=== PATIENT | female | born 1955 | race Caucasian/White ===

== ENCOUNTER 2018-03-11 20:41 | Inpatient (IN) | payer MEDICARE ==
[2018-03-11] MEDS ORDERED: NORMAL SALINE 1000 ML 1,000 ML IV ONE (21:26)
[2018-03-11] MEDS ORDERED: PIPERACILLIN/TAZOBACTAM 4.5 GM VIAL IV ONE (21:26)
[2018-03-11 21:37] LABS: VENOUS BLOOD BASE EXCESS 5.9 mmol/L; VENOUS BLOOD HCO3 34.3 mmol/L (20-32); VENOUS BLOOD PH 7.34 (7.30-7.42)
[2018-03-11 21:43] LABS: ABSOLUTE BASOPHILS # (AUTO) 0.1 10^3/uL (0.0-0.2); ABSOLUTE EOSINOPHILS # (AUTO) 0.1 10^3/uL (0.0-0.6); ABSOLUTE LYMPHOCYTES (AUTO) 0.6 10^3/uL (0.5-4.7); ABSOLUTE MONOCYTES (AUTO) 0.9 10^3/uL (0.1-1.4); ABSOLUTE NEUT (AUTO) 9.2 10^3/uL (1.7-8.2); BASOPHILS % (AUTO) 0.5 % (0-2); HEMATOCRIT 39.7 % (36.0-47.0); HEMOGLOBIN 13.6 g/dL (12.0-15.5); LYMPHOCYTES % (AUTO) 5.5 % (13-45); MEAN CORPUSCULAR HEMOGLOBIN 32.4 pg (27.0-33.4); MEAN CORPUSCULAR HGB CONC 34.1 g/dL (32.0-36.0); MEAN CORPUSCULAR VOLUME 95 fl (80-97); MONOCYTES % (AUTO) 8.5 % (3-13); PLATELET COUNT 517 10^3/uL (150-450); RED BLOOD COUNT 4.18 10^6/uL (3.72-5.28); RED CELL DISTRIBUTION WIDTH 18.6 % (11.5-14.0); SEGMENTED NEUTROPHILS % (AUTO) 84.5 % (42-78); TOTAL CELLS COUNTED % (AUTO) 100 %; WHITE BLOOD COUNT 10.9 10^3/uL (4.0-10.5)
[2018-03-11 21:44] LABS: VENOUS BLOOD PCO2 65.7 mmHg (35-63)
[2018-03-11 21:50] LABS: INTERNATIONAL RATION (INR) 0.94
[2018-03-11 21:54] LABS: ALANINE AMINOTRANSFERASE 29 U/L (9-52); ALKALINE PHOSPHATASE 164 U/L (38-126); ANION GAP 7 (5-19); ASPARTATE AMINO TRANSFERASE 30 U/L (14-36); BILIRUBIN,DIRECT 0.5 mg/dL (0.0-0.4); BILIRUBIN,TOTAL 0.9 mg/dL (0.2-1.3); BLOOD UREA NITROGEN 50 mg/dL (7-20); CALCIUM 7.8 mg/dL (8.4-10.2); CARBON DIOXIDE 31 mmol/L (22-30); CHLORIDE 97 mmol/L (98-107); GLUCOSE 66 mg/dL (75-110); POTASSIUM 4.9 mmol/L (3.6-5.0); SODIUM 134.6 mmol/L (137-145); TOTAL PROTEIN 5.9 g/dL (6.3-8.2)
--- NOTE | 2018-03-11 21:59 | RADIOLOGY REPORT (SQ) ---
EXAM DESCRIPTION: XR CHEST 1 VIEW COMPLETED DATE/TME: 03/11/2018 21:26 CLINICAL HISTORY: 62 years, Female, aspiration COMPARISON: None. NUMBER OF VIEWS: 1 TECHNIQUE: Portable chest LIMITATIONS: None. FINDINGS: Heart size at upper limits of normal. Osteopenia. Subsegmental atelectasis left lung base. Minor pleural thickening in the right upper lobe/apex. Lungs are otherwise clear. No pneumothorax IMPRESSION: Right apical pleural thickening. Subsegmental atelectasis left lung base. Osteopenia copyright 2010 [employer]- All Rights Reserved
--- NOTE | 2018-03-11 22:55 | EKG REPORT ---
SEVERITY:- ABNORMAL ECG - SINUS RHYTHM LOW VOLTAGE THROUGHOUT NONSPECIFIC T ABNORMALITIES, ANT-LAT LEADS BORDERLINE PROLONGED QT INTERVAL : Confirmed by: Munira Holder MD 11-Mar-2018 22:55:14
[2018-03-11] MEDS ORDERED: IPRATROPIUM/ALBUTEROL 0.5-2.5 MG/3 ML AMPUL NEB ONE (23:15)
[2018-03-11] MEDS ORDERED: DEXAMETHASONE SOD PHOSPHATE INJ 4 MG/1 ML VIAL IV ONE (23:41)
[2018-03-11] MEDS ORDERED: LEVETIRACETAM 1000 MG/NACL-ISO 1,000 MG/100 ML RTUPB IV ONE (23:41)
--- NOTE | 2018-03-11 23:53 | ER Document Report ---
ED Respiratory Problem - General Chief Complaint: Respiratory Distress Stated Complaint: RESPIRATORY DISTRESS Time Seen by Provider: 03/11/18 21:02 Mode of Arrival: Medic Information source: Patient, Relative TRAVEL OUTSIDE OF THE [place] IN LAST 30 DAYS: No - HPI Patient complains to provider of: Short of breath, Other - This 62-year-old female with a history of metastatic melanoma to the brain which is received radiation and now chemotherapy who was started on a new therapy yesterday by an oncologist Dr. Leonardo who became increasingly short of breath and more confused today at home according to her sister prompting him to call EMS. She notes that she is also been somewhat more sleepy. She had had an episode similar to this at the end of December requiring hospitalization at [facility] with adjustment of cardiac medicines thereafter to help. They have not tried anything at home to try and help with this nothing makes it better or worse. - Related Data Allergies/Adverse Reactions: No Known Allergies Allergy (Unverified 03/11/18 23:33) Past Medical History - General Information source: Patient, Relative Cannot obtain history due to: Mentally challenged, Unstable vital signs, Altered mental status - Social History Smoking Status: Unknown if Ever Smoked Family History: None Review of Systems - Review of Systems -: Yes All other systems reviewed and negative Physical Exam - Vital signs Vitals: Temp Pulse Resp BP Pulse Ox 100.4 F 93 26 H 81/48 L 82 L 03/11/18 20:43 03/11/18 20:43 03/11/18 20:43 03/11/18 20:43 03/11/18 20:43 - General General appearance: Lethargic In distress: Mild - HEENT Head: Normocephalic Eyes: Normal Conjunctiva: Normal Cornea: Normal Extraocular movements intact: Yes Eyelashes: Normal Pupils: PERRL - Respiratory Respiratory status: Tachypnea Chest status: Nontender Breath sounds: Rhonchi, Wheezing - Cardiovascular Rhythm: Regular Heart sounds: Normal auscultation Murmur: No - Abdominal Inspection: Normal Distension: No distension Bowel sounds: Normal Tenderness: Nontender Organomegaly: No organomegaly - Back Back: Normal, Nontender - Extremities General upper extremity: Normal inspection, Nontender, Normal color, Normal ROM, Normal temperature General lower extremity: Normal inspection, Nontender, Normal color, Normal ROM, Normal temperature, Normal weight bearing. No: Melissa's sign - Neurological Neuro grossly intact: No Cognition: Confused, Inattentive, Short term memory loss Orientation: Disoriented to person, Disoriented to place, Disoriented to events Rommel Coma Scale Eye Opening: Spontaneous Rommel Coma Scale Verbal: Confused [place] Coma Scale Motor: Obeys Commands Rommel Coma Scale Total: 14 Speech: Normal Cranial nerves: Normal Cerebellar coordination: Normal Motor strength normal: LUE, RUE, LLE, RLE - Psychological Associated symptoms: Uncooperative Course - Re-evaluation Re-evalutation: 62-year-old female presents for evaluation of shortness of breath. Patient is hypoxic, lightly febrile with low blood pressure. We will plan for presumptive workup for sepsis. Given that she is hypoxic with shortness of breath we will presumptively treat for pneumonia with Zosyn. Patient with unremarkable lactate does have an elevated white blood cell count potentially as a result of her chronic steroid use over the last month. She is demonstrating persistent hypotension despite administration of fluids, will finish second liter if she fails to respond appropriately to 2 L of fluid will consider initiation of vasoactive substance, likely levo fed. Performed a bedside ultrasound to assess patient's gross cardiac function, her estimated ejection fraction is approximately 40-45%, do not believe that this is decompensated heart failure accounting for her persistent hypotension at this time. I discussed with the sister the potential of worsening respiratory status and cardiac status she notes at this time that she would like to pursue full [employer] for her sister as she would "like to be resuscitated". Given my concern for this patient I will contact the on-call hospitalist, she also demonstrates endorgan damage with a markedly elevated BUN and creatinine. I am concerned that this patient is profoundly ill. Have administered Decadron at this patient as she could potentially be adrenally insufficient, she is received antibiotics, she is received Keppra as well as she does have potential disease. She will likely require intensive care level care. She has been reassessed multiple times and continues to demonstrate an oxygen requirement with intermittent jerks. This potentially represent focal seizures. We will plan for reassessment continue monitoring in emergency department until she is appropriately middle of the hospitalist service by Dr. Kings Francois. - Vital Signs Vital signs: Temp Pulse Resp BP Pulse Ox 100.4 F 93 21 H 79/56 L 92 03/11/18 20:43 03/11/18 20:43 03/11/18 22:01 03/11/18 22:00 03/11/18 22:01 - Laboratory Result Diagrams: 03/11/18 21:05 03/11/18 21:05 Laboratory results interpreted by me: 03/11/18 03/11/18 03/11/18 21:05 21:05 21:05 WBC 10.9 H RDW 18.6 H Plt Count 517 H Seg Neutrophils % 84.5 H Lymphocytes % 5.5 L Absolute Neutrophils 9.2 H VBG pCO2 65.7 H* VBG HCO3 34.3 H Sodium 134.6 L Chloride 97 L Carbon Dioxide 31 H BUN 50 H Creatinine 2.78 H Est GFR ( Amer) 21 L Est GFR (Non-Af Amer) 17 L Glucose 66 L Calcium 7.8 L Direct Bilirubin 0.5 H Alkaline Phosphatase 164 H Total Protein 5.9 L Albumin 3.0 L Critical Care Note - Critical Care Note Total time excluding time spent on procedures (mins): 55 Discharge - Discharge Clinical Impression: Shortness of breath, Confusion Pneumonia Qualifiers: Pneumonia type: due to unspecified organism Laterality: unspecified laterality Lung location: unspecified part of lung Qualified Code(s): J18.9 - Pneumonia, unspecified organism Hypotension Qualifiers: Hypotension type: unspecified hypotension type Qualified Code(s): I95.9 - Hypotension, unspecified Condition: Serious Disposition: ADMITTED INPATIENT Admitting Provider: Hospitalist Unit Admitted: ICU
[2018-03-12] MEDS: NORMAL SALINE 1000 ML 1,000 ML IV PRN ×2 (00:07→01:03)
[2018-03-12] MEDS ORDERED: NORMAL SALINE 1000 ML 1,000 ML IV PRN (00:52)
[2018-03-12] MEDS ORDERED: ACETAMINOPHEN 650 MG SUPP.RECT PR PRN (01:04)
[2018-03-12] MEDS ORDERED: MEROPENEM 500 MG VIAL IV SCH (01:15)
[2018-03-12] MEDS ORDERED: ALBUTEROL SULFATE 0.083% NEB 2.5 MG/3 ML AMPUL NEB PRN (01:18)
[2018-03-12] MEDS ORDERED: DEXTROSE 5%-WATER 250 ML with NOREPINEPHRINE BITARTRATE 4 MG IV PRN ×2 (01:20)
[2018-03-12] MEDS ORDERED: MEROPENEM 500 MG VIAL IV PRN (01:24)
[2018-03-12] MEDS ORDERED: NOREPINEPHRINE BITARTRATE INJ/PF 4 MG/4 ML SDV IV ONE (01:26)
--- NOTE | 2018-03-12 03:50 | PDOC H&P ---
History of Present Illness Admission Date/PCP: 03/12/18 00:26 MEREDITH GONSALEZ MD Patient complains of: Dyspnea History of Present Illness: EZ OZUNA is a 62 year old female who presented to the emergency room with a 1 day history of increasing dyspnea. Her family members provided the history that she became increasingly short of breath and increasingly confused at home today following a new first time dose chemotherapeutic agent administered by Dr. Gonsalez yesterday. The family noted additional signs of lethargy and somnolence accompanying her dyspnea and confusion. They indicate that she had a similar episode once in the recent past due to her congestive heart failure. They have not identified any aggravating or ameliorating factors for her dyspnea and have not tried any remedies or treatments at home. Because of the patient's general confusion and lethargy she is unable to provide meaningful input into her medical care at this time. In the emergency room patient was found to be hypotensive and mildly febrile as well as hypoxic. She was noted to have a normal lactic acid and a chest x-ray that was unremarkable. This suggested that the patient may have sepsis is most likely errant as she is most likely hypovolemic and therefore hypotensive with a resultant dyspnea and I further suspect that the fever may well be due to the recent chemotherapy agent. The patient is immunosuppressed with a long course of oral and parenteral ster oids having been administered over the last month or so. She will be admitted for further evaluation and treatment with the primary goal to improve her regulatory status and hopefully thereby improve her oxygenation which should help to resolve her mental confusion. Her fever will also be treated symptomatically with acetaminophen and/or ibuprofen. She will receive supplemental oxygen as required to maintain oxygenation in the 93% or greater range. Past Medical History Past Medical History: Due to the patient's mental status she is unable to contribute substantially to her medical care and thus it is nearly impossible to obtain a reasonable past me dical, past surgical, social or family history as there is little available in the way of records and no family members are present to provide further information at the time of my evaluation. All information provided below is obtained from other records. Cardiac Medical History: Reports: Congestive Heart Failure Neurological Medical History: Reports: Other - Metastatic melanoma (brain) Endocrine Medical History: Denies: Diabetes Mellitus Type 1 Renal/ Medical History: Reports: End Stage Renal Disease Malignancy Medical History: Reports: Brain Cancer - Metastatic melanoma Past Surgical History Past Surgical History: Due to the patient's mental status she is unable to contribute substantially to her medical care and thus it is nearly impossible to obtain a reasonable past medical, past surgical, social or family history as there is little available in the way of records and no family members are present to provide further information at the time of my evaluation. All information provided below is obtained from other records. Social History Information Source: [facility] Records Lives with: Family Smoking Status: Never Smoker Frequency of Alcohol Use: None Hx Recreational Drug Use: No Drugs: None Hx Prescription Drug Abuse: No - Advance Directive Resuscitation Status: Full Code Surrogate healthcare decision maker:: Sister Family History Family History: Due to the patient's mental status she is unable to contribute substantially to her medical care and thus it is nearly impossible to obtain a reasonable past medical, past surgical, social or family history as there is little available in the way of records and no family members are present to provide further information at the time of my evaluation. All information provided below is obtained from other records. Parental Family History Reviewed: No Children Family History Reviewed: No Sibling(s) Family History Reviewed.: No Medication/Allergy Allergies/Adverse Reactions: No Known Allergies Allergy (Unverified 03/11/18 23:33) Review of Systems ROS unobtainable: Due to mental status - Confusion and lethargy secondary to hypovolemia and/or post chemotherapy changes Physical Exam Vital Signs: Temp Pulse Resp BP Pulse Ox 100.4 F 93 21 H 79/56 L 92 03/11/18 20:43 03/11/18 20:43 03/11/18 22:01 03/11/18 22:00 03/11/18 22:01 Intake & Output 03/10/18 03/11/18 03/12/18 23:59 23:59 23:59 Intake Total 1000 Balance 1000 Weight 97.069 kg General appearance: PRESENT: no acute distress, obese, other - Minimal responsive to verbal and mild tactile stimuli. Head exam: PRESENT: atraumatic, normocephalic Eye exam: PRESENT: conjunctiva pink. ABSENT: scleral icterus Ear exam: PRESENT: normal external ear exam. ABSENT: bleeding, drainage Mouth exam: PRESENT: dry mucosa, neck supple Neck exam: ABSENT: thyromegaly, tracheal deviation Respiratory exam: PRESENT: clear to auscultation nancy, symmetrical, unlabored Cardiovascular exam: PRESENT: RRR. ABSENT: clicks, gallop, rubs Pulses: PRESENT: normal radial pulses, normal dorsalis pedis pul Vascular exam: PRESENT: normal capillary refill. ABSENT: pallor GI/Abdominal exam: PRESENT: normal bowel sounds, soft Rectal exam: PRESENT: deferred Extremities exam: ABSENT: joint swelling, pedal edema Musculoskeletal exam: ABSENT: deformity, dislocation Neurological exam: PRESENT: altered - Minimally responsive as noted above Psychiatric exam: PRESENT: other - Minimally responsive as noted above Skin exam: PRESENT: dry, intact, warm. ABSENT: jaundice, rash, urticaria Results Laboratory Results: 03/11/18 21:05 03/11/18 21:05 03/11/18 03/11/18 03/11/18 21:05 21:05 21:05 WBC 10.9 H RBC 4.18 Hgb 13.6 Hct 39.7 MCV 95 MCH 32.4 MCHC 34.1 RDW 18.6 H Plt Count 517 H Seg Neutrophils % 84.5 H Lymphocytes % 5.5 L Monocytes % 8.5 Eosinophils % 1.0 Basophils % 0.5 Absolute Neutrophils 9.2 H Absolute Lymphocytes 0.6 Absolute Monocytes 0.9 Absolute Eosinophils 0.1 Absolute Basophils 0.1 VBG pH VBG pCO2 VBG HCO3 VBG Base Excess Sodium 134.6 L Potassium 4.9 Chloride 97 L Carbon Dioxide 31 H Anion Gap 7 BUN 50 H Creatinine 2.78 H Est GFR ( Amer) 21 L Est GFR (Non-Af Amer) 17 L Glucose 66 L Lactic Acid 1.2 Calcium 7.8 L Total Bilirubin 0.9 AST 30 ALT 29 Alkaline Phosphatase 164 H Total Protein 5.9 L Albumin 3.0 L 03/11/18 21:05 WBC RBC Hgb Hct MCV MCH MCHC RDW Plt Count Seg Neutrophils % Lymphocytes % Monocytes % Eosinophils % Basophils % Absolute Neutrophils Absolute Lymphocytes Absolute Monocytes Absolute Eosinophils Absolute Basophils VBG pH 7.34 VBG pCO2 65.7 H* VBG HCO3 34.3 H VBG Base Excess 5.9 Sodium Potassium Chloride Carbon Dioxide Anion Gap BUN Creatinine Est GFR ( Amer) Est GFR (Non-Af Amer) Glucose Lactic Acid Calcium Total Bilirubin AST ALT Alkaline Phosphatase Total Protein Albumin Impressions: Chest X-Ray 03/11/18 21:26 IMPRESSION: Right apical pleural thickening. Subsegmental atelectasis left lung base. Osteopenia copyright 2010 [employer]- All Rights Reserved Assessment & Plan - Diagnosis (1) Hypotension Qualifiers: Hypotension type: unspecified hypotension type Qualified Code(s): I95.9 - Hypotension, unspecified Is this a current diagnosis for this admission?: Yes Plan: Patient's hypertension will be treated as hypovolemia initially with fluid resuscitation attempted with IV crystalloids. Consideration for use of a pressor agent will be made if patient does not respond well to fluid resuscitation. (2) Acute respiratory failure with hypoxia Is this a current diagnosis for this admission?: Yes Plan: Patient's respiratory failure be addressed with supplemental oxygen required to maintain her O2 sat greater than 93%. Patient shows no respiratory distress at this time and I do not think that it is appropriate to intubate this patient unless absolutely required. (3) Acute encephalopathy Is this a current diagnosis for this admission?: Yes Plan: After addressing the patient's hypoxia and hypovolemia if her encephalopathy has not improved further evaluation will be undertaken. Patient may need to have a CT scan or an MRI performed to evaluate her intracranial status. (4) Malignant melanoma metastatic to brain Is this a current diagnosis for this admission?: Yes Plan: With a known brain tumor and a recent new chemotherapeutic agent as part of this history many possibilities as to etiology of her several problems listed above need to be considered. - Time Time Spent: 30 to 50 Minutes Critical Time spent with patient: Less than 15 minutes - Inpatient Certification Based on my medical assessment, after consideration of the patient's comorbidities, presenting symptoms, or acuity I expect that the services needed warrant INPATIENT care.: Yes I certify that my determination is in accordance with my understanding of Medicare's requirements for reasonable and necessary INPATIENT services [42 CFR 412.3e].: Yes Medical Necessity: Significant Comorbidiites Make Outpatient Treatment Too Risky, Need Close Monitoring Due to Risk of Patient Decompensation, Need For IV Fluids, Need For Continuous Telemetry Monitoring, Risk of Complication if Not Cared For in Hospital
[2018-03-12] MEDS ORDERED: MEROPENEM 500 MG in NORMAL SALINE 50 ML IV SCH (06:00)
[2018-03-12] MEDS: FONDAPARINUX SODIUM INJ 2.5 MG/0.5 ML DISP.SYRIN SUBCUT SCH (08:01)
[2018-03-12] MEDS: LEVALBUTEROL HCL NEB 1.25 MG/3 ML AMPUL NEB SCH ×2 (08:24→15:15)
[2018-03-12] MEDS: IPRATROPIUM BROMIDE 0.02% NEB 0.5 MG/2.5 ML AMPUL NEB SCH ×2 (08:24→15:15)
[2018-03-12] MEDS ORDERED: LIDOCAINE 1% INJ-PF (10 MG/ML) 30 ML SDV ONE (09:35)
[2018-03-12 10:28] LABS: HEMATOCRIT 37.4 % (36.0-47.0); HEMOGLOBIN 12.6 g/dL (12.0-15.5); MEAN CORPUSCULAR HEMOGLOBIN 31.9 pg (27.0-33.4); MEAN CORPUSCULAR HGB CONC 33.7 g/dL (32.0-36.0); MEAN CORPUSCULAR VOLUME 94 fl (80-97); PLATELET COUNT 466 10^3/uL (150-450); RED BLOOD COUNT 3.96 10^6/uL (3.72-5.28); RED CELL DISTRIBUTION WIDTH 18.2 % (11.5-14.0); WHITE BLOOD COUNT 8.1 10^3/uL (4.0-10.5)
--- NOTE | 2018-03-12 10:40 | PDOC CONSULTATION ---
Consultation Consult Date: 03/12/18 Consult reason:: Hematology/Oncology consultation was requested for patient with known metastatic melanoma with brain mets. History of Present Illness Admission Date/PCP: 03/12/18 00:26 MEREDITH BOTELLO MD History of Present Illness: EZ OZUNA is a 62 year old female who was diagnosed with metastatic melanoma last year. She was found to have new brain mets about 1-2 months ago a nd received brain radiation for this. Her steroids had been weaned and she was started on new immunotherapy with her first dose last week. Her sister states that yesterday, she had increased dyspnea and was not responding as well as she had been previously. Her eyes were glassy. In the ED, she has been started on antibiotics for pneumonia. Currently, she is able to answer in 1 word sentences. She tracks with her eyes, but not consistently. She does not recognize me, but knows her sister. Past Medical History Cardiac Medical History: Reports: Congestive Heart Failure Neurological Medical History: Reports: Other - Metastatic melanoma (brain) Endocrine Medical History: Denies: Diabetes Mellitus Type 1 Renal/ Medical History: Reports: End Stage Renal Disease Malignancy Medical History: Reports: Brain Cancer - Metastatic melanoma Social History Lives with: Family Smoking Status: Never Smoker Frequency of Alcohol Use: None Hx Recreational Drug Use: No Drugs: None Hx Prescription Drug Abuse: No - Advance Directive Resuscitation Status: Full Code Family History Family History: Reviewed & Not Pertinent Parental Family History Reviewed: Yes Children Family History Reviewed: No Sibling(s) Family History Reviewed.: Yes Medication/Allergy Allergies/Adverse Reactions: No Known Allergies Allergy (Unverified 03/11/18 23:33) Review of Systems ROS unobtainable: Due to mental status Physical Exam Vital Signs: Temp Pulse Resp BP Pulse Ox 100.4 F 71 14 120/72 91 L 03/11/18 20:43 03/12/18 08:24 03/12/18 09:50 03/12/18 10:11 03/12/18 10:11 Intake & Output 03/11/18 03/12/18 03/13/18 06:59 06:59 06:59 Intake Total 3032 156 Balance 3032 156 Weight 97.069 kg General appearance: PRESENT: obese Exam: 62 year old female. Head exam: PRESENT: normocephalic, other - Pastor facies from steroids. Eye exam: PRESENT: EOMI Mouth exam: PRESENT: moist Neck exam: ABSENT: lymphadenopathy, tenderness Respiratory exam: PRESENT: clear to auscultation nancy Cardiovascular exam: PRESENT: RRR GI/Abdominal exam: PRESENT: soft. ABSENT: tenderness Extremities exam: PRESENT: other - Left ankle in walking cast (this has been present as long as I have known her). ABSENT: pedal edema Neurological exam: PRESENT: awake. ABSENT: oriented to place, oriented to time, oriented to situation Psychiatric exam: PRESENT: depressed Focused psych exam: ABSENT: restlessness Skin exam: PRESENT: normal color Results Laboratory Results: 03/11/18 03/11/18 03/11/18 21:05 21:05 21:05 WBC 10.9 H RBC 4.18 Hgb 13.6 Hct 39.7 MCV 95 MCH 32.4 MCHC 34.1 RDW 18.6 H Plt Count 517 H Seg Neutrophils % 84.5 H Lymphocytes % 5.5 L Monocytes % 8.5 Eosinophils % 1.0 Basophils % 0.5 Absolute Neutrophils 9.2 H Absolute Lymphocytes 0.6 Absolute Monocytes 0.9 Absolute Eosinophils 0.1 Absolute Basophils 0.1 VBG pH VBG pCO2 VBG HCO3 VBG Base Excess Sodium 134.6 L Potassium 4.9 Chloride 97 L Carbon Dioxide 31 H Anion Gap 7 BUN 50 H Creatinine 2.78 H Est GFR ( Amer) 21 L Est GFR (Non-Af Amer) 17 L Glucose 66 L Lactic Acid 1.2 Calcium 7.8 L Total Bilirubin 0.9 AST 30 ALT 29 Alkaline Phosphatase 164 H Total Protein 5.9 L Albumin 3.0 L 03/11/18 21:05 WBC RBC Hgb Hct MCV MCH MCHC RDW Plt Count Seg Neutrophils % Lymphocytes % Monocytes % Eosinophils % Basophils % Absolute Neutrophils Absolute Lymphocytes Absolute Monocytes Absolute Eosinophils Absolute Basophils VBG pH 7.34 VBG pCO2 65.7 H* VBG HCO3 34.3 H VBG Base Excess 5.9 Sodium Potassium Chloride Carbon Dioxide Anion Gap BUN Creatinine Est GFR ( Amer) Est GFR (Non-Af Amer) Glucose Lactic Acid Calcium Total Bilirubin AST ALT Alkaline Phosphatase Total Protein Albumin Status: Image reviewed by me Assessment & Plan - Diagnosis (1) Malignant melanoma metastatic to brain Is this a current diagnosis for this admission?: Yes Plan: She was just started on new immunotherapy which should have some penetration to the brain. It is too early to determine if this is working yet, but possible side effects include increased immune reaction, edema and pneumonitis/gastritis with fevers. I will restart Dexamethasone. (2) Acute encephalopathy Is this a current diagnosis for this admission?: Yes Plan: May be due to increased brain edema. Again, will restart steroids. She had been able to swallow pills without difficulty. I would make sure swallowing eval has been performed and IF OK, would change all meds back to PO if possible. (3) Hypotension Qualifiers: Hypotension type: unspecified hypotension type Qualified Code(s): I95.9 - Hypotension, unspecified Is this a current diagnosis for this admission?: Yes Plan: resolved with fluids. She is on antibiotics as well. - Plan Summary Plan Summary: I will continue to follow her with you. Please call me with any questions or concerns. I agree with electrolyte replacement and other supportive measures. Patient was discussed with Dr. Kimball in the ED.
[2018-03-12 10:41] LABS: ALANINE AMINOTRANSFERASE 36 U/L (9-52); ALBUMIN 2.7 g/dL (3.5-5.0); ALKALINE PHOSPHATASE 151 U/L (38-126); ANION GAP 7 (5-19); ASPARTATE AMINO TRANSFERASE 33 U/L (14-36); BILIRUBIN,DIRECT 0.5 mg/dL (0.0-0.4); BILIRUBIN,TOTAL 0.6 mg/dL (0.2-1.3); BLOOD UREA NITROGEN 39 mg/dL (7-20); CALCIUM 7.1 mg/dL (8.4-10.2); CARBON DIOXIDE 28 mmol/L (22-30); CHLORIDE 104 mmol/L (98-107); GLUCOSE 120 mg/dL (75-110); POTASSIUM 4.7 mmol/L (3.6-5.0); SODIUM 138.9 mmol/L (137-145); TOTAL PROTEIN 5.4 g/dL (6.3-8.2)
[2018-03-12] MEDS: PANTOPRAZOLE SODIUM 40 MG VIAL IV SCH ×2 (10:47→21:37)
[2018-03-12] MEDS: MEROPENEM 500 MG in NORMAL SALINE 50 ML IV SCH ×2 (10:47→21:37)
[2018-03-12 10:48] LABS: ABSOLUTE LYMPHOCYTES# (MANUAL) 0.3 10^3/uL (0.5-4.7); ABSOLUTE MONOCYTES # (MANUAL) 0.4 10^3/uL (0.1-1.4); ABSOLUTE NEUTROPHILS# (MANUAL) 7.4 10^3/uL (1.7-8.2); BASOPHILS % (MANUAL) 0 % (0-2); EOSINOPHILS % (MANUAL) 0 % (0-6); LYMPHOCYTES % (MANUAL) 4 % (13-45); MONOCYTES % (MANUAL) 5 % (3-13); SEGMENTED NEUTROPHILS % (MAN) 91 % (42-78); TOTAL CELLS COUNTED 100
[2018-03-12] MEDS: LEVETIRACETAM 500 MG/NACL-ISO 500 MG/100 ML RTUPB IV SCH ×2 (10:48→22:50)
[2018-03-12 10:49] LABS: POIKILOCYTOSIS SLIGHT; TOXIC VACUOLATION PRESENT
[2018-03-12 10:50] LABS: ANISOCYTOSIS 2+; PLATELET CLUMPS PRESENT; PLATELET COMMENT ADEQUATE; TEAR DROP CELLS SLIGHT
--- NOTE | 2018-03-12 10:55 | RADIOLOGY REPORT (SQ) ---
EXAM DESCRIPTION: CHEST SINGLE VIEW COMPLETED DATE/TIME: 03/12/2018 10:24 am REASON FOR STUDY: central line placement COMPARISON: AP chest 03/11/2018 EXAM PARAMETERS: NUMBER OF VIEWS: One view. TECHNIQUE: Single frontal radiographic view of the chest acquired. RADIATION DOSE: NA LIMITATIONS: None. FINDINGS: LUNGS AND PLEURA: Minimal right apical pleural thickening/ parenchymal scarring is unchang ed from 03/11/2018. Minimal lingular scarring or atelectasis is also unchanged from 03/15/2018. No acute infiltrates. No pleural effusion or pneumothorax. MEDIASTINUM AND HILAR STRUCTURES: No masses. Contour normal. HEART AND VASCULAR STRUCTURES: Stable mild cardiomegaly BONES: No acute findings. HARDWARE: Left jugular central line tip superior vena cava. OTHER: No other significant finding. IMPRESSION: Left jugular central line tip superior vena cava. No pneumothorax. TECHNICAL DOCUMENTATION: JOB ID: [id number] [employer] All Rights Reserved Reading location - IP/workstation name: [email or web address]
--- NOTE | 2018-03-12 11:18 | RADIOLOGY REPORT (SQ) ---
EXAM DESCRIPTION: CT HEAD WITHOUT COMPLETED DATE/TIME: 03/12/2018 10:46 am REASON FOR STUDY: AMS; Brain Mets COMPARISON: AP chest 03/12/2018 MRI brain 02/14/2018, 12/18/2016 TECHNIQUE: Axial images acquired through the brain without intravenous contrast. Images reviewed wi th bone, brain and subdural windows. Additional sagittal and coronal reconstructions were generated. Images stored on PACS. All CT scanners at this facility use dose modulation, iterative reconstruction, and/or weight based d osing when appropriate to reduce radiation dose to as low as reasonably achievable (ALARA). [facility]: Dose Right [facility]: CareDose [facility]: Dose Right [facility]: Teradose 4D [facility]: [employer] RADIATION DOSE: CT Rad equipment meets quality standard of care and radiation dose reduction techniq ues were employed. CTDIvol: 53.2 mGy. DLP: 1044 mGy-cm. mGy. LIMITATIONS: None. FINDINGS: VENTRICLES: Normal size and contour. CEREBRUM and CEREBELLUM: Multiple subcentimeter hyperdense nodules are scattered throughout the cereb ral hemispheres bilaterally. A 1 cm nodule is present in the right lateral basal ganglia, unchanged from MRI brain 02/14/2018. No acute superimposed hemorrhage. No mass effect or midline shift. No CT evidence of large territor y acute ischemic change. These findings were called to Ramila Hester STAYING MACHINE OPERATOR. EXTRAAXIAL SPACES: No fluid collections. No masses. ORBITS AND GLOBE: No intra- or extraconal masses. Normal contour of globe without masses. CALVARIUM: No fracture. PARANASAL SINUSES: No fluid or mucosal thickening. SOFT TISSUES: No mass or hematoma. OTHER: No other significant finding. 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 COMMENT: Quality ID # [id number]: Final reports with documentation of one or more dose reduction techniques (e.g., Automated exposure control, adjustment of the mA and/or kV according to patient size, use of iterative reconstruction technique) TECHNICAL DOCUMENTATION: JOB ID: [id number] [employer]- All Rights Reserved Reading location - IP[facility]workstation [facility]: [facility] [place]
[2018-03-12] MEDS: DEXAMETHASONE SOD PHOSPHATE INJ 4 MG/1 ML VIAL IV SCH ×2 (12:33→18:03)
--- NOTE | 2018-03-12 15:37 | OPERATIVE REPORT E ---
Operative Report NAME: EZ OZUNA : 1955 AGE: 62Y DATE OF SURGERY: 03/12/2018 ROOM: 602 PREOPERATIVE DIAGNOSIS: POOR VEINS FOR INTRAVENOUS ACCESS; NEEDED CENTRAL LINE FOR CT SCAN OF THE BRAIN. POSTOPERATIVE DIAGNOSIS: POOR VEINS FOR INTRAVENOUS ACCESS; NEEDED CENTRAL LINE FOR CT SCAN OF THE BRAIN. OPERATION: INSERTION OF LEFT INTERNAL JUGULAR VEIN TRIPLE LUMEN CATHETER UNDER ULTRASOUND GUIDANCE. SURGEON: FISH VALENZUELA M.D. ANESTHESIA: Local. PROCEDURE: The patient was placed in slight Trendelenburg position, and the left neck prepped and draped in the usual sterile fashion. We used an ultrasound and the left internal jugular vein was identified. Local anesthesia infiltrated. Needle was inserted several times, but unable to obtain; eventually, the left internal jugular vein was then punctured with non pulsatile backflow and guidewire passed through the needle directed to the superior vena cava. Puncture site enlarged and dilated. A triple lumen catheter was inserted through the guidewire to a distance of about 18 cm. All the three ports aspirated blood easily and instilled saline easily. Catheter was anchored to the skin with 3-0 silk. Biopatch was placed at the insertion site, and triple lumen catheter inserted. Chest x-ray will be obtained for placement and to rule out any pneumothorax. Chest x ray was done which showed catheter in good position with the tip at the superior vena cava with no pneumothorax. DICTATING PHYSICIAN: FISH VALENZUELA M.D. [id number] PHY#: [id number] ID: [id number] JOB#: [id number] ACCT: [id number] cc:FISH VALENZUELA M.D. > [facility]
--- NOTE | 2018-03-12 17:28 | Progress Note ---
Provider Note Provider Note: 62 y.o. F with metastatic melanoma and newly diagnosed brain mets. The patient received radiation therapy for her brain mets. Steroids were recently weaned and the patient was started on a new immunotherapy approx. 1 week ago. She was brought to [facility] last night by her sister for AMS and dyspnea. According the the sister, the patient has been acting more and more confused since her new treatment started. Upon assessment, the patient is resting in bed on supplemental oxygen via nasal cannula. She is tachypneic, receiving a nebulizer treatment. The patient is awake, able to answer most questions appropriately using 2-3 word phrases. The patient knows her name, her location, and the name of her sister (at bedside), but is unsure why she is in the hospital. The patient makes good eye contact. PERRLA. Able to follow basic commands. 5/5 strength in all extremities. She is noted to have spams to her RUE and RLE, which the sister states is new since the first immunotherapy infusion. METASTATIC MELANOMA w/BRAIN METS: patient of Dr. Gonsalez. Resume dexamethasone. Keppra IV for seizure prophylaxis. HYPOTENSION: SEPSIS secondary to PNA vs. SIRS response to new immunotherapy. Now requiring levophed gtt to maintain MAP>65. Bedside US in ED estimates the LVEF 40% but this is somewhat unreliable. Patient has no history of heart disease. No ECHOcardiogram on record. BNP elevated >2000. Plan to check ECHOcardiogram tomorrow. HYPOXIA: PNA vs. SIRS response to new immunotherapy. Empiric antibiotic coverage for PNA. Patient may require CT chest if she continues to experience respiratory distress. ARF: secondary to hypotension. Creatinine improving following IVF and improved blood pressure. Cr 2.58-->1.3 ENCEPHALOPATHY: multifactoral - hypotension, hypoxia, acute renal failure, brain lesions. Seems to be improving with IVF, vasopressors and supplemental O2 CODE STATUS: sister is POA. States she wants 'everything done. Full resuscitation.'
[2018-03-12] MEDS ORDERED: LEVETIRACETAM 500 MG/NACL-ISO 500 MG/100 ML RTUPB IV ONE (22:11)
[2018-03-13] MEDS: LEVALBUTEROL HCL NEB 1.25 MG/3 ML AMPUL NEB SCH ×4 (00:25→23:36)
[2018-03-13] MEDS: IPRATROPIUM BROMIDE 0.02% NEB 0.5 MG/2.5 ML AMPUL NEB SCH ×4 (00:25→23:36)
[2018-03-13 04:29] LABS: HEMATOCRIT 34.2 % (36.0-47.0); HEMOGLOBIN 11.7 g/dL (12.0-15.5); MEAN CORPUSCULAR HEMOGLOBIN 32.1 pg (27.0-33.4); MEAN CORPUSCULAR HGB CONC 34.1 g/dL (32.0-36.0); MEAN CORPUSCULAR VOLUME 94 fl (80-97); PLATELET COUNT 467 10^3/uL (150-450); RED BLOOD COUNT 3.64 10^6/uL (3.72-5.28); RED CELL DISTRIBUTION WIDTH 17.8 % (11.5-14.0); WHITE BLOOD COUNT 6.9 10^3/uL (4.0-10.5)
[2018-03-13 04:55] LABS: ALANINE AMINOTRANSFERASE 29 U/L (9-52); ALBUMIN 2.6 g/dL (3.5-5.0); ALKALINE PHOSPHATASE 128 U/L (38-126); ASPARTATE AMINO TRANSFERASE 26 U/L (14-36); BILIRUBIN,DIRECT 0.5 mg/dL (0.0-0.4); BILIRUBIN,TOTAL 0.6 mg/dL (0.2-1.3); BLOOD UREA NITROGEN 26 mg/dL (7-20); CALCIUM 7.7 mg/dL (8.4-10.2); GLUCOSE 159 mg/dL (75-110); POTASSIUM 4.7 mmol/L (3.6-5.0); TOTAL PROTEIN 5.2 g/dL (6.3-8.2)
[2018-03-13 05:00] LABS: CARBON DIOXIDE 31 mmol/L (22-30); CHLORIDE 105 mmol/L (98-107); SODIUM 138.6 mmol/L (137-145)
[2018-03-13 05:03] LABS: ANION GAP 3 (5-19)
[2018-03-13 05:05] LABS: BASOPHILS % (MANUAL) 0 % (0-2); EOSINOPHILS % (MANUAL) 0 % (0-6)
[2018-03-13 05:06] LABS: ABSOLUTE LYMPHOCYTES# (MANUAL) 0.4 10^3/uL (0.5-4.7); ABSOLUTE MONOCYTES # (MANUAL) 0.1 10^3/uL (0.1-1.4); ABSOLUTE NEUTROPHILS# (MANUAL) 6.3 10^3/uL (1.7-8.2); ANISOCYTOSIS 1+; BAND NEUTROPHILS % (MANUAL) 1 % (3-5); LYMPHOCYTES % (MANUAL) 6 % (13-45); MONOCYTES % (MANUAL) 2 % (3-13); PLATELET COMMENT ADEQUATE; PLATELET GIANT PRESENT; PLATELET LARGE PRESENT; SCHISTOCYTES SLIGHT; SEGMENTED NEUTROPHILS % (MAN) 91 % (42-78); TOTAL CELLS COUNTED 100
[2018-03-13] MEDS: PANTOPRAZOLE SODIUM 40 MG VIAL IV SCH ×2 (11:32→21:27)
[2018-03-13] MEDS: LEVETIRACETAM 500 MG/NACL-ISO 500 MG/100 ML RTUPB IV SCH ×2 (11:32→21:26)
[2018-03-13] MEDS: DEXAMETHASONE SOD PHOSPHATE INJ 4 MG/1 ML VIAL IV SCH ×2 (11:32→17:13)
[2018-03-13] MEDS: MEROPENEM 500 MG in NORMAL SALINE 50 ML IV SCH ×2 (11:32→21:26)
[2018-03-13] MEDS: FONDAPARINUX SODIUM INJ 2.5 MG/0.5 ML DISP.SYRIN SUBCUT SCH (11:33)
--- NOTE | 2018-03-13 13:56 | PDOC PROGRESS REPORT ---
Subjective Progress Note for:: 03/13/18 Subjective:: 62 y.o. F with metastatic melanoma and newly diagnosed brain mets. The patient received radiation therapy for her brain mets. Steroids were recently weaned and the patient was started on a new immunotherapy approx. 1 week ago. Admitted to [facility] for SEPSIS - suspected infection source being PNA. The patient was seen this morning on rounds, she is resting comfortably in bed on nasal cannula. She looks markedly better when compared to yesterday. The patient is awake and oriented to time, place, person and situation. She is able to answer questions appropriately, although, she struggles with more complex questions (who is the president? why are you taking medication x?). She follows command appropriately. 5/5 strength in all extremities. Her lungs are clear to auscultation, but she requires supplemental O2 to maintain SPO2>90% (she does not wear O2 at home). Levophed gtt has been off since yesterday at 1200. Blood pressure has remained stable. The patient no longer requires ICU care, plan to downgrade to IMCU. Reason For Visit: ACUTE HYPOXIC RESPIRATORY FAILURE Physical Exam Vital Signs: Temp Pulse Resp BP Pulse Ox 97.5 F 73 15 108/61 98 03/13/18 05:26 03/13/18 00:27 03/13/18 06:00 03/13/18 05:48 03/13/18 06:00 Intake & Output 03/12/18 03/13/18 03/14/18 06:59 06:59 06:59 Intake Total 3032 732 Output Total 200 Balance 3032 532 Weight 97.069 kg 95.7 kg General appearance: PRESENT: no acute distress, morbidly obese Head exam: PRESENT: atraumatic Eye exam: PRESENT: conjunctiva pink, PERRLA Mouth exam: PRESENT: dry mucosa, tongue midline, other - cracked/dry lips Teeth exam: PRESENT: poor dentation Neck exam: PRESENT: full ROM Respiratory exam: PRESENT: clear to auscultation nancy, symmetrical, unlabored. ABSENT: rhonchi, wheezes Cardiovascular exam: PRESENT: +S1, +S2 Pulses: PRESENT: normal radial pulses, normal dorsalis pedis pul Vascular exam: PRESENT: normal capillary refill GI/Abdominal exam: PRESENT: normal bowel sounds, soft. ABSENT: tenderness Rectal exam: PRESENT: deferred Extremities exam: PRESENT: full ROM, +1 edema - BILATERAL LOWER EXTREMITIES Musculoskeletal exam: PRESENT: full ROM, normal inspection Neurological exam: PRESENT: alert, awake, oriented to person, oriented to place, oriented to time. ABSENT: oriented to situation Skin exam: PRESENT: dry, intact, warm. ABSENT: normal color - SCATTERED PATCHES OF ERYTHEMA TO FACE, SCALP, ANTERIOR CHEST WALL. LIKELY SECONDARY TO CHEMO. THE PATIENT DOES NOT COMPLAIN OF PRURITIS. Results Laboratory Results: 03/13/18 04:20 03/13/18 04:20 03/12/18 03/12/18 03/12/18 10:13 10:13 10:13 WBC 8.1 RBC 3.96 Hgb 12.6 Hct 37.4 MCV 94 MCH 31.9 MCHC 33.7 RDW 18.2 H Plt Count 466 H Seg Neutrophils % Not Reportable Lymphocytes % Not Reportable Monocytes % Not Reportable Eosinophils % Not Reportable Basophils % Not Reportable Absolute Neutrophils Not Reportable Absolute Lymphocytes Not Reportable Absolute Monocytes Not Reportable Absolute Eosinophils Not Reportable Absolute Basophils Not Reportable Sodium 138.9 Potassium 4.7 Chloride 104 Carbon Dioxide 28 Anion Gap 7 BUN 39 H Creatinine 1.83 H Est GFR ( Amer) 34 L Est GFR (Non-Af Amer) 28 L Glucose 120 H Lactic Acid 0.6 L Calcium 7.1 L Magnesium Total Bilirubin 0.6 AST 33 ALT 36 Alkaline Phosphatase 151 H Ammonia Total Protein 5.4 L Albumin 2.7 L 03/13/18 03/13/18 03/13/18 04:20 04:20 04:20 WBC 6.9 RBC 3.64 L Hgb 11.7 L Hct 34.2 L MCV 94 MCH 32.1 MCHC 34.1 RDW 17.8 H Plt Count 467 H Seg Neutrophils % Not Reportable Lymphocytes % Not Reportable Monocytes % Not Reportable Eosinophils % Not Reportable Basophils % Not Reportable Absolute Neutrophils Not Reportable Absolute Lymphocytes Not Reportable Absolute Monocytes Not Reportable Absolute Eosinophils Not Reportable Absolute Basophils Not Reportable Sodium 138.6 Potassium 4.7 Chloride 105 Carbon Dioxide 31 H Anion Gap 3 L BUN 26 H Creatinine 0.88 Est GFR ( Amer) > 60 Est GFR (Non-Af Amer) > 60 Glucose 159 H Lactic Acid Calcium 7.7 L Magnesium 2.2 Total Bilirubin 0.6 AST 26 ALT 29 Alkaline Phosphatase 128 H Ammonia < 8.7 L Total Protein 5.2 L Albumin 2.6 L 03/12/18 10:13 NT-Pro-B Natriuret Pep 2840 H Impressions: Chest X-Ray 03/12/18 00:00 IMPRESSION: Left jugular central line tip superior vena cava. No pneumothorax. 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 Status: Imported from PACS Assessment & Plan - Diagnosis (1) Sepsis Qualifiers: Sepsis type: sepsis due to unspecified organism Qualified Code(s): A41.9 - Sepsis, unspecified organism Is this a current diagnosis for this admission?: Yes (2) Acute respiratory failure with hypoxia Is this a current diagnosis for this admission?: Yes Plan: Improving Requiring supplemental O2 via nasal cannula for SPO2>90% PNA vs. SIRS response to new immunotherapy vs. new CHF. CXR shows pleural thickening in RUL and LLL atelectasis Empiric antibiotic coverage for PNA. 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 Keppra IV for seizure prophylaxis. Head CT shows multiple subcentimeter nodules scattered throughout bilateral cerebral hemispheres. 1cm nodule in R basal ganglia. Unchanged from 01/2018 Seizure precautions (4) Acute renal failure Qualifiers: Acute renal failure type: unspecified Qualified Code(s): N17.9 - Acute kidney failure, unspecified Is this a current diagnosis for this admission?: Yes Plan: Resolved No history of renal disease Likely secondary to hypotension secondary to sepsis/sirs BP now improved Initial Creatinine 2.58, now improved to 0.88 (5) Acute encephalopathy Is this a current diagnosis for this admission?: Yes Plan: Multifactoral - hypotension, hypoxia, acute renal failure, brain lesions. Greatly improved with IVF, supplemental O2, and normalization of BP A&O x 4 but difficulty with complex questioning CT Head results listed above, no need for further imaging (6) Hypotension Qualifiers: Hypotension type: unspecified hypotension type Qualified Code(s): I95.9 - Hypotension, unspecified Is this a current diagnosis for this admission?: Yes Plan: Resolved. Secondary to SEPSIS secondary to PNA vs. SIRS response to new immunotherapy. Received IVF in ED and briefly on levophed gtt BP now within normal range without need for vasoactives/aggressive IVF resuscitation - Time Time Spent with patient: 15-24 minutes Medications reviewed and adjusted accordingly: Yes Anticipated discharge: Home - Inpatient Certification Based on my medical assessment, after consideration of the patient's co morbidities, presenting symptoms, or acuity I expect that the services needed warrant INPATIENT care.: Yes I certify that my determination is in accordance with my understanding of Medicare's requirements for reasonable and necessary INPATIENT services [42 CFR 412.3e].: Yes Medical Necessity: Need For Continuous Telemetry Monitoring, Need for IV Antibiotics - Plan Summary Plan Summary: IV ANTIBIOTICS. CLOSELY MONITOR MENTAL STATUS. SEIZURE PRECAUTIONS.
[2018-03-13] MEDS: ACETAMINOPHEN 325 MG TABLET PO PRN (18:34)
[2018-03-14 06:03] LABS: HEMOGLOBIN 12.1 g/dL (12.0-15.5); MEAN CORPUSCULAR HEMOGLOBIN 32.4 pg (27.0-33.4); MEAN CORPUSCULAR HGB CONC 34.7 g/dL (32.0-36.0); MEAN CORPUSCULAR VOLUME 93 fl (80-97); PLATELET COUNT 500 10^3/uL (150-450); RED BLOOD COUNT 3.75 10^6/uL (3.72-5.28); RED CELL DISTRIBUTION WIDTH 17.9 % (11.5-14.0); WHITE BLOOD COUNT 8.2 10^3/uL (4.0-10.5)
[2018-03-14 06:08] LABS: ALANINE AMINOTRANSFERASE 24 U/L (9-52); ALBUMIN 2.6 g/dL (3.5-5.0); ALKALINE PHOSPHATASE 126 U/L (38-126); ASPARTATE AMINO TRANSFERASE 19 U/L (14-36); BILIRUBIN,DIRECT 0.3 mg/dL (0.0-0.4); BILIRUBIN,TOTAL 0.5 mg/dL (0.2-1.3); BLOOD UREA NITROGEN 14 mg/dL (7-20); CALCIUM 8.4 mg/dL (8.4-10.2); GLUCOSE 151 mg/dL (75-110); TOTAL PROTEIN 5.2 g/dL (6.3-8.2)
[2018-03-14 06:13] LABS: CARBON DIOXIDE 32 mmol/L (22-30); CHLORIDE 108 mmol/L (98-107); SODIUM 141.8 mmol/L (137-145)
[2018-03-14 06:16] LABS: ANION GAP 2 (5-19)
[2018-03-14 06:54] LABS: ABSOLUTE LYMPHOCYTES# (MANUAL) 0.1 10^3/uL (0.5-4.7); ABSOLUTE MONOCYTES # (MANUAL) 0.7 10^3/uL (0.1-1.4); ABSOLUTE NEUTROPHILS# (MANUAL) 7.5 10^3/uL (1.7-8.2); BASOPHILS % (MANUAL) 0 % (0-2); EOSINOPHILS % (MANUAL) 0 % (0-6); LYMPHOCYTES % (MANUAL) 1 % (13-45); MONOCYTES % (MANUAL) 8 % (3-13); SEGMENTED NEUTROPHILS % (MAN) 91 % (42-78); TOTAL CELLS COUNTED 100
[2018-03-14 06:55] LABS: ANISOCYTOSIS 2+; PLATELET COMMENT ADEQUATE; POLYCHROMASIA 1+
[2018-03-14] MEDS: IPRATROPIUM BROMIDE 0.02% NEB 0.5 MG/2.5 ML AMPUL NEB SCH ×2 (07:39→15:56)
[2018-03-14] MEDS: LEVALBUTEROL HCL NEB 1.25 MG/3 ML AMPUL NEB SCH ×2 (07:39→15:56)
--- NOTE | 2018-03-14 08:04 | PDOC PROGRESS REPORT ---
Subjective Progress Note for:: 03/14/18 Subjective:: Patient still only able to speak a few words, but family states that her confusion has improved. Her headaches worsened again last night and she is requesting something stronger for pain. Nurses report that she is now on IMCU status, but there are no beds available upstairs to move her out of ICU. Reason For Visit: ACUTE HYPOXIC RESPIRATORY FAILURE Physical Exam Vital Signs: Temp Pulse Resp BP Pulse Ox 97.7 F 75 19 131/89 H 88 L 03/14/18 04:00 03/14/18 07:00 03/14/18 04:00 03/14/18 03:49 03/14/18 04:00 Intake & Output 03/13/18 03/14/18 03/15/18 06:59 06:59 06:59 Intake Total 732 150 Output Total 200 750 Balance 532 -600 Weight 95.7 kg 95.9 kg General appearance: PRESENT: obese Head exam: PRESENT: normocephalic Respiratory exam: PRESENT: prolonged expiratory phas Cardiovascular exam: PRESENT: RRR GI/Abdominal exam: PRESENT: soft. ABSENT: tenderness Neurological exam: PRESENT: alert, altered, awake, oriented to person. ABSENT: oriented to place, oriented to time, oriented to situation Psychiatric exam: PRESENT: depressed Skin exam: PRESENT: normal color Results Laboratory Results: 03/14/18 05:40 03/14/18 05:40 03/14/18 03/14/18 05:40 05:40 WBC 8.2 RBC 3.75 Hgb 12.1 Hct 35.0 L MCV 93 MCH 32.4 MCHC 34.7 RDW 17.9 H Plt Count 500 H Seg Neutrophils % Not Reportable Lymphocytes % Not Reportable Monocytes % Not Reportable Eosinophils % Not Reportable Basophils % Not Reportable Absolute Neutrophils Not Reportable Absolute Lymphocytes Not Reportable Absolute Monocytes Not Reportable Absolute Eosinophils Not Reportable Absolute Basophils Not Reportable Sodium 141.8 Potassium 4.0 Chloride 108 H Carbon Dioxide 32 H Anion Gap 2 L BUN 14 Creatinine 0.72 Est GFR ( Amer) > 60 Est GFR (Non-Af Amer) > 60 Glucose 151 H Calcium 8.4 Magnesium 1.9 Total Bilirubin 0.5 AST 19 ALT 24 Alkaline Phosphatase 126 Total Protein 5.2 L Albumin 2.6 L 03/12/18 10:13 NT-Pro-B Natriuret Pep 2840 H Impressions: Chest X-Ray 03/12/18 00:00 IMPRESSION: Left jugular central line tip superior vena cava. No pneumothorax. 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 Overall, prognosis is poor, but still hoping for some response, so that her quality of life may improve over the next few months. (2) Acute encephalopathy Is this a current diagnosis for this admission?: Yes Plan: Improved with steroids. Continue oxygen for hypoxia. (3) Hypotension Qualifiers: Hypotension type: unspecified hypotension type Qualified Code(s): I95.9 - Hypotension, unspecified Is this a current diagnosis for this admission?: Yes Plan: resolved.
[2018-03-14] MEDS: DEXAMETHASONE SOD PHOSPHATE INJ 4 MG/1 ML VIAL IV SCH ×2 (10:09→17:25)
[2018-03-14] MEDS: LEVETIRACETAM 500 MG/NACL-ISO 500 MG/100 ML RTUPB IV SCH ×2 (10:09→21:53)
[2018-03-14] MEDS: FONDAPARINUX SODIUM INJ 2.5 MG/0.5 ML DISP.SYRIN SUBCUT SCH (10:09)
[2018-03-14] MEDS: MEROPENEM 500 MG in NORMAL SALINE 50 ML IV SCH ×2 (10:09→21:53)
[2018-03-14] MEDS: PANTOPRAZOLE SODIUM 40 MG VIAL IV SCH ×2 (10:09→21:53)
[2018-03-14] MEDS: ACETAMINOPHEN 325 MG TABLET PO PRN ×2 (12:39→19:44)
--- NOTE | 2018-03-14 16:05 | PDOC PROGRESS REPORT ---
Subjective Progress Note for:: 03/14/18 Subjective:: 62 y.o. F with metastatic melanoma and newly diagnosed brain mets. The patient received radiation therapy for her brain mets. Steroids were recently weaned and the patient was started on a new immunotherapy approx. 1 week ago. Admitted to [facility] for SEPSIS - suspected infection source being PNA. The patient was seen this morning on rounds, she is resting comfortably in bed on nasal cannula. Family is at the bedside. The patient is awake and oriented to time, place, person and situation. She is able to answer questions appropriately, although, she struggles with more complex questions (who is the president? why are you taking medication x?). She follows command appropriately. 5/5 strength in all extremities. Her lungs are clear to auscultation, but she requires 5L supplemental O2 to maintain SPO2>90% (she does not wear O2 at home). The patient was downgraded to IMCU yesterday. Plan to continue IV antibiotics for suspected pneumonia and wean supplemental oxygen as tolerated. Reason For Visit: ACUTE HYPOXIC RESPIRATORY FAILURE Physical Exam Vital Signs: Temp Pulse Resp BP Pulse Ox 97.3 F 69 20 124/70 100 03/14/18 08:00 03/14/18 08:00 03/14/18 08:19 03/14/18 08:19 03/14/18 08:19 Intake & Output 03/13/18 03/14/18 03/15/18 06:59 06:59 06:59 Intake Total 732 300 Output Total 200 750 Balance 532 -450 Weight 95.7 kg 95.9 kg General appearance: PRESENT: no acute distress, morbidly obese Head exam: PRESENT: atraumatic Eye exam: PRESENT: conjunctiva pink, PERRLA Mouth exam: PRESENT: moist, tongue midline Neck exam: PRESENT: full ROM Respiratory exam: PRESENT: clear to auscultation nancy, symmetrical, unlabored, other - REQUIRING SUPPLEMENTAL O2 VIA NASAL CANNULA. Cardiovascular exam: PRESENT: +S1, +S2 Pulses: PRESENT: normal radial pulses, normal dorsalis pedis pul Vascular exam: PRESENT: normal capillary refill GI/Abdominal exam: PRESENT: soft. ABSENT: distended, tenderness Rectal exam: PRESENT: deferred Extremities exam: PRESENT: full ROM. ABSENT: pedal edema Musculoskeletal exam: PRESENT: ambulatory - WITH ASSISTANCE, full ROM, normal inspection Neurological exam: PRESENT: alert, awake, oriented to person, oriented to place, oriented to time, oriented to situation Psychiatric exam: PRESENT: appropriate affect Skin exam: PRESENT: dry, intact, normal color Results Laboratory Results: 03/14/18 05:40 03/14/18 05:40 03/14/18 03/14/18 05:40 05:40 WBC 8.2 RBC 3.75 Hgb 12.1 Hct 35.0 L MCV 93 MCH 32.4 MCHC 34.7 RDW 17.9 H Plt Count 500 H Seg Neutrophils % Not Reportable Lymphocytes % Not Reportable Monocytes % Not Reportable Eosinophils % Not Reportable Basophils % Not Reportable Absolute Neutrophils Not Reportable Absolute Lymphocytes Not Reportable Absolute Monocytes Not Reportable Absolute Eosinophils Not Reportable Absolute Basophils Not Reportable Sodium 141.8 Potassium 4.0 Chloride 108 H Carbon Dioxide 32 H Anion Gap 2 L BUN 14 Creatinine 0.72 Est GFR ( Amer) > 60 Est GFR (Non-Af Amer) > 60 Glucose 151 H Calcium 8.4 Magnesium 1.9 Total Bilirubin 0.5 AST 19 ALT 24 Alkaline Phosphatase 126 Total Protein 5.2 L Albumin 2.6 L 03/12/18 10:13 NT-Pro-B Natriuret Pep 2840 H Impressions: Chest X-Ray 03/12/18 00:00 IMPRESSION: Left jugular central line tip superior vena cava. No pneumothorax. 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 Status: Imported from PACS Assessment & Plan - Diagnosis (1) Sepsis Qualifiers: Sepsis type: sepsis due to unspecified organism Qualified Code(s): A41.9 - Sepsis, unspecified organism Is this a current diagnosis for this admission?: Yes Plan: Improving As evidence by hypotension, hypoxia, tachypnea, leukocytosis and slightly elevat ed lactate (1.2) Infectious source is likely PNA - patient endorses productive cough with yellow sputum. CXR rather unimpressive, only shows LLL atelectasis and RUL thickening Resuscitated with 3L IVF followed by maintenance IVF Supplemental O2 via nasal cannula Empiric antibiotics Blood cultures no growth x 48hrs Sputum cultures pending Lactate now < 1.0, BP, SPO2 and RR have all returned to normal. Leukocytosis has resolved 10.9-->8.2 (2) Acute respiratory failure with hypoxia Is this a current diagnosis for this admission?: Yes Plan: Improving Requiring 5L supplemental O2 via nasal cannula for SPO2>90% PNA vs. SIRS response to new immunotherapy vs. new CHF. CXR shows pleural thickening in RUL and LLL atelectasis Empiric antibiotic coverage for PNA. 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 1cm nodule in R basal ganglia. No cerebral edema, mass effect, midline shift or herniation. Unchanged from 01/2018 Resume dexamethasone. Keppra IV for seizure prophylaxis. Seizure precautions (4) Acute renal failure Qualifiers: Acute renal failure type: unspecified Qualified Code(s): N17.9 - Acute kidney failure, unspecified Is this a current diagnosis for this admission?: Yes Plan: Resolved No history of renal disease Likely secondary to hypotension secondary to sepsis/sirs BP now improved Initial Creatinine 2.58, now improved to <1.0 Continue daily chemistries (5) Acute encephalopathy Is this a current diagnosis for this admission?: Yes Plan: Multifactoral - hypotension, hypoxia, acute renal failure, brain lesions. Greatly improved with IVF, supplemental O2, and normalization of BP A&O x 4 but difficulty with complex questioning CT Head results listed above, no need for further imaging (6) Hypotension Qualifiers: Hypotension type: unspecified hypotension type Qualified Code(s): I95.9 - Hypotension, unspecified Is this a current diagnosis for this admission?: Yes Plan: Resolved. Secondary to SEPSIS stemming from PNA vs. SIRS response to new immunotherapy. Received IVF in ED and briefly on levophed gtt BP now within normal range without need for vasoactives/aggressive IVF resuscitation (7) Full code status Is this a current diagnosis for this admission?: Yes Plan: Sister is POA. States she wants 'everything done. Full resuscitation.' - Time Time Spent with patient: 15-24 minutes Medications reviewed and adjusted accordingly: Yes Anticipated discharge: Home - Inpatient Certification Based on my medical assessment, after consideration of the patient's comorbidities, presenting symptoms, or acuity I expect that the services needed warrant INPATIENT care.: Yes I certify that my determination is in accordance with my understanding of Medicare's requirements for reasonable and necessary INPATIENT services [42 CFR 412.3e].: Yes Medical Necessity: Need for IV Antibiotics, Risk of Complication if Not Cared For in Hospital - Plan Summary Plan Summary: CONTINUE ANTIBIOTICS. WEAN O2 TOLERATED. GET OOB TO BEDSIDE CHAIR. ECHOC[facility] RDIOGRAM TODAY.
[2018-03-14] MEDS: MORPHINE SULFATE 10 MG/ML INJ IV PRN ×2 (18:03→21:54)
--- NOTE | 2018-03-14 21:36 | XCELERA REPORT ---
[address] [address] Transthoracic Echocardiogram Report Name: EZ OZUNA Age: 62 yrs Gender: Female : 1955 Patient Status: [facility] Study Date: 03/14/2018 10:46 AM Procedure: A two-dimensional transthoracic echocardiogram with color flow and Doppler was performed. The study was technically difficult with many images being suboptimal in quality. Reason For Study: SIGNIFICANT HYPOTENSION History: SIGNIFICANT HYPOTENSION. Ordering Physician: REJI GONZALEZ Performed By: Kalpana Ramos Interpretation Summary The left ventricle is normal in size. There is normal left ventricular wall thickness. LV EF is 55% to 60% The left ventricular ejection fraction is normal. Doppler measurements suggest normal left ventricular diastolic function The left ventricular wall motion is normal. There is no thrombus. The right ventricle is not well visualized secondary to technical limitations Suspect RV enlargement The left atrial size is normal. There is no evidence of mitral valve prolapse. There is no vegetation seen on the mitral valve. There is no mitral valve stenosis. There is a trace to mild amount of mitral regurgitation There is no aortic valve stenosis There is no LVOT obstruction. There is a trace amount of aortic regurgitation There is no tricuspid stenosis. There is a mild amount of tricuspid regurgitation There is mild to moderate pulmonary hypertension by echo RVSP is 47 to 52 mm of Hg , with RA mean of 15 to 20. There is no pulmonic valvular regurgitation. There is no pulmonic valvular stenosis. The aortic root is not well visualized but is probably normal size. There is no pericardial effusion. MMode/2D Measurements & Calculations RVDd: 4.3 cm LVIDd: 5.5 cm FS: 25.9 % Ao root diam: 3.7 cm IVSd: 0.74 cm LVIDs: 4.1 cm EDV(Teich): 146.9 ml Ao root area: 10.6 cm2 LVPWd: 0.81 cm ESV(Teich): 72.8 ml EF(Teich): 50.4 % Doppler Measurements & Calculations MV E max jade: MV dec slope: Ao V2 max: AI max jade: 98.5 cm/sec 128.2 cm/sec 274.4 cm/sec MV A max jade: 732.8 cm/sec2 Ao max PG: AI max P.1 mmHg 87.1 cm/sec MV dec time: 6.6 mmHg AI dec slope: MV E/A: 1.1 0.13 sec 136.3 cm/sec2 AI P1/2t: 589.8 msec LV V1 max PG: PA V2 max: TR max jade: 4.1 mmHg 92.8 cm/sec 279.3 cm/sec LV V1 max: PA max P.4 mmHg TR max P.4 cm/sec 31.2 mmHg LV dP/dt: 1702 mmHg/s Left Ventricle The left ventricle is normal in size. There is normal left ventricular wall thickness. LV EF is 55% to 60%. The left ventricular ejection fraction is normal. Doppler measurements suggest normal left ventricular diastolic function. The left ventricular wall motion is normal. There is no thrombus. There is no ventricular septal defect visualized. Right Ventricle The right ventricle is not well visualized secondary to technical limitations. Suspect RV enlargement. Atria Right atrium not well visualized secondary to technical limitations. The left atrial size is normal. The interatrial septum is intact with no evidence for an atrial septal defect. Mitral Valve There is no evidence of mitral valve prolapse. There is no vegetation seen on the mitral valve. There is no mitral valve stenosis. There is a trace to mild amount of mitral regurgitation. Aortic Valve There is no aortic valve stenosis. There is no LVOT obstruction. There is a trace amount of aortic regurgitation. Tricuspid Valve There is no tricuspid stenosis. There is a mild amount of tricuspid regurgitation. There is mild to moderate pulmonary hypertension by echo. RVSP is 47 to 52 mm of Hg , with RA mean of 15 to 20. Pulmonic Valve There is no pulmonic valvular stenosis. There is no pulmonic valvular regurgitation. Great Vessels The aortic root is not well visualized but is probably normal size. The inferior vena cava appeared dilated and decreased < 50% with respiration (RAP 15-20 mmHg). Effusions There is no pericardial effusion. : REJI GONZALEZ > Munira Holder
[2018-03-15] MEDS: LEVALBUTEROL HCL NEB 1.25 MG/3 ML AMPUL NEB SCH ×3 (00:13→16:14)
[2018-03-15] MEDS: IPRATROPIUM BROMIDE 0.02% NEB 0.5 MG/2.5 ML AMPUL NEB SCH ×3 (00:13→16:14)
[2018-03-15] MEDS: MORPHINE SULFATE 10 MG/ML INJ IV PRN ×5 (01:45→22:37)
[2018-03-15 04:08] LABS: HEMATOCRIT 35.3 % (36.0-47.0); MEAN CORPUSCULAR HEMOGLOBIN 31.6 pg (27.0-33.4); MEAN CORPUSCULAR VOLUME 93 fl (80-97); PLATELET COUNT 483 10^3/uL (150-450); RED BLOOD COUNT 3.78 10^6/uL (3.72-5.28); RED CELL DISTRIBUTION WIDTH 17.8 % (11.5-14.0); WHITE BLOOD COUNT 6.9 10^3/uL (4.0-10.5)
[2018-03-15 04:22] LABS: ALANINE AMINOTRANSFERASE 24 U/L (9-52); ALBUMIN 2.6 g/dL (3.5-5.0); ALKALINE PHOSPHATASE 112 U/L (38-126); ASPARTATE AMINO TRANSFERASE 20 U/L (14-36); BILIRUBIN,DIRECT 0.3 mg/dL (0.0-0.4); BILIRUBIN,TOTAL 0.5 mg/dL (0.2-1.3); BLOOD UREA NITROGEN 11 mg/dL (7-20); CALCIUM 8.5 mg/dL (8.4-10.2); CARBON DIOXIDE 29 mmol/L (22-30); CHLORIDE 110 mmol/L (98-107); GLUCOSE 148 mg/dL (75-110); SODIUM 142.5 mmol/L (137-145); TOTAL PROTEIN 5.3 g/dL (6.3-8.2)
[2018-03-15 04:31] LABS: ABSOLUTE LYMPHOCYTES# (MANUAL) 0.5 10^3/uL (0.5-4.7); ABSOLUTE MONOCYTES # (MANUAL) 0.4 10^3/uL (0.1-1.4); BAND NEUTROPHILS % (MANUAL) 4 % (3-5); BASOPHILS % (MANUAL) 0 % (0-2); EOSINOPHILS % (MANUAL) 0 % (0-6); LYMPHOCYTES % (MANUAL) 4 % (13-45); METAMYELOCYTES % (MANUAL) 1 % (0); MONOCYTES % (MANUAL) 6 % (3-13); SEGMENTED NEUTROPHILS % (MAN) 82 % (42-78); TOTAL CELLS COUNTED 100
[2018-03-15 04:32] LABS: ANISOCYTOSIS 1+
[2018-03-15 04:33] LABS: PLATELET COMMENT INCREASED
[2018-03-15 04:34] LABS: ANION GAP 4 (5-19)
[2018-03-15] MEDS: FONDAPARINUX SODIUM INJ 2.5 MG/0.5 ML DISP.SYRIN SUBCUT SCH (08:09)
[2018-03-15] MEDS: MEROPENEM 500 MG in NORMAL SALINE 50 ML IV SCH (09:37)
[2018-03-15] MEDS: DEXAMETHASONE SOD PHOSPHATE INJ 4 MG/1 ML VIAL IV SCH ×2 (09:37→17:11)
[2018-03-15] MEDS: LEVETIRACETAM 500 MG/NACL-ISO 500 MG/100 ML RTUPB IV SCH (09:37)
[2018-03-15] MEDS ORDERED: GLUCAGON,HUMAN RECOMB 1 MG INJ IM PRN (14:28)
[2018-03-15] MEDS ORDERED: DEXTROSE 50%-WATER 25 GM/50 ML DISP.SYRIN IV PRN ×2 (14:28)
[2018-03-15] MEDS ORDERED: DEXTROSE 40% GEL 15 GM TUBE PO PRN ×2 (14:28)
--- NOTE | 2018-03-15 14:34 | PDOC PROGRESS REPORT ---
Subjective Progress Note for:: 03/15/18 Subjective:: The patient is a 62 y.o. F with metastatic melanoma and newly diagnosed brain mets. Who was admitted 03/12/18 approximately 1 week after receiving a new immunotherapy treatment. The patient was admitted for sepsis likely secondary to pneumonia. The patient was seen on morning rounds. She was found resting in bed comfortably on supplemental oxygen at 4 L/min. She tells me that she does wear oxygen, but is not able to specify the liters per minute (previous provider noted she is not home O2 dependent; will need to confirm with family members). She is alert and oriented to her name, place, year but not month. She continues to have difficulty with more complex questions; unclear baseline. She does follow directions with 5/5 strength to all extremities. She denies fever, chills, headache, dizziness, chest pain, palpitations, dyspnea, abdominal pain, nausea, vomiting, diarrhea. Her only complaints today is her diet (continues on a clear liquid diet) and a slight, occasional, nonproductive cough. She has no other questions or concerns; no family present at this time. No concerns per nursing. Reason For Visit: ACUTE HYPOXIC RESPIRATORY FAILURE Physical Exam Vital Signs: Temp Pulse Resp BP Pulse Ox 97.8 F 73 20 140/76 H 100 03/15/18 12:00 03/15/18 13:53 03/15/18 12:20 03/15/18 12:20 03/15/18 12:20 Intake & Output 03/14/18 03/15/18 03/16/18 06:59 06:59 06:59 Intake Total 300 300 800 Output Total 750 300 Balance -450 0 800 Weight 95.9 kg 96 kg General appearance: PRESENT: no acute distress, morbidly obese, well-developed, well-nourished Head exam: PRESENT: atraumatic, normocephalic Eye exam: PRESENT: conjunctiva pink, EOMI, PERRLA. ABSENT: scleral icterus Mouth exam: PRESENT: moist, tongue midline Neck exam: ABSENT: carotid bruit, JVD, lymphadenopathy, thyromegaly Respiratory exam: PRESENT: clear to auscultation nancy, symmetrical, unlabored, other - supplemental oxygen via NC. ABSENT: rales, rhonchi, wheezes Cardiovascular exam: PRESENT: RRR, +S1, +S2. ABSENT: diastolic murmur, rubs, systolic murmur Pulses: PRESENT: normal dorsalis pedis pul Vascular exam: PRESENT: normal capillary refill GI/Abdominal exam: PRESENT: normal bowel sounds, soft. ABSENT: distended, guarding, mass, organolmegaly, rebound, tenderness Rectal exam: PRESENT: deferred Extremities exam: PRESENT: full ROM. ABSENT: calf tenderness, clubbing, pedal edema Neurological exam: PRESENT: alert, awake, oriented to person, oriented to place, oriented to time, oriented to situation, CN II-XII grossly intact, other - forgetful, easily confused. ABSENT: motor sensory deficit Psychiatric exam: PRESENT: appropriate affect, normal mood. ABSENT: homicidal ideation, suicidal ideation Skin exam: PRESENT: dry, intact, warm. ABSENT: cyanosis, rash Results Laboratory Results: 03/15/18 03:45 03/15/18 03:45 03/15/18 03/15/18 03:45 03:45 WBC 6.9 RBC 3.78 Hgb 12.0 Hct 35.3 L MCV 93 MCH 31.6 MCHC 34.0 RDW 17.8 H Plt Count 483 H Seg Neutrophils % Not Reportable Lymphocytes % Not Reportable Monocytes % Not Reportable Eosinophils % Not Reportable Basophils % Not Reportable Absolute Neutrophils Not Reportable Absolute Lymphocytes Not Reportable Absolute Monocytes Not Reportable Absolute Eosinophils Not Reportable Absolute Basophils Not Reportable Sodium 142.5 Potassium 4.0 Chloride 110 H Carbon Dioxide 29 Anion Gap 4 L BUN 11 Creatinine 0.72 Est GFR ( Amer) > 60 Est GFR (Non-Af Amer) > 60 Glucose 148 H Calcium 8.5 Magnesium 1.7 Total Bilirubin 0.5 AST 20 ALT 24 Alkaline Phosphatase 112 Total Protein 5.3 L Albumin 2.6 L 03/12/18 03/14/18 10:13 05:40 NT-Pro-B Natriuret Pep 2840 H 4080 H Impressions: Chest X-Ray 03/12/18 00:00 IMPRESSION: Left jugular central line tip superior vena cava. No pneumothorax. 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 Assessment & Plan - Diagnosis (1) Sepsis Qualifiers: Sepsis type: sepsis due to unspecified organism Qualified Code(s): A41.9 - Sepsis, unspecified organism Is this a current diagnosis for this admission?: Yes Plan: Continues to improve; leukocytosis has resolved, patient has been afebrile greater than 48 hours, now normotensive, AK I has resolved. Patient presented with sepsis, presumed to be due to pneumonia, present on ar rival and evidenced by hypotension, hypoxia, tachypnea, leukocytosis, slightly elevated lactate, and acute kidney injury. Chest x-ray unimpressive; does demonstrate left lower lobe atelectasis and right upper lobe thickening. Blood cultures have no growth at 72 hours. The patient was admitted to the ICU and received appropriate IV fluid resuscitation. She was placed on empiric antibiotics; as the patient's blood cultures are now negative at 72 hours and she has been afebrile greater than 48, will transition to p.o. Augmentin and Cipro. Continue supplemental oxygen as needed to maintain oxygen saturations. Continue scheduled and as needed nebulizer treatments. Incentive spirometer and flutter valve to bedside. (2) Acute respiratory failure with hypoxia Is this a current diagnosis for this admission?: Yes Plan: Improved; continues to require supplemental oxygen via NC. PNA vs. SIRS response to new immunotherapy vs. new CHF. Should also consider polypharmacy. Patient's home medication list includes: Flexeril, Lyrica, Vicodin, Cymbalta, gabapentin, methadone, morphine ER and trazodone. CXR shows pleural thickening in RUL and LLL atelectasis BNP elevated to 4k; although does not appear fluid overloaded on exam Echocardiogram revealed LVEF 55-60% Cultures and antibiotics as above. Continue IV dexamethasone Holding the above mentioned medications. Morphine 2 mg IV is available every 4 hours as needed for pain. Remaining plan as above. 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 1cm nodule in R basal ganglia. No cerebral edema, mass effect, midline shift or herniation. Unchanged from 01/2018 Continue dexamethasone. Transition to p.o. Keppra for seizure prophylaxis. Seizure precautions Sister is poa and per previous provider, "everything done. Full resuscitation." Would recommend meeting with Palliative Care team for goals of care/information purposes. (4) Acute encephalopathy Is this a current diagnosis for this admission?: Yes Plan: Multifactoral - hypotension, hypoxia, acute renal failure, brain lesions, polypharmacy. Greatly improved with IVF, supplemental O2, and normalization of BP A&O x 4 but difficulty with complex questioning CT Head results listed above, no need for further imaging Management as elsewhere. Supportive care. (5) Hypertension Is this a current diagnosis for this admission?: Yes Plan: Blood pressure slightly elevated today; 140/76. We will resume her home dose carvedilol 3.125 mg twice daily. Continue holding lisinopril and amiodarone. ProBNP trending up; weight stable, no evidence of fluid overload. We will resume low-dose furosemide. (6) Hypotension Qualifiers: Hypotension type: unspecified hypotension type Qualified Code(s): I95.9 - Hypotension, unspecified Is this a current diagnosis for this admission?: Yes Plan: Resolved. Now normotensive; in fact, slightly elevated today. Secondary to SEPSIS stemming from PNA vs. SIRS response to new immunotherapy vs polypharmacy Received IVF in ED and briefly on levophed gtt (7) Acute renal failure Qualifiers: Acute renal failure type: unspecified Qualified Code(s): N17.9 - Acute kidney failure, unspecified Is this a current diagnosis for this admission?: Yes Plan: Resolved. Related to hypotension secondary to sepsis/SIRS. Creatinine 2.58--> 0.72 Avoid nephrotoxic medications as able. Monitor I&O's. Daily chemistries. (8) Hypothyroidism Is this a current diagnosis for this admission?: Yes Plan: Will check TSH with a.m. labs. Continue home dose levothyroxine 50 mcg daily. (9) Diabetes Qualifiers: Diabetes mellitus type: type 2 Diabetes mellitus terminologist insulin use: without terminologist use Is this a current diagnosis for this admission?: Yes Plan: Hold metformin while inpatient. Accu-Cheks before meals and at bedtime with Humalog for sliding scale coverage. Hypoglycemia protocol in place. (10) Full code status Is this a current diagnosis for this admission?: Yes Plan: Sister is p.o.a and per previous provider, "everything done. Full resuscitation." Would recommend meeting with Palliative Care team for goals of care/information purposes. - Time Time Spent with patient: 25-34 minutes Medications reviewed and adjusted accordingly: Yes Anticipated discharge: SNF Within: within 72 hours - Plan Summary Plan Summary: Downgraded to telemetry floor. Obtain ST/PT/OT consultations. Discharge planning is consulted; patient reportedly lives independently which I do not feel would be a safe discharge arrangement for this patient. Should consider [facility]/SNF.
[2018-03-15] MEDS: AMOXICILLIN TR/POT CLAVULANATE 500-125 MG TAB PO SCH ×2 (17:08→23:54)
[2018-03-15] MEDS: INSULIN LISPRO 100 UNIT/ML 3 ML VIAL SUBCUT SCH ×2 (17:08→21:01)
[2018-03-15] MEDS: FUROSEMIDE 20 MG TABLET PO SCH (17:10)
[2018-03-15] MEDS: LEVETIRACETAM 500 MG TABLET PO SCH (22:33)
[2018-03-15] MEDS: CARVEDILOL 3.125 MG TABLET PO SCH (22:33)
[2018-03-15] MEDS ORDERED: AMOXICILLIN TR/POT CLAVULANATE 500-125 MG TAB ONE (23:01)
[2018-03-15] MEDS ORDERED: CIPROFLOXACIN HCL 500 MG TABLET ONE (23:02)
[2018-03-15] MEDS: CIPROFLOXACIN HCL 500 MG TABLET PO SCH (23:54)
[2018-03-16] MEDS: IPRATROPIUM BROMIDE 0.02% NEB 0.5 MG/2.5 ML AMPUL NEB SCH ×3 (01:32→16:23)
[2018-03-16] MEDS: LEVALBUTEROL HCL NEB 1.25 MG/3 ML AMPUL NEB SCH ×3 (01:32→16:23)
[2018-03-16] MEDS ORDERED: AMOXICILLIN TR/POT CLAVULANATE 500-125 MG TAB ONE (03:59)
[2018-03-16] MEDS: AMOXICILLIN TR/POT CLAVULANATE 500-125 MG TAB PO SCH ×3 (05:49→21:47)
[2018-03-16] MEDS: MORPHINE SULFATE 10 MG/ML INJ IV PRN ×2 (05:54→10:32)
[2018-03-16 07:19] LABS: HEMATOCRIT 37.4 % (36.0-47.0); HEMOGLOBIN 12.7 g/dL (12.0-15.5); MEAN CORPUSCULAR HEMOGLOBIN 32.1 pg (27.0-33.4); MEAN CORPUSCULAR HGB CONC 34.1 g/dL (32.0-36.0); MEAN CORPUSCULAR VOLUME 94 fl (80-97); PLATELET COUNT 532 10^3/uL (150-450); RED BLOOD COUNT 3.97 10^6/uL (3.72-5.28); RED CELL DISTRIBUTION WIDTH 17.9 % (11.5-14.0); WHITE BLOOD COUNT 9.6 10^3/uL (4.0-10.5)
[2018-03-16 07:38] LABS: ANION GAP 5 (5-19); BLOOD UREA NITROGEN 14 mg/dL (7-20); CARBON DIOXIDE 28 mmol/L (22-30); CHLORIDE 109 mmol/L (98-107); GLUCOSE 95 mg/dL (75-110); POTASSIUM 4.9 mmol/L (3.6-5.0); SODIUM 141.8 mmol/L (137-145)
--- NOTE | 2018-03-16 08:09 | PDOC PROGRESS REPORT ---
Subjective Progress Note for:: 03/16/18 Subjective:: Patient states that she is feeling better. She is up walking to the bathroom on her own. She is asking for a pair of pants. She still has headaches, but no other complaints this morning. Reason For Visit: ACUTE HYPOXIC RESPIRATORY FAILURE Physical Exam Vital Signs: Temp Pulse Resp BP Pulse Ox 97.6 F 63 15 149/77 H 100 03/16/18 07:37 03/16/18 07:37 03/16/18 07:37 03/16/18 07:37 03/16/18 07:37 Intake & Output 03/15/18 03/16/18 03/17/18 06:59 06:59 06:59 Intake Total 300 1498 Output Total 300 Balance 0 1498 Weight 96 kg 96 kg General appearance: PRESENT: obese Head exam: PRESENT: normocephalic Respiratory exam: PRESENT: clear to auscultation nancy, unlabored Cardiovascular exam: PRESENT: RRR GI/Abdominal exam: PRESENT: soft. ABSENT: tenderness Extremities exam: ABSENT: pedal edema Neurological exam: PRESENT: alert, awake, oriented to person, oriented to place Psychiatric exam: PRESENT: appropriate affect Skin exam: PRESENT: normal color Results Laboratory Results: 03/16/18 06:25 03/16/18 06:25 03/16/18 03/16/18 06:25 06:25 WBC 9.6 RBC 3.97 Hgb 12.7 Hct 37.4 MCV 94 MCH 32.1 MCHC 34.1 RDW 17.9 H Plt Count 532 H Sodium 141.8 Potassium 4.9 Chloride 109 H Carbon Dioxide 28 Anion Gap 5 BUN 14 Creatinine 0.72 Est GFR ( Amer) > 60 Est GFR (Non-Af Amer) > 60 Glucose 95 Calcium 9.0 03/12/18 03/14/18 10:13 05:40 NT-Pro-B Natriuret Pep 2840 H 4080 H Impressions: Chest X-Ray 03/12/18 00:00 IMPRESSION: Left jugular central line tip superior vena cava. No pneumothorax. 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 Treatment is currently on hold. She has been receiving Opdivo/Yervoy immunotherapy. (2) Acute encephalopathy Is this a current diagnosis for this admission?: Yes Plan: Now resolved. Her mental status is now back to her baseline. (3) Hypotension Qualifiers: Hypotension type: unspecified hypotension type Qualified Code(s): I95.9 - Hypotension, unspecified Is this a current diagnosis for this admission?: Yes Plan: Resolved. - Plan Summary Plan Summary: I have switched her Dexamethasone to PO. She should be on 4 mg BID for 3 days, then 2 mg po BID until she returns to see me for next cycle of chemo.
[2018-03-16] MEDS: INSULIN LISPRO 100 UNIT/ML 3 ML VIAL SUBCUT SCH ×4 (08:24→22:21)
[2018-03-16] MEDS: CARVEDILOL 3.125 MG TABLET PO SCH ×2 (10:19→21:47)
[2018-03-16] MEDS: FONDAPARINUX SODIUM INJ 2.5 MG/0.5 ML DISP.SYRIN SUBCUT SCH ×2 (10:19→10:22)
[2018-03-16] MEDS: LEVOTHYROXINE SODIUM 0.05 MG TABLET PO SCH (10:19)
[2018-03-16] MEDS: LEVETIRACETAM 500 MG TABLET PO SCH ×2 (10:20→21:48)
[2018-03-16] MEDS: FUROSEMIDE 20 MG TABLET PO SCH (10:20)
[2018-03-16] MEDS: DEXAMETHASONE 4 MG TABLET PO SCH ×2 (10:20→17:41)
[2018-03-16] MEDS: CIPROFLOXACIN HCL 500 MG TABLET PO SCH ×2 (10:55→21:48)
--- NOTE | 2018-03-16 16:32 | PDOC PROGRESS REPORT ---
Subjective Progress Note for:: 03/16/18 Subjective:: The patient is a 62 y.o. F with metastatic melanoma and newly diagnosed brain mets. Who was admitted 03/12/18 approximately 1 week after receiving a new immunotherapy treatment. The patient was admitted for sepsis likely secondary to pneumonia. The patient was seen on afternoon rounds. She was found resting in bed comfortably on supplemental oxygen at 2 L/min. She is alert and oriented to her name, place, year but not month. She continues to have difficulty with more complex questions; answers "yes" to most things. Per oncology's progress note, patient has returned to baseline (well-known to Dr. Gonsalez). She does follow directions with 5/5 strength to all extremities. She denies fever, chills, headache, dizziness, chest pain, palpitations, dyspnea, abdominal pain, nausea, vomiting, diarrhea. She has no questions or concerns; no family present at this time. Nursing reports that the patient fell today, landing on her knees. No reported injury. Patient has been impulsive and has been observed to turn her own bed alarm off. Requesting sitter. Reason For Visit: ACUTE HYPOXIC RESPIRATORY FAILURE Physical Exam Vital Signs: Temp Pulse Resp BP Pulse Ox 97.5 F 101 H 16 132/74 H 97 03/16/18 09:03 03/16/18 09:57 03/16/18 09:21 03/16/18 09:03 03/16/18 09:21 Intake & Output 03/15/18 03/16/18 03/17/18 06:59 06:59 06:59 Intake Total 300 1498 Output Total 300 Balance 0 1498 Weight 96 kg 96 kg General appearance: PRESENT: no acute distress, obese, well-developed, well- nourished Head exam: PRESENT: atraumatic, normocephalic Eye exam: PRESENT: conjunctiva pink, EOMI, PERRLA. ABSENT: scleral icterus Ear exam: PRESENT: normal external ear exam Mouth exam: PRESENT: moist, tongue midline Neck exam: ABSENT: carotid bruit, JVD, lymphadenopathy, thyromegaly Respiratory exam: PRESENT: clear to auscultation nancy, symmetrical, unlabored, ot her - Supplemental oxygen via nasal cannula. ABSENT: rales, rhonchi, wheezes Cardiovascular exam: PRESENT: RRR, +S1, +S2. ABSENT: diastolic murmur, rubs, systolic murmur Pulses: PRESENT: normal dorsalis pedis pul Vascular exam: PRESENT: normal capillary refill GI/Abdominal exam: PRESENT: normal bowel sounds, soft. ABSENT: distended, guarding, mass, organolmegaly, rebound, tenderness Rectal exam: PRESENT: deferred Extremities exam: PRESENT: full ROM. ABSENT: calf tenderness, clubbing, pedal edema Neurological exam: PRESENT: alert, awake, oriented to person, oriented to place, oriented to time, oriented to situation, CN II-XII grossly intact, other - Forgetful, easily confused. Answers simple questions appropriately. Impulsive; poor safety awareness.. ABSENT: motor sensory deficit Psychiatric exam: PRESENT: appropriate affect, normal mood. ABSENT: homicidal ideation, suicidal ideation Skin exam: PRESENT: dry, intact, warm. ABSENT: cyanosis, rash Results Laboratory Results: 03/16/18 06:25 03/16/18 06:25 03/16/18 03/16/18 03/16/18 06:25 06:25 06:25 WBC 9.6 RBC 3.97 Hgb 12.7 Hct 37.4 MCV 94 MCH 32.1 MCHC 34.1 RDW 17.9 H Plt Count 532 H Sodium 141.8 Potassium 4.9 Chloride 109 H Carbon Dioxide 28 Anion Gap 5 BUN 14 Creatinine 0.72 Est GFR ( Amer) > 60 Est GFR (Non-Af Amer) > 60 Glucose 95 Calcium 9.0 TSH 4.15 03/12/18 03/14/18 10:13 05:40 NT-Pro-B Natriuret Pep 2840 H 4080 H Impressions: Chest X-Ray 03/12/18 00:00 IMPRESSION: Left jugular central line tip superior vena cava. No pneumothorax. 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 Assessment & Plan - Diagnosis (1) Sepsis Qualifiers: Sepsis type: sepsis due to unspecified organism Qualified Code(s): A41.9 - Sepsis, unspecified organism Is this a current diagnosis for this admission?: Yes Plan: Resolved; leukocytosis has resolved, patient has been afebrile greater than 48 hours, now normotensive, AK I has resolved. Patient presented with sepsis, presumed to be due to pneumonia, present on arrival and evidenced by hypotension, hypoxia, tachypnea, leukocytosis, slightly elevated lactate, and acute kidney injury. Chest x-ray unimpressive; does demonstrate left lower lobe atelectasis and right upper lobe thickening. Blood cultures have no growth at 4 days. The patient was admitted to the ICU and received appropriate IV fluid resuscitation; downgraded to telemetry bed yesterday. Continue p.o. Augmentin and Cipro. Continue supplemental oxygen as needed to maintain oxygen saturations. Continue scheduled and as needed nebulizer treatments. Incentive spirometer and flutter valve to bedside. (2) Acute respiratory failure with hypoxia Is this a current diagnosis for this admission?: Yes Plan: Improved; continues to require supplemental oxygen via NC. PNA vs. SIRS response to new immunotherapy vs. new CHF. Should also consider polypharmacy. Patient's home medication list includes: Flexeril, Lyrica, Vicodin, Cymbalta, gabapentin, methadone, morphine ER and trazodone. CXR shows pleural thickening in RUL and LLL atelectasis BNP elevated to 4k; although does not appear fluid overloaded on exam Echocardiogram revealed LVEF 55-60% Cultures and antibiotics as above. Transition to p.o. dexamethasone per oncology. Holding the above mentioned medications. D/c IV morphine; prn oxycodone is available. Remaining plan as above. 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 1cm nodule in R basal ganglia. No cerebral edema, mass effect, midline shift or herniation. Unchanged from 01/2018 Continue dexamethasone. Continue p.o. Keppra for seizure prophylaxis. Seizure precautions Sister is poa and per previous provider, "everything done. Full resuscitation." Would recommend meeting with Palliative Care team for goals of care/information purposes. (4) Acute encephalopathy Is this a current diagnosis for this admission?: Yes Plan: Multifactoral - hypotension, hypoxia, acute renal failure, brain lesions, polypharmacy. Greatly improved with IVF, supplemental O2, and normalization of BP A&O x 4 but difficulty with complex questioning CT Head results listed above, no need for further imaging Management as elsewhere. Supportive care. (5) Hypertension Is this a current diagnosis for this admission?: Yes Plan: Blood pressure slightly elevated today; 130/70. Continue home dose carvedilol 3.125 mg twice daily. Continue holding lisinopril and amiodarone. ProBNP trending up; weight stable, no evidence of fluid overload. Continue low- dose furosemide. (6) Hypotension Qualifiers: Hypotension type: unspecified hypotension type Qualified Code(s): I95.9 - Hypotension, unspecified Is this a current diagnosis for this admission?: Yes Plan: Resolved. Now normotensive. Secondary to SEPSIS stemming from PNA vs. SIRS response to new immunotherapy vs polypharmacy Received IVF in ED and briefly on levophed gtt (7) Acute renal failure Qualifiers: Acute renal failure type: unspecified Qualified Code(s): N17.9 - Acute kidney failure, unspecified Is this a current diagnosis for this admission?: Yes Plan: Resolved. Related to hypotension secondary to sepsis/SIRS. Creatinine 2.58--> 0.72 Avoid nephrotoxic medications as able. Monitor I&O's. Daily chemistries. (8) Hypothyroidism Is this a current diagnosis for this admission?: Yes Plan: TSH 4.15 Continue home dose levothyroxine 50 mcg daily. (9) Diabetes Qualifiers: Diabetes mellitus type: type 2 Diabetes mellitus manager long term care insulin use: without manager long term care use Is this a current diagnosis for this admission?: Yes Plan: Hold metformin while inpatient. Accu-Cheks before meals and at bedtime with Humalog for sliding scale coverage. Hypoglycemia protocol in place. (10) Full code status Is this a current diagnosis for this admission?: Yes Plan: Sister is p.o.a and per previous provider, "everything done. Full resuscitation." Would recommend meeting with Palliative Care team for goals of care/information purposes. - Time Time Spent with patient: 15-24 minutes Medications reviewed and adjusted accordingly: Yes Anticipated discharge: SNF Within: when bed available
[2018-03-16] MEDS: OXYCODONE-ACETAMINOPHEN 5-325 MG TABLET PO PRN (17:41)
[2018-03-16] MEDS ORDERED: TRAZODONE HCL 50 MG TABLET PO SCH (23:00)
[2018-03-16] MEDS ORDERED: TRAZODONE HCL 50 MG TABLET PO ONE (23:20)
[2018-03-17] MEDS: LEVALBUTEROL HCL NEB 1.25 MG/3 ML AMPUL NEB SCH ×3 (00:36→16:48)
[2018-03-17] MEDS: IPRATROPIUM BROMIDE 0.02% NEB 0.5 MG/2.5 ML AMPUL NEB SCH ×3 (00:36→16:48)
[2018-03-17] MEDS: AMOXICILLIN TR/POT CLAVULANATE 500-125 MG TAB PO SCH ×3 (05:31→22:20)
--- NOTE | 2018-03-17 08:18 | PDOC PROGRESS REPORT ---
Subjective Progress Note for:: 03/17/18 Subjective:: Patient is much more alert today. Recognizes me right away. States she is ready to go home. Sister states that she has not been sleeping well. Nurses are worried that she is still a fall risk but she is trying to get up on her own all the time. Reason For Visit: ACUTE HYPOXIC RESPIRATORY FAILURE Physical Exam Vital Signs: Temp Pulse Resp BP Pulse Ox 97.7 F 91 15 126/69 H 96 03/17/18 00:00 03/17/18 07:00 03/17/18 00:36 03/17/18 00:00 03/17/18 00:36 Intake & Output 03/16/18 03/17/18 03/18/18 06:59 06:59 06:59 Intake Total 1498 600 Balance 1498 600 Weight 96 kg 94.2 kg General appearance: PRESENT: obese Head exam: PRESENT: normocephalic Respiratory exam: PRESENT: unlabored, wheezes GI/Abdominal exam: PRESENT: soft. ABSENT: tenderness Neurological exam: PRESENT: alert, awake, oriented to person, oriented to place, oriented to situation, other - Neurologic status and mentation are now back to baseline. Psychiatric exam: PRESENT: appropriate affect Skin exam: PRESENT: normal color Results Laboratory Results: 03/16/18 06:25 03/16/18 06:25 03/11/18 23:00 Blood Blood Culture - Final NO GROWTH IN 5 DAYS 03/11/18 21:05 Blood Blood Culture - Final NO GROWTH IN 5 DAYS 03/12/18 03/14/18 10:13 05:40 NT-Pro-B Natriuret Pep 2840 H 4080 H Impressions: Chest X-Ray 03/12/18 00:00 IMPRESSION: Left jugular central line tip superior vena cava. No pneumothorax. 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 She understands that she must be strong enough to consider this. We will wait until next week and see her in the office to determine if further treatment will be reasonable. I have explained to the sisters that without any treatment, or if the cancer does not respond, then she has an estimated 3-6 months life expectancy. I discussed code status again with the patient. Although she would like to continue to be aggressive to treat the cancer, she does not wish to be on life support. She requests DNR status. Her sister was present during this conversation and agrees with this decision. (2) Acute encephalopathy Is this a current diagnosis for this admission?: Yes Plan: Much improved. Will decrease the Dexamethasone tomorrow to 4 mg po Daily and continue to wean if possible. (3) Hypotension Qualifiers: Hypotension type: unspecified hypotension type Qualified Code(s): I95.9 - Hypotension, unspecified Is this a current diagnosis for this admission?: Yes (4) Insomnia Is this a current diagnosis for this admission?: Yes Plan: I will add vandana LOUISN for sleep, as she has done well with this in the past. - Plan Summary Plan Summary: OK to transfer to SNF for strength and ambulation until she is safe to go home on her own.
[2018-03-17] MEDS: INSULIN LISPRO 100 UNIT/ML 3 ML VIAL SUBCUT SCH ×4 (10:41→22:21)
[2018-03-17] MEDS: FONDAPARINUX SODIUM INJ 2.5 MG/0.5 ML DISP.SYRIN SUBCUT SCH (10:42)
[2018-03-17] MEDS: LEVOTHYROXINE SODIUM 0.05 MG TABLET PO SCH (10:43)
[2018-03-17] MEDS: DEXAMETHASONE 4 MG TABLET PO SCH ×2 (10:44→18:29)
[2018-03-17] MEDS: CARVEDILOL 3.125 MG TABLET PO SCH ×2 (10:44→22:20)
[2018-03-17] MEDS: LEVETIRACETAM 500 MG TABLET PO SCH ×2 (10:44→22:20)
[2018-03-17] MEDS: FUROSEMIDE 20 MG TABLET PO SCH (10:44)
[2018-03-17] MEDS: CIPROFLOXACIN HCL 500 MG TABLET PO SCH (10:45)
--- NOTE | 2018-03-17 17:34 | PDOC PROGRESS REPORT ---
Subjective Progress Note for:: 03/17/18 Subjective:: The patient is a 62 y.o. F with metastatic melanoma and newly diagnosed brain mets. Who was admitted 03/12/18 approximately 1 week after receiving a new immunotherapy treatment. The patient was seen on morning rounds. She was found sitting up to the edge of the bed eating her breakfast; comfortable on supplemental oxygen at 2 L/min. She is alert and oriented to her name, place, year but not month. She continues to have difficulty with more complex questions; and continues to be impulsive with poor safety awareness. Per oncology's progress note, patient has returned to baseline (well-known to Dr. Gonsalez) has now, been made a DNR, and will follow up in 1 week to determine any further treatment. She denies fever, chills, headache, dizziness, chest pain, palpitations, dyspnea, abdominal pain, nausea, vomiting, diarrhea. She has no questions or concerns; no family present at this time. No concerns per nursing. Reason For Visit: ACUTE HYPOXIC RESPIRATORY FAILURE Physical Exam Vital Signs: Temp Pulse Resp BP Pulse Ox 98.2 F 77 16 140/82 H 98 03/17/18 15:56 03/17/18 15:56 03/17/18 15:56 03/17/18 15:56 03/17/18 15:56 Intake & Output 03/16/18 03/17/18 03/18/18 06:59 06:59 06:59 Intake Total 1498 600 Balance 1498 600 Weight 96 kg 94.2 kg General appearance: PRESENT: no acute distress, obese, well-developed, well- nourished Head exam: PRESENT: atraumatic, normocephalic Eye exam: PRESENT: conjunctiva pink, EOMI, PERRLA. ABSENT: scleral icterus Ear exam: PRESENT: normal external ear exam Mouth exam: PRESENT: moist, tongue midline, other - chapped/peeling lips Teeth exam: PRESENT: poor dentation Neck exam: ABSENT: carotid bruit, JVD, lymphadenopathy, thyromegaly Respiratory exam: PRESENT: clear to auscultation nancy, symmetrical, unlabored. ABSENT: rales, rhonchi, wheezes Cardiovascular exam: PRESENT: RRR, +S1, +S2. ABSENT: diastolic murmur, rubs, systolic murmur Pulses: PRESENT: normal dorsalis pedis pul Vascular exam: PRESENT: normal capillary refill GI/Abdominal exam: PRESENT: normal bowel sounds, soft. ABSENT: distended, guarding, mass, organolmegaly, rebound, tenderness Rectal exam: PRESENT: deferred Extremities exam: PRESENT: full ROM. ABSENT: calf tenderness, clubbing, pedal edema Neurological exam: PRESENT: alert, awake, oriented to person, oriented to place, oriented to time, oriented to situation, CN II-XII grossly intact, other - Forgetful, easily confused. Answers simple questions appropriately. Impulsive; poor safety awareness. ABSENT: motor sensory deficit Psychiatric exam: PRESENT: appropriate affect, normal mood. ABSENT: homicidal ideation, suicidal ideation Skin exam: PRESENT: dry, intact, warm. ABSENT: cyanosis, rash Results Laboratory Results: 03/16/18 06:25 03/16/18 06:25 03/11/18 23:00 Blood Blood Culture - Final NO GROWTH IN 5 DAYS 03/11/18 21:05 Blood Blood Culture - Final NO GROWTH IN 5 DAYS 03/12/18 03/14/18 10:13 05:40 NT-Pro-B Natriuret Pep 2840 H 4080 H Impressions: Chest X-Ray 03/12/18 00:00 IMPRESSION: Left jugular central line tip superior vena cava. No pneumothorax. 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 Assessment & Plan - Diagnosis (1) Sepsis Qualifiers: Sepsis type: sepsis due to unspecified organism Qualified Code(s): A41.9 - Sepsis, unspecified organism Is this a current diagnosis for this admission?: Yes Plan: Resolved; leukocytosis has resolved, patient has been afebrile greater than 48 hours, now normotensive, LEO has resolved. Patient presented with sepsis, presumed to be due to pneumonia, present on arrival and evidenced by hypotension, hypoxia, tachypnea, leukocytosis, slightly elevated lactate, and acute kidney injury. Chest x-ray unimpressive; does demonstrate left lower lobe atelectasis and right upper lobe thickening. Blood cultures have no growth at 5 days. The patient was admitted to the ICU and received appropriate IV fluid resuscitat ion; downgraded to telemetry bed. Patient was transitioned from IV meropenem to p.o. Augmentin and Cipro. Remains afebrile, asymptomatic, with normal WBC. Will discontinue Cipro. Continue Augmentin Day#5/10. Continue supplemental oxygen as needed to maintain oxygen saturations; now weaned to room air. Continue scheduled and as needed nebulizer treatments. Incentive spirometer and flutter valve to bedside. (2) Acute respiratory failure with hypoxia Is this a current diagnosis for this admission?: Yes Plan: Resolved, now maintaining oxygen saturations on room air. PNA vs. SIRS response to new immunotherapy vs. new CHF. Should also consider polypharmacy. Patient's home medication list includes: Flexeril, Lyrica, Vicodin, Cymbalta, gabapentin, methadone, morphine ER and trazodone. CXR shows pleural thickening in RUL and LLL atelectasis BNP elevated to 4k; although does not appear fluid overloaded on exam Echocardiogram revealed LVEF 55-60% Cultures and antibiotics as above. Transition to p.o. dexamethasone per oncology. Holding the above mentioned medications with the exception of trazodone and Ambien. D/c IV morphine; prn oxycodone is available. Remaining plan as above. 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 1cm nodule in R basal ganglia. No cerebral edema, mass effect, midline shift or herniation. Unchanged from 01/2018 Continue dexamethasone. Continue p.o. Keppra for seizure prophylaxis. Seizure precautions Now DNR. (4) Acute encephalopathy Is this a current diagnosis for this admission?: Yes Plan: Resolved; now at baseline. Multifactoral - hypotension, hypoxia, acute renal failure, brain lesions, polypharmacy. CT Head results listed above, no need for further imaging Management as elsewhere. Supportive care. (5) Hypertension Is this a current diagnosis for this admission?: Yes Plan: Acceptable BP today. Continue home dose carvedilol 3.125 mg twice daily. Continue holding lisinopril and amiodarone. ProBNP trending up; weight stable, no evidence of fluid overload. Continue low- dose furosemide. (6) Hypotension Qualifiers: Hypotension type: unspecified hypotension type Qualified Code(s): I95.9 - Hypotension, unspecified Is this a current diagnosis for this admission?: Yes Plan: Resolved. Now normotensive. Secondary to SEPSIS stemming from PNA vs. SIRS response to new immunotherapy vs polypharmacy Received IVF in ED and briefly on levophed gtt (7) Acute renal failure Qualifiers: Acute renal failure type: unspecified Qualified Code(s): N17.9 - Acute kidney failure, unspecified Is this a current diagnosis for this admission?: Yes Plan: Resolved. Related to hypotension secondary to sepsis/SIRS. Creatinine 2.58--> 0.72 Avoid nephrotoxic medications as able. Monitor I&O's. (8) Hypothyroidism Is this a current diagnosis for this admission?: Yes Plan: TSH 4.15 Continue home dose levothyroxine 50 mcg daily. (9) Diabetes Qualifiers: Diabetes mellitus type: type 2 Diabetes mellitus correction insulin use: without correction use Is this a current diagnosis for this admission?: Yes Plan: Hold metformin while inpatient. Accu-Cheks before meals and at bedtime with Humalog for sliding scale coverage. Hypoglycemia protocol in place. - Time Time Spent with patient: Less than 15 minutes Medications reviewed and adjusted accordingly: Yes Anticipated discharge: SNF Within: when bed available
[2018-03-17] MEDS: NYSTATIN/DEXAMETH/DIPHEN SUSP 120 ML PO SCH (18:28)
[2018-03-17] MEDS: OXYCODONE-ACETAMINOPHEN 5-325 MG TABLET PO PRN (18:38)
[2018-03-17] MEDS: TRAZODONE HCL 50 MG TABLET PO SCH (22:20)
[2018-03-18] MEDS: IPRATROPIUM BROMIDE 0.02% NEB 0.5 MG/2.5 ML AMPUL NEB SCH ×3 (00:16→21:01)
[2018-03-18] MEDS: LEVALBUTEROL HCL NEB 1.25 MG/3 ML AMPUL NEB SCH ×3 (00:16→21:01)
[2018-03-18] MEDS: NYSTATIN/DEXAMETH/DIPHEN SUSP 120 ML PO SCH ×4 (00:33→17:40)
[2018-03-18] MEDS: ZOLPIDEM TARTRATE 5 MG TABLET PO PRN ×2 (01:28→21:50)
[2018-03-18] MEDS: AMOXICILLIN TR/POT CLAVULANATE 500-125 MG TAB PO SCH ×3 (05:48→21:49)
[2018-03-18] MEDS: OXYCODONE-ACETAMINOPHEN 5-325 MG TABLET PO PRN ×2 (08:34→19:34)
[2018-03-18] MEDS: FONDAPARINUX SODIUM INJ 2.5 MG/0.5 ML DISP.SYRIN SUBCUT SCH (08:34)
[2018-03-18] MEDS: INSULIN LISPRO 100 UNIT/ML 3 ML VIAL SUBCUT SCH ×4 (08:34→21:48)
[2018-03-18] MEDS: LEVOTHYROXINE SODIUM 0.05 MG TABLET PO SCH (08:34)
[2018-03-18] MEDS: FUROSEMIDE 20 MG TABLET PO SCH (10:40)
[2018-03-18] MEDS: CARVEDILOL 3.125 MG TABLET PO SCH ×2 (10:40→21:49)
[2018-03-18] MEDS: DEXAMETHASONE 4 MG TABLET PO SCH ×2 (10:40→17:40)
[2018-03-18] MEDS: LEVETIRACETAM 500 MG TABLET PO SCH ×2 (10:40→21:49)
--- NOTE | 2018-03-18 15:50 | PDOC PROGRESS REPORT ---
Subjective Progress Note for:: 03/18/18 Subjective:: The patient is a 62 y.o. F with metastatic melanoma and newly diagnosed brain mets. Who was admitted 03/12/18 approximately 1 week after receiving a new immunotherapy treatment. The patient was seen on morning rounds. She was found resting in bed comfortably on room air. She is a and O x4, though continues to be impulsive with poor safety awareness and difficulty with maintaining complex thoughts/conversations. Per oncology's progress note, patient has returned to baseline (well-known to Dr. Gonsalez) has now, been made a DNR, and will follow up in 1 week to determine any further treatment. The patient reports mild nausea today, denies abdominal pain, vomiting, diarrhea, and constipation. Otherwise she states that she feels well and is ready to go home. She denies fever, chills, headache, dizziness, chest pain, palpitations, dyspnea, abdominal pain, vomiting, diarrhea. She has no questions or concerns; no family present at this time. No concerns per nursing. Reason For Visit: ACUTE HYPOXIC RESPIRATORY FAILURE Physical Exam Vital Signs: Temp Pulse Resp BP Pulse Ox 98.5 F 83 18 130/79 H 99 03/18/18 11:29 03/18/18 14:00 03/18/18 11:29 03/18/18 11:29 03/18/18 11:29 Intake & Output 03/17/18 03/18/18 03/19/18 06:59 06:59 06:59 Intake Total 600 1020 Balance 600 1020 Weight 94.2 kg 83.7 kg General appearance: PRESENT: no acute distress, well-developed, well-nourished - Overweight Head exam: PRESENT: atraumatic, normocephalic Eye exam: PRESENT: conjunctiva pink, EOMI, PERRLA. ABSENT: scleral icterus Ear exam: PRESENT: normal external ear exam Mouth exam: PRESENT: moist, tongue midline, other - Chapped/peeling lips; improved Teeth exam: PRESENT: poor dentation Neck exam: ABSENT: carotid bruit, JVD, lymphadenopathy, thyromegaly Respiratory exam: PRESENT: clear to auscultation nancy, symmetrical, unlabored. ABSENT: rales, rhonchi, wheezes Cardiovascular exam: PRESENT: RRR, +S1, +S2. ABSENT: diastolic murmur, rubs, systolic murmur Pulses: PRESENT: normal dorsalis pedis pul Vascular exam: PRESENT: normal capillary refill GI/Abdominal exam: PRESENT: normal bowel sounds, soft. ABSENT: distended, guar ding, mass, organolmegaly, rebound, tenderness Rectal exam: PRESENT: deferred Extremities exam: PRESENT: full ROM. ABSENT: calf tenderness, clubbing, pedal edema Neurological exam: PRESENT: alert, awake, oriented to person, oriented to place, oriented to time, oriented to situation, CN II-XII grossly intact, other - Forgetful, easily confused, at baseline. Impulsive with poor safety awareness.. ABSENT: motor sensory deficit Psychiatric exam: PRESENT: appropriate affect, normal mood. ABSENT: homicidal ideation, suicidal ideation Skin exam: PRESENT: dry, intact, warm. ABSENT: cyanosis, rash Results Laboratory Results: 03/16/18 06:25 03/16/18 06:25 03/12/18 03/14/18 10:13 05:40 NT-Pro-B Natriuret Pep 2840 H 4080 H Impressions: Chest X-Ray 03/12/18 00:00 IMPRESSION: Left jugular central line tip superior vena cava. No pneumothorax. 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 Assessment & Plan - Diagnosis (1) Sepsis Qualifiers: Sepsis type: sepsis due to unspecified organism Qualified Code(s): A41.9 - Sepsis, unspecified organism Is this a current diagnosis for this admission?: Yes Plan: Resolved. Patient presented with sepsis, presumed to be due to pneumonia, present on arrival and evidenced by hypotension, hypoxia, tachypnea, leukocytosis, slightly elevated lactate, and acute kidney injury. Chest x-ray unimpressive; does demonstrate left lower lobe atelectasis and right upper lobe thickening. Blood cultures have no growth at 5 days. The patient was admitted to the ICU and received appropriate IV fluid resuscitation; downgraded to telemetry bed. Patient was transitioned from IV meropenem to p.o. Augmentin and Cipro. Cipro was discontinued on day #5. Continue Augmentin Day#6/10. Continue supplemental oxygen as needed to maintain oxygen saturations; now weaned to room air. Continue scheduled and as needed nebulizer treatments. Incentive spirometer and flutter valve to bedside. (2) Acute respiratory failure with hypoxia Is this a current diagnosis for this admission?: Yes Plan: Resolved, now maintaining oxygen saturations on room air. PNA vs. SIRS response to new immunotherapy vs. new CHF. Should also consider polypharmacy. Patient's home medication list includes: Flexeril, Lyrica, Vicodin, Cymbalta, gabapentin, methadone, morphine ER and trazodone. CXR shows pleural thickening in RUL and LLL atelectasis BNP elevated to 4k; although does not appear fluid overloaded on exam Echocardiogram revealed LVEF 55-60% Cultures and antibiotics as above. Transition to p.o. dexamethasone per oncology. Holding the above mentioned medications with the exception of trazodone and Ambien. D/c IV morphine; prn oxycodone is available. Remaining plan as above. 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 1cm nodule in R basal ganglia. No cerebral edema, mass effect, midline shift or herniation. Unchanged from 01/2018 Continue dexamethasone. Continue p.o. Keppra for seizure prophylaxis. Seizure precautions Now DNR. (4) Acute encephalopathy Is this a current diagnosis for this admission?: Yes Plan: Resolved; now at baseline. Multifactoral - hypotension, hypoxia, acute renal failure, brain lesions, polypharmacy. CT Head results listed above, no need for further imaging Management as elsewhere. Supportive care. Recommend discharge to SNF for short-term rehab; otherwise, patient could return to home with family members with 24-hour supervision for safety. If the patient discharges to home, recommend home health nursing and physical therapy. (5) Hypertension Is this a current diagnosis for this admission?: Yes Plan: Acceptable BP today. Continue home dose carvedilol 3.125 mg twice daily. Resume amiodarone today. Continue holding lisinopril. ProBNP trending up; weight stable, no evidence of fluid overload. Continue low- dose furosemide. (6) Hypotension Qualifiers: Hypotension type: unspecified hypotension type Qualified Code(s): I95.9 - Hypotension, unspecified Is this a current diagnosis for this admission?: Yes Plan: Resolved. Now normotensive. Secondary to SEPSIS stemming from PNA vs. SIRS response to new immunotherapy vs polypharmacy Received IVF in ED and briefly on levophed gtt (7) Acute renal failure Qualifiers: Acute renal failure type: unspecified Qualified Code(s): N17.9 - Acute kidney failure, unspecified Is this a current diagnosis for this admission?: Yes Plan: Resolved. Related to hypotension secondary to sepsis/SIRS. Creatinine 2.58--> 0.72 Avoid nephrotoxic medications as able. Monitor I&O's. (8) Hypothyroidism Is this a current diagnosis for this admission?: Yes Plan: TSH 4.15 Continue home dose levothyroxine 50 mcg daily. (9) Diabetes Qualifiers: Diabetes mellitus type: type 2 Diabetes mellitus prison insulin use: without prison use Is this a current diagnosis for this admission?: Yes Plan: Hold metformin while inpatient. Accu-Cheks before meals and at bedtime with Humalog for sliding scale coverage. Hypoglycemia protocol in place. - Time Time Spent with patient: Less than 15 minutes Medications reviewed and adjusted accordingly: Yes Anticipated discharge: SNF Within: when bed available - Plan Summary Plan Summary: Patient is stable for discharge; awaiting safe discharge plan. Recommend discharge to SNF for short-term rehab; otherwise, patient could return to home with family members and 24-hour supervision for safety. If the patient discharges to home, recommend home health nursing and physical therapy.
[2018-03-18] MEDS: TRAZODONE HCL 50 MG TABLET PO SCH (21:49)
[2018-03-19] MEDS: NYSTATIN/DEXAMETH/DIPHEN SUSP 120 ML PO SCH ×5 (00:07→23:17)
[2018-03-19] MEDS: OXYCODONE-ACETAMINOPHEN 5-325 MG TABLET PO PRN ×3 (06:58→21:02)
[2018-03-19] MEDS: AMOXICILLIN TR/POT CLAVULANATE 500-125 MG TAB PO SCH ×3 (07:00→21:03)
[2018-03-19] MEDS: INSULIN LISPRO 100 UNIT/ML 3 ML VIAL SUBCUT SCH ×4 (07:55→21:06)
[2018-03-19] MEDS: FONDAPARINUX SODIUM INJ 2.5 MG/0.5 ML DISP.SYRIN SUBCUT SCH (07:57)
[2018-03-19] MEDS: LEVOTHYROXINE SODIUM 0.05 MG TABLET PO SCH (07:57)
[2018-03-19] MEDS: LEVALBUTEROL HCL NEB 1.25 MG/3 ML AMPUL NEB SCH ×2 (08:45→20:09)
[2018-03-19] MEDS: IPRATROPIUM BROMIDE 0.02% NEB 0.5 MG/2.5 ML AMPUL NEB SCH ×2 (08:45→20:09)
[2018-03-19] MEDS: AMIODARONE HCL 200 MG TABLET PO SCH (09:49)
[2018-03-19] MEDS: CARVEDILOL 3.125 MG TABLET PO SCH ×2 (09:50→21:03)
[2018-03-19] MEDS: LEVETIRACETAM 500 MG TABLET PO SCH ×2 (09:50→21:03)
[2018-03-19] MEDS: DEXAMETHASONE 4 MG TABLET PO SCH ×2 (09:50→17:22)
[2018-03-19] MEDS: FUROSEMIDE 20 MG TABLET PO SCH (09:50)
--- NOTE | 2018-03-19 10:57 | PDOC PROGRESS REPORT ---
Subjective Progress Note for:: 03/19/18 Subjective:: No acute events overnight Reason For Visit: ACUTE HYPOXIC RESPIRATORY FAILURE Physical Exam Vital Signs: Temp Pulse Resp BP Pulse Ox 97.8 F 60 16 143/77 H 94 03/19/18 08:00 03/19/18 08:45 03/19/18 08:45 03/19/18 08:00 03/19/18 08:45 Intake & Output 03/18/18 03/19/18 03/20/18 06:59 06:59 06:59 Intake Total 1020 1061 Balance 1020 1061 Weight 83.7 kg 82.7 kg General appearance: PRESENT: no acute distress, well-developed, well-nourished Head exam: PRESENT: atraumatic, normocephalic Eye exam: PRESENT: conjunctiva pink, EOMI, PERRLA. ABSENT: scleral icterus Ear exam: PRESENT: normal external ear exam Mouth exam: PRESENT: moist, tongue midline Neck exam: ABSENT: carotid bruit, JVD, lymphadenopathy, thyromegaly Respiratory exam: PRESENT: clear to auscultation nancy. ABSENT: rales, rhonchi, wheezes Cardiovascular exam: PRESENT: RRR. ABSENT: diastolic murmur, rubs, systolic murmur Pulses: PRESENT: normal dorsalis pedis pul Vascular exam: PRESENT: normal capillary refill GI/Abdominal exam: PRESENT: normal bowel sounds, soft. ABSENT: distended, guar ding, mass, organolmegaly, rebound, tenderness Rectal exam: PRESENT: deferred Extremities exam: PRESENT: full ROM. ABSENT: calf tenderness, clubbing, pedal edema Neurological exam: PRESENT: alert, awake, oriented to person, oriented to place, oriented to time, oriented to situation, CN II-XII grossly intact. ABSENT: motor sensory deficit Psychiatric exam: PRESENT: appropriate affect, normal mood. ABSENT: homicidal ideation, suicidal ideation Skin exam: PRESENT: dry, intact, warm. ABSENT: cyanosis, rash Results Laboratory Results: 03/16/18 06:25 03/16/18 06:25 03/12/18 03/14/18 10:13 05:40 NT-Pro-B Natriuret Pep 2840 H 4080 H Impressions: Chest X-Ray 03/12/18 00:00 IMPRESSION: Left jugular central line tip superior vena cava. No pneumothorax. 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 At this point, until she gets stronger she certainly would not continue with treatment. She would need to be discharged from SNF/rehab before we would consider any further treatment for her. Therefore I believe she could discharge whenever they are able to give her a bed. - Time Time Spent with patient: 35 or more minutes
[2018-03-19] MEDS ORDERED: OXYCODONE-ACETAMINOPHEN 5-325 MG TABLET PO PRN ×2 (15:27→15:36)
--- NOTE | 2018-03-19 15:37 | PDOC PROGRESS REPORT ---
Subjective Progress Note for:: 03/19/18 Subjective:: The patient is a 62 y.o. F with metastatic melanoma and newly diagnosed brain mets. Who was admitted 03/12/18 approximately 1 week after receiving a new immunotherapy treatment. The patient was seen on morning rounds. She was found resting in bed comfortably on room air. She is A&Ox4; continues to be impulsive with poor safety awareness and difficulty with maintaining complex thoughts/conversations. Per oncology's progress note, patient has returned to baseline (well-known to Dr. Gonsalez). Spoke with Dr. Baptiste today; states that chemo/immunotherapy would be placed on hold until patient completes rehab at SNF. The patient reports mild nausea and a headache today, denies abdominal pain, vomiting, diarrhea, and constipation. Otherwise she states that she feels well and is ready to go home. She denies fever, chills, dizziness, chest pain, palpitations, dyspnea, abdominal pain, vomiting, diarrhea. She has no questions or concerns; no family present at this time. Called the patient's sister; no answer, left message requesting return call to discuss disposition. No concerns per nursing. Reason For Visit: ACUTE HYPOXIC RESPIRATORY FAILURE Physical Exam Vital Signs: Temp Pulse Resp BP Pulse Ox 98.1 F 75 17 105/60 92 03/19/18 12:20 03/19/18 14:00 03/19/18 12:20 03/19/18 12:20 03/19/18 12:20 Intake & Output 03/18/18 03/19/18 03/20/18 06:59 06:59 06:59 Intake Total 1020 1061 637 Balance 1020 1061 637 Weight 83.7 kg 82.7 kg General appearance: PRESENT: no acute distress, well-developed, well-nourished - Overweight Head exam: PRESENT: atraumatic, normocephalic Eye exam: PRESENT: conjunctiva pink, EOMI, PERRLA. ABSENT: scleral icterus Ear exam: PRESENT: normal external ear exam Mouth exam: PRESENT: moist, tongue midline, other - Chapped peeling lips Neck exam: ABSENT: carotid bruit, JVD, lymphadenopathy, thyromegaly Respiratory exam: PRESENT: clear to auscultation nancy, symmetrical, unlabored. ABSENT: rales, rhonchi, wheezes Cardiovascular exam: PRESENT: RRR, +S1, +S2. ABSENT: diastolic murmur, rubs, systolic murmur Pulses: PRESENT: normal dorsalis pedis pul Vascular exam: PRESENT: normal capillary refill GI/Abdominal exam: PRESENT: normal bowel sounds, soft. ABSENT: distended, guarding, mass, organolmegaly, rebound, tenderness Rectal exam: PRESENT: deferred Extremities exam: PRESENT: full ROM. ABSENT: calf tenderness, clubbing, pedal edema Neurological exam: PRESENT: alert, awake, oriented to person, oriented to place, oriented to time, oriented to situation, CN II-XII grossly intact, other - Forgetful, easily confused, at baseline. Impulsive with poor safety awareness.. ABSENT: motor sensory deficit Psychiatric exam: PRESENT: appropriate affect, normal mood. ABSENT: homicidal ideation, suicidal ideation Skin exam: PRESENT: dry, intact, warm. ABSENT: cyanosis, rash Results Laboratory Results: 03/16/18 06:25 03/16/18 06:25 03/12/18 03/14/18 10:13 05:40 NT-Pro-B Natriuret Pep 2840 H 4080 H Impressions: Chest X-Ray 03/12/18 00:00 IMPRESSION: Left jugular central line tip superior vena cava. No pneumothorax. 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 Assessment & Plan - Diagnosis (1) Sepsis Qualifiers: Sepsis type: sepsis due to unspecified organism Qualified Code(s): A41.9 - Sepsis, unspecified organism Is this a current diagnosis for this admission?: Yes Plan: Resolved. Patient presented with sepsis, presumed to be due to pneumonia, present on arrival and evidenced by hypotension, hypoxia, tachypnea, leukocytosis, slightly elevated lactate, and acute kidney injury. Chest x-ray unimpressive; does demonstrate left lower lobe atelectasis and right upper lobe thickening. Blood cultures have no growth at 5 days. The patient was admitted to the ICU and received appropriate IV fluid resus citation; downgraded to telemetry bed. Patient was transitioned from IV meropenem to p.o. Augmentin and Cipro. Cipro was discontinued on day #5. Continue Augmentin Day#7/10. Continue supplemental oxygen as needed to maintain oxygen saturations; now weaned to room air. Continue scheduled and as needed nebulizer treatments. Incentive spirometer and flutter valve to bedside. (2) Acute respiratory failure with hypoxia Is this a current diagnosis for this admission?: Yes Plan: Resolved, now maintaining oxygen saturations on room air. PNA vs. SIRS response to new immunotherapy vs. new CHF. Should also consider polypharmacy. Patient's home medication list includes: Flexeril, Lyrica, Vicodin, Cymbalta, gabapentin, methadone, morphine ER and trazodone. CXR shows pleural thickening in RUL and LLL atelectasis BNP elevated to 4k; although does not appear fluid overloaded on exam Echocardiogram revealed LVEF 55-60% Cultures and antibiotics as above. Transition to p.o. dexamethasone per oncology. Holding the above mentioned medications with the exception of trazodone and Ambien. Oxycodone is available as needed. Remaining plan as above. 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 1cm nodule in R basal ganglia. No cerebral edema, mass effect, midline shift or herniation. Unchanged from 01/2018 Continue dexamethasone. Continue p.o. Keppra for seizure prophylaxis. Seizure precautions Now DNR. (4) Acute encephalopathy Is this a current diagnosis for this admission?: Yes Plan: Resolved; now at baseline. Multifactoral - hypotension, hypoxia, acute renal failure, brain lesions, polypharmacy. CT Head results listed above, no need for further imaging Management as elsewhere. Supportive care. Recommend discharge to SNF for short-term rehab; otherwise, patient could return to home with family members with 24-hour supervision for safety. If the patient discharges to home, recommend home health nursing and physical therapy. (5) Hypertension Is this a current diagnosis for this admission?: Yes Plan: Acceptable BP today. Continue home dose carvedilol 3.125 mg twice daily. Cotninue amiodarone. Holding lisinopril. ProBNP trending up; weight stable, no evidence of fluid overload. Continue low- dose furosemide. (6) Hypotension Qualifiers: Hypotension type: unspecified hypotension type Qualified Code(s): I95.9 - Hypotension, unspecified Is this a current diagnosis for this admission?: Yes Plan: Resolved. Now normotensive. Secondary to SEPSIS stemming from PNA vs. SIRS response to new immunotherapy vs polypharmacy Received IVF in ED and briefly on levophed gtt (7) Acute renal failure Qualifiers: Acute renal failure type: unspecified Qualified Code(s): N17.9 - Acute kidney failure, unspecified Is this a current diagnosis for this admission?: Yes Plan: Resolved. Related to hypotension secondary to sepsis/SIRS. Creatinine 2.58--> 0.72 Avoid nephrotoxic medications as able. Monitor I&O's. (8) Hypothyroidism Is this a current diagnosis for this admission?: Yes Plan: TSH 4.15 Continue home dose levothyroxine 50 mcg daily. (9) Diabetes Qualifiers: Diabetes mellitus type: type 2 Diabetes mellitus ferry terminal agent insulin use: without ferry terminal agent use Is this a current diagnosis for this admission?: Yes Plan: Hold metformin while inpatient. Accu-Cheks before meals and at bedtime with Humalog for sliding scale coverage. Hypoglycemia protocol in place.
[2018-03-19] MEDS: NYSTATIN 500000 UNIT/5 ML UDCUP PO SCH ×2 (17:21→21:03)
[2018-03-19] MEDS: ACETAMINOPHEN 325 MG TABLET PO PRN (17:21)
[2018-03-19] MEDS: DULOXETINE HCL 30 MG CAPSULE.DR PO SCH (21:03)
[2018-03-19] MEDS: TRAZODONE HCL 50 MG TABLET PO SCH (21:03)
[2018-03-19] MEDS: ZOLPIDEM TARTRATE 5 MG TABLET PO PRN (23:17)
[2018-03-20] MEDS: OXYCODONE-ACETAMINOPHEN 5-325 MG TABLET PO PRN ×3 (01:55→17:37)
[2018-03-20] MEDS: AMOXICILLIN TR/POT CLAVULANATE 500-125 MG TAB PO SCH ×3 (06:21→21:13)
[2018-03-20] MEDS: NYSTATIN/DEXAMETH/DIPHEN SUSP 120 ML PO SCH ×2 (06:22→13:22)
[2018-03-20] MEDS: LEVOTHYROXINE SODIUM 0.05 MG TABLET PO SCH (08:36)
[2018-03-20] MEDS: FONDAPARINUX SODIUM INJ 2.5 MG/0.5 ML DISP.SYRIN SUBCUT SCH (08:36)
[2018-03-20] MEDS: INSULIN LISPRO 100 UNIT/ML 3 ML VIAL SUBCUT SCH ×4 (08:36→21:58)
[2018-03-20] MEDS: LEVALBUTEROL HCL NEB 1.25 MG/3 ML AMPUL NEB SCH ×2 (09:02→20:05)
[2018-03-20] MEDS: IPRATROPIUM BROMIDE 0.02% NEB 0.5 MG/2.5 ML AMPUL NEB SCH ×2 (09:02→20:05)
[2018-03-20] MEDS: LEVETIRACETAM 500 MG TABLET PO SCH ×2 (09:20→21:12)
[2018-03-20] MEDS: DULOXETINE HCL 30 MG CAPSULE.DR PO SCH ×2 (09:21→21:13)
[2018-03-20] MEDS: CARVEDILOL 3.125 MG TABLET PO SCH ×2 (09:21→21:13)
[2018-03-20] MEDS: AMIODARONE HCL 200 MG TABLET PO SCH (09:21)
[2018-03-20] MEDS: FUROSEMIDE 20 MG TABLET PO SCH (09:22)
[2018-03-20] MEDS: NYSTATIN 500000 UNIT/5 ML UDCUP PO SCH ×4 (09:23→21:13)
[2018-03-20] MEDS: DEXAMETHASONE 4 MG TABLET PO SCH ×2 (09:23→17:37)
--- NOTE | 2018-03-20 13:51 | PDOC PROGRESS REPORT ---
Subjective Progress Note for:: 03/20/18 Subjective:: The patient is a 62 y.o. F with metastatic melanoma and newly diagnosed brain mets. Who was admitted 03/12/18 approximately 1 week after receiving a new immunotherapy treatment. The patient was seen on morning rounds with her sister present. She was found resting in bed comfortably on room air. She is A&Ox4; and is very pleased to introduce me to her sister. She is much more engaged and conversational with family members present; states she feels well and has no complaints today. She does continue to be impulsive with poor safety awareness and difficulty with maintaining complex thoughts/conversations; though nursing reports much easier to anticipate and redirect. Per oncology's progress note, patient has returned to baseline (well-known to Dr. Gonsalez). Spoke with Dr. Baptiste yesterday; states that chemo/immunotherapy would be placed on hold until patient completes rehab at SNF. The patient's sister would like to move forward with a short term stay while she makes arrangements at home for her and the sister's s/o to provider 24 hour supervision. The patient states she is agreeable to this plan. She denies fever, chills, headache, dizziness, chest pain, palpitations, dyspnea, abdominal pain, nausea, vomiting, diarrhea. They have no other questions or concerns today. No concerns per nursing. Reason For Visit: ACUTE HYPOXIC RESPIRATORY FAILURE Physical Exam Vital Signs: Temp Pulse Resp BP Pulse Ox 97.8 F 72 20 100/62 95 03/20/18 11:13 03/20/18 11:13 03/20/18 11:13 03/20/18 11:13 03/20/18 11:13 Intake & Output 03/19/18 03/20/18 03/21/18 06:59 06:59 06:59 Intake Total 1061 1237 Balance 1061 1237 Weight 82.7 kg 82.7 kg General appearance: PRESENT: no acute distress, cooperative, well-developed, well-nourished - Overweight Head exam: PRESENT: atraumatic, normocephalic Eye exam: PRESENT: conjunctiva pink, EOMI, PERRLA. ABSENT: scleral icterus Ear exam: PRESENT: normal external ear exam Mouth exam: PRESENT: moist, tongue midline, other - Dry/chapped lips; improving Neck exam: ABSENT: carotid bruit, JVD, lymphadenopathy, thyromegaly Respiratory exam: PRESENT: clear to auscultation nancy, symmetrical, unlabored. ABSENT: rales, rhonchi, wheezes Cardiovascular exam: PRESENT: RRR, +S1, +S2. ABSENT: diastolic murmur, rubs, systolic murmur Pulses: PRESENT: normal dorsalis pedis pul Vascular exam: PRESENT: normal capillary refill GI/Abdominal exam: PRESENT: normal bowel sounds, soft. ABSENT: distended, guarding, mass, organolmegaly, rebound, tenderness Rectal exam: PRESENT: deferred Extremities exam: PRESENT: full ROM. ABSENT: calf tenderness, clubbing, pedal edema Neurological exam: PRESENT: alert, awake, oriented to person, oriented to place, oriented to time, oriented to situation, CN II-XII grossly intact, other - Impulsive and forgetful. ABSENT: motor sensory deficit Psychiatric exam: PRESENT: appropriate affect, normal mood. ABSENT: homicidal ideation, suicidal ideation Skin exam: PRESENT: dry, intact, warm. ABSENT: cyanosis, rash Results Laboratory Results: 03/16/18 06:25 03/16/18 06:25 03/12/18 03/14/18 10:13 05:40 NT-Pro-B Natriuret Pep 2840 H 4080 H Impressions: Chest X-Ray 03/12/18 00:00 IMPRESSION: Left jugular central line tip superior vena cava. No pneumothorax. 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 Assessment & Plan - Diagnosis (1) Sepsis Qualifiers: Sepsis type: sepsis due to unspecified organism Qualified Code(s): A41.9 - Sepsis, unspecified organism Is this a current diagnosis for this admission?: Yes Plan: Resolved. Patient presented with sepsis, presumed to be due to pneumonia, present on arrival and evidenced by hypotension, hypoxia, tachypnea, leukocytosis, slightly elevated lactate, and acute kidney injury. Chest x-ray unimpressive; does demonstrate left lower lobe atelectasis and right upper lobe thickening. Blood cultures have no growth at 5 days. The patient was admitted to the ICU and received appropriate IV fluid resuscitation; downgraded to telemetry bed. Patient was transitioned from IV meropenem to p.o. Augmentin and Cipro. Cipro was discontinued on day #5. Continue Augmentin Day#8/10. Continue supplemental oxygen as needed to maintain oxygen saturations; now weaned to room air. Continue scheduled and as needed nebulizer treatments. Incentive spirometer and flutter valve to bedside. (2) Acute respiratory failure with hypoxia Is this a current diagnosis for this admission?: Yes Plan: Resolved, now maintaining oxygen saturations on room air. PNA vs. SIRS response to new immunotherapy vs. new CHF. Should also consider polypharmacy. Patient's home medication list includes: Flexeril, Lyrica, Vicodin, Cymbalta, gabapentin, methadone, morphine ER and trazodone. CXR shows pleural thickening in RUL and LLL atelectasis BNP elevated to 4k; although does not appear fluid overloaded on exam Echocardiogram revealed LVEF 55-60% Cultures and antibiotics as above. Transition to p.o. dexamethasone per oncology. Holding the above mentioned medications with the exception of trazodone and Ambien. Oxycodone is available as needed. Remaining plan as above. 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 1cm nodule in R basal ganglia. No cerebral edema, mass effect, midline shift or herniation. Unchanged from 01/2018 Continue dexamethasone. Continue p.o. Keppra for seizure prophylaxis. Seizure precautions Now DNR. (4) Acute encephalopathy Is this a current diagnosis for this admission?: Yes Plan: Resolved; now at baseline. Multifactoral - hypotension, hypoxia, acute renal failure, brain lesions, polypharmacy. CT Head results listed above, no need for further imaging Management as elsewhere. Supportive care. Recommend discharge to SNF for short-term rehab; otherwise, patient could return to home with family members with 24-hour supervision for safety. If the patient discharges to home, recommend home health nursing and physical therapy. (5) Hypertension Is this a current diagnosis for this admission?: Yes Plan: Acceptable BP today; though slightly low, patient asymptomatic. Will monitor closely. Continue home dose carvedilol 3.125 mg twice daily. Cotninue amiodarone. Holding lisinopril. ProBNP trending up; weight stable, no evidence of fluid overload. Continue low- dose furosemide. (6) Hypotension Qualifiers: Hypotension type: unspecified hypotension type Qualified Code(s): I95.9 - Hypotension, unspecified Is this a current diagnosis for this admission?: Yes Plan: Resolved. Now normotensive. Secondary to SEPSIS stemming from PNA vs. SIRS response to new immunotherapy vs polypharmacy Received IVF in ED and briefly on levophed gtt (7) Acute renal failure Qualifiers: Acute renal failure type: unspecified Qualified Code(s): N17.9 - Acute kidney failure, unspecified Is this a current diagnosis for this admission?: Yes Plan: Resolved. Related to hypotension secondary to sepsis/SIRS. Creatinine 2.58--> 0.72 Avoid nephrotoxic medications as able. Monitor I&O's. (8) Hypothyroidism Is this a current diagnosis for this admission?: Yes Plan: TSH 4.15 Continue home dose levothyroxine 50 mcg daily. (9) Diabetes Qualifiers: Diabetes mellitus type: type 2 Diabetes mellitus nursing home insulin use: without nursing home use Is this a current diagnosis for this admission?: Yes Plan: Hold metformin while inpatient. Accu-Cheks before meals and at bedtime with Humalog for sliding scale coverage. Hypoglycemia protocol in place. - Time Time Spent with patient: 15-24 minutes Medications reviewed and adjusted accordingly: Yes Anticipated discharge: SNF - Short-term rehab Within: when bed available - Plan Summary Plan Summary: Spoke with patient's sister today. She would like for us to assist in finding short-term rehab options for her sister while she makes arrangements for 24-hour supervision at home. Spoke with oncology yesterday; agreeable with holding immunotherapy/chemotherapy while patient completes rehab. Patient is medically stable for discharge once SNF bed is available.
[2018-03-20] MEDS: ZOLPIDEM TARTRATE 5 MG TABLET PO PRN (21:13)
[2018-03-20] MEDS: TRAZODONE HCL 50 MG TABLET PO SCH (21:13)
[2018-03-21] MEDS: AMOXICILLIN TR/POT CLAVULANATE 500-125 MG TAB PO SCH ×3 (06:20→22:00)
[2018-03-21] MEDS: FONDAPARINUX SODIUM INJ 2.5 MG/0.5 ML DISP.SYRIN SUBCUT SCH (08:07)
[2018-03-21] MEDS: LEVOTHYROXINE SODIUM 0.05 MG TABLET PO SCH (08:07)
[2018-03-21] MEDS: INSULIN LISPRO 100 UNIT/ML 3 ML VIAL SUBCUT SCH ×4 (08:08→21:59)
[2018-03-21] MEDS: OXYCODONE-ACETAMINOPHEN 5-325 MG TABLET PO PRN ×3 (08:13→16:44)
[2018-03-21] MEDS: LEVALBUTEROL HCL NEB 1.25 MG/3 ML AMPUL NEB SCH (08:39)
[2018-03-21] MEDS: IPRATROPIUM BROMIDE 0.02% NEB 0.5 MG/2.5 ML AMPUL NEB SCH (08:39)
[2018-03-21] MEDS: FUROSEMIDE 20 MG TABLET PO SCH (09:23)
[2018-03-21] MEDS: DULOXETINE HCL 30 MG CAPSULE.DR PO SCH ×2 (09:23→22:00)
[2018-03-21] MEDS: CARVEDILOL 3.125 MG TABLET PO SCH ×2 (09:24→22:00)
[2018-03-21] MEDS: LEVETIRACETAM 500 MG TABLET PO SCH ×2 (09:24→22:00)
[2018-03-21] MEDS: AMIODARONE HCL 200 MG TABLET PO SCH (09:25)
[2018-03-21] MEDS: NYSTATIN 500000 UNIT/5 ML UDCUP PO SCH ×4 (09:25→22:00)
[2018-03-21] MEDS: DEXAMETHASONE 4 MG TABLET PO SCH ×2 (09:25→16:45)
--- NOTE | 2018-03-21 14:02 | PDOC PROGRESS REPORT ---
Subjective Progress Note for:: 03/21/18 Subjective:: The patient is a 62 y.o. F with metastatic melanoma and newly diagnosed brain mets. Who was admitted 03/12/18 approximately 1 week after receiving a new immunotherapy treatment. The patient was seen on morning rounds . She was found resting in bed comfortably on room air. She is A&Ox4, though continues to have difficulty with more complex questions/discussion regarding healthcare plans. Nursing reports she is less impulsive and more easily anticipated and redirected. Now at baseline mental status. She reports a slight headache today and requests her pain medication, but otherwise, states she is feeling well. She denies fever, chills, dizziness, chest pain, palpitations, dyspnea, abdominal pain, nausea, vomiting, diarrhea. She has no other questions or concerns today. No concerns per nursing. Reason For Visit: ACUTE HYPOXIC RESPIRATORY FAILURE Physical Exam Vital Signs: Temp Pulse Resp BP Pulse Ox 98.0 F 57 L 19 115/68 94 03/21/18 11:31 03/21/18 11:31 03/21/18 11:31 03/21/18 11:31 03/21/18 11:31 Intake & Output 03/20/18 03/21/18 03/22/18 06:59 06:59 06:59 Intake Total 1237 637 Balance 1237 637 Weight 82.7 kg 86.1 kg General appearance: PRESENT: no acute distress, cooperative, well-developed, well-nourished - Overweight Head exam: PRESENT: atraumatic, normocephalic Eye exam: PRESENT: conjunctiva pink, EOMI, PERRLA. ABSENT: scleral icterus Ear exam: PRESENT: normal external ear exam Mouth exam: PRESENT: moist, tongue midline, other - Dry/chapped lips; improved Neck exam: ABSENT: carotid bruit, JVD, lymphadenopathy, thyromegaly Respiratory exam: PRESENT: clear to auscultation nancy, symmetrical, unlabored. ABSENT: rales, rhonchi, wheezes Cardiovascular exam: PRESENT: RRR, +S1, +S2. ABSENT: diastolic murmur, rubs, systolic murmur Pulses: PRESENT: normal dorsalis pedis pul Vascular exam: PRESENT: normal capillary refill GI/Abdominal exam: PRESENT: normal bowel sounds, soft. ABSENT: distended, guarding, mass, organolmegaly, rebound, tenderness Rectal exam: PRESENT: deferred Extremities exam: PRESENT: full ROM. ABSENT: calf tenderness, clubbing, pedal edema Neurological exam: PRESENT: alert, awake, oriented to person, oriented to place, oriented to time, oriented to situation, CN II-XII grossly intact, other - Forgetful. ABSENT: motor sensory deficit Psychiatric exam: PRESENT: appropriate affect, normal mood. ABSENT: homicidal ideation, suicidal ideation Skin exam: PRESENT: dry, intact, warm. ABSENT: cyanosis, rash Results Laboratory Results: 03/16/18 06:25 03/16/18 06:25 03/12/18 03/14/18 10:13 05:40 NT-Pro-B Natriuret Pep 2840 H 4080 H Impressions: Chest X-Ray 03/12/18 00:00 IMPRESSION: Left jugular central line tip superior vena cava. No pneumothorax. 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 Assessment & Plan - Diagnosis (1) Sepsis Qualifiers: Sepsis type: sepsis due to unspecified organism Qualified Code(s): A41.9 - Sepsis, unspecified organism Is this a current diagnosis for this admission?: Yes Plan: Resolved. Patient presented with sepsis, presumed to be due to pneumonia, present on arrival and evidenced by hypotension, hypoxia, tachypnea, leukocytosis, slightly elevated lactate, and acute kidney injury. Chest x-ray unimpressive; does demonstrate left lower lobe atelectasis and right upper lobe thickening. Blood cultures have no growth at 5 days. The patient was admitted to the ICU and received appropriate IV fluid resuscitation; downgraded to telemetry bed. Patient was transitioned from IV meropenem to p.o. Augmentin and Cipro. Cipro was discontinued on day #5. Continue Augmentin Day#9/10. Continue supplemental oxygen as needed to maintain oxygen saturations; now wea braxton to room air. As needed nebulizer treatments. Incentive spirometer and flutter valve to bedside. (2) Acute respiratory failure with hypoxia Is this a current diagnosis for this admission?: Yes Plan: Resolved, now maintaining oxygen saturations on room air. PNA vs. SIRS response to new immunotherapy vs. new CHF. Should also consider polypharmacy. Patient's home medication list includes: Flexeril, Lyrica, Vicodin, Cymbalta, gabapentin, methadone, morphine ER and trazodone. CXR shows pleural thickening in RUL and LLL atelectasis BNP elevated to 4k; although does not appear fluid overloaded on exam Echocardiogram revealed LVEF 55-60% Cultures and antibiotics as above. Transition to p.o. dexamethasone per oncology. Holding the above mentioned medications with the exception of lower dose cymbal ta, and home dose trazodone and Ambien. Oxycodone is available as needed. Remaining plan as above. 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 1cm nodule in R basal ganglia. No cerebral edema, mass effect, midline shift or herniation. Unchanged from 01/2018 Continue dexamethasone. Continue p.o. Keppra for seizure prophylaxis. Oxycodone as needed for pain; well controlled at present. Continue holding methadone, morphine, Lyrica. Seizure precautions Now DNR. (4) Acute encephalopathy Is this a current diagnosis for this admission?: Yes Plan: Resolved; now at baseline. Multifactoral - hypotension, hypoxia, acute renal failure, brain lesions, polypharmacy. CT Head results listed above, no need for further imaging Management as elsewhere. Supportive care. Recommend discharge to SNF for short-term rehab; otherwise, patient could return to home with family members with 24-hour supervision for safety. If the patient discharges to home, recommend home health nursing and physical therapy. (5) Hypertension Is this a current diagnosis for this admission?: Yes Plan: Acceptable BP today; though slightly low, patient asymptomatic. Will monitor closely. Continue home dose carvedilol 3.125 mg twice daily. Cotninue amiodarone. Holding lisinopril. Continue low-dose furosemide. (6) Hypotension Qualifiers: Hypotension type: unspecified hypotension type Qualified Code(s): I95.9 - Hypotension, unspecified Is this a current diagnosis for this admission?: Yes Plan: Resolved. Now normotensive. Secondary to SEPSIS stemming from PNA vs. SIRS response to new immunotherapy vs polypharmacy Received IVF in ED and briefly on levophed gtt Hypertensive medications as above. (7) Acute renal failure Qualifiers: Acute renal failure type: unspecified Qualified Code(s): N17.9 - Acute kidney failure, unspecified Is this a current diagnosis for this admission?: Yes Plan: Resolved. Related to hypotension secondary to sepsis/SIRS. Creatinine 2.58--> 0.72 Avoid nephrotoxic medications as able. Monitor I&O's. (8) Hypothyroidism Is this a current diagnosis for this admission?: Yes Plan: TSH 4.15 Continue home dose levothyroxine 50 mcg daily. (9) Diabetes Qualifiers: Diabetes mellitus type: type 2 Diabetes mellitus terminal make up operator insulin use: without senior living use Is this a current diagnosis for this admission?: Yes Plan: Hold metformin while inpatient. Accu-Cheks before meals and at bedtime with Humalog for sliding scale coverage. Hypoglycemia protocol in place. - Time Time Spent with patient: Less than 15 minutes Anticipated discharge: SNF - Short term rehab vs home with supervision and home health nursing. Within: when bed available
[2018-03-21] MEDS ORDERED: KETOROLAC TROMETHAMINE INJ/PF 30 MG/1 ML SDV IV ONE (18:00)
[2018-03-21] MEDS: TRAZODONE HCL 50 MG TABLET PO SCH (22:00)
[2018-03-21] MEDS: ZOLPIDEM TARTRATE 5 MG TABLET PO PRN (22:01)
[2018-03-22] MEDS: AMOXICILLIN TR/POT CLAVULANATE 500-125 MG TAB PO SCH (05:43)
[2018-03-22] MEDS: ACETAMINOPHEN 325 MG TABLET PO PRN (09:21)
[2018-03-22] MEDS: OXYCODONE-ACETAMINOPHEN 5-325 MG TABLET PO PRN (09:21)
[2018-03-22] MEDS: LEVOTHYROXINE SODIUM 0.05 MG TABLET PO SCH (09:21)
[2018-03-22] MEDS: LEVETIRACETAM 500 MG TABLET PO SCH ×2 (09:22→21:51)
[2018-03-22] MEDS: CARVEDILOL 3.125 MG TABLET PO SCH ×2 (09:22→21:51)
[2018-03-22] MEDS: DULOXETINE HCL 30 MG CAPSULE.DR PO SCH ×2 (09:22→21:51)
[2018-03-22] MEDS: FUROSEMIDE 20 MG TABLET PO SCH (09:22)
[2018-03-22] MEDS: INSULIN LISPRO 100 UNIT/ML 3 ML VIAL SUBCUT SCH ×4 (09:23→21:51)
[2018-03-22] MEDS: FONDAPARINUX SODIUM INJ 2.5 MG/0.5 ML DISP.SYRIN SUBCUT SCH (09:23)
[2018-03-22] MEDS: NYSTATIN 500000 UNIT/5 ML UDCUP PO SCH ×4 (09:23→21:51)
[2018-03-22] MEDS: DEXAMETHASONE 4 MG TABLET PO SCH ×2 (09:23→17:10)
[2018-03-22] MEDS: AMIODARONE HCL 200 MG TABLET PO SCH (09:24)
[2018-03-22] MEDS: MORPHINE SULFATE SR 15 MG TABLET PO PRN (17:09)
--- NOTE | 2018-03-22 21:43 | PDOC PROGRESS REPORT ---
Subjective Progress Note for:: 03/22/18 Subjective:: The patient is a 62 y.o. F with metastatic melanoma and newly diagnosed brain mets. She was admitted 03/12/18 approximately 1 week after receiving a new immunotherapy treatment for acute hypoxic respiratory failure. The patient was seen this morning on rounds. She is resting comfortably in bed on supplemental oxygen. The patient states that her pain is not well controlled, endorses persistent pain in her back. Will discontinue current orders for percocet and initiate PO morphine, which the patient takes at home for pain management. In order to avoid over-sedation, will restart Morphine at half her normal dosage. Reason For Visit: ACUTE HYPOXIC RESPIRATORY FAILURE Physical Exam Vital Signs: Temp Pulse Resp BP Pulse Ox 97.4 F 66 18 114/69 94 03/22/18 19:19 03/22/18 19:19 03/22/18 19:19 03/22/18 19:19 03/22/18 19:19 Intake & Output 03/21/18 03/22/18 03/23/18 06:59 06:59 06:59 Intake Total 637 624 300 Output Total 1275 Balance 637 -651 300 Weight 86.1 kg 91.2 kg General appearance: PRESENT: obese Eye exam: PRESENT: conjunctiva pink, PERRLA Mouth exam: PRESENT: tongue midline, other - lip ulcerations Teeth exam: PRESENT: poor dentation Neck exam: PRESENT: full ROM Respiratory exam: PRESENT: clear to auscultation nancy, symmetrical, unlabored Cardiovascular exam: PRESENT: +S1, +S2 Pulses: PRESENT: normal radial pulses, normal dorsalis pedis pul Vascular exam: PRESENT: normal capillary refill GI/Abdominal exam: PRESENT: soft. ABSENT: distended, tenderness Rectal exam: PRESENT: deferred Extremities exam: PRESENT: full ROM Musculoskeletal exam: PRESENT: ambulatory, full ROM Neurological exam: PRESENT: alert, awake, oriented to person, oriented to place, oriented to time, oriented to situation Psychiatric exam: PRESENT: appropriate affect Results Laboratory Results: 03/16/18 06:25 03/16/18 06:25 03/12/18 03/14/18 10:13 05:40 NT-Pro-B Natriuret Pep 2840 H 4080 H Impressions: Chest X-Ray 03/12/18 00:00 IMPRESSION: Left jugular central line tip superior vena cava. No pneumothorax. 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 Status: Imported from PACS Assessment & Plan - Diagnosis (1) Sepsis Qualifiers: Sepsis type: sepsis due to unspecified organism Qualified Code(s): A41.9 - Sepsis, unspecified organism Is this a current diagnosis for this admission?: Yes Plan: Resolved. Patient presented with sepsis, presumed to be due to pneumonia, present on arrival and evidenced by hypotension, hypoxia, tachypnea, leukocytosis, slightly elevated lactate, and acute kidney injury. Chest x-ray unimpressive; does demonstrate left lower lobe atelectasis and right upper lobe thickening. Blood cultures have no growth The patient was admitted to the ICU and received appropriate IV fluid resuscitation; downgraded to telemetry bed. Patient was transitioned from IV meropenem to p.o. Augmentin and Cipro. Cipro was discontinued on day #5. Continue Augmentin Day#10/10. (2) Acute respiratory failure with hypoxia Is this a current diagnosis for this admission?: Yes Plan: Resolved, now maintaining oxygen saturations on room air. PNA vs. SIRS response to new immunotherapy vs. new CHF. Should also consider polypharmacy. Patient's home medication list includes: Flexeril, Lyrica, Vicodin, Cymbalta, gabapentin, methadone, morphine ER and trazodone. CXR shows pleural thickening in RUL and LLL atelectasis BNP elevated to 4k; although does not appear fluid overloaded on exam Echocardiogram revealed LVEF 55-60% Cultures and antibiotics as above. Transition to p.o. dexamethasone per oncology. Holding the above mentioned medications with the exception of lower dose cymbalta, and home dose trazodone and Ambien. Remaining plan as above. 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 1cm nodule in R basal ganglia. No cerebral edema, mass effect, midline shift or herniation. Unchanged from 01/2018 Continue dexamethasone. Continue p.o. Keppra for seizure prophylaxis. Oxycodone not working for pain control, switch to PO morphine (what patient takes at home) Continue holding methadone and Lyrica. Seizure precautions Now DNR. (4) Acute renal failure Qualifiers: Acute renal failure type: unspecified Qualified Code(s): N17.9 - Acute kidney failure, unspecified Is this a current diagnosis for this admission?: Yes Plan: Resolved. Related to hypotension secondary to sepsis/SIRS. (5) Acute encephalopathy Is this a current diagnosis for this admission?: Yes Plan: Resolved; now at baseline. Multifactoral - hypotension, hypoxia, acute renal failure, brain lesions, polypharmacy. CT Head results listed above, no need for further imaging (6) Hypertension Is this a current diagnosis for this admission?: Yes Plan: Acceptable BP today; though slightly low, patient asymptomatic. Will monitor closely. Continue home dose carvedilol 3.125 mg twice daily. Cotninue amiodarone. Holding lisinopril. Continue low-dose furosemide. (7) Hypotension Qualifiers: Hypotension type: unspecified hypotension type Qualified Code(s): I95.9 - Hypotension, unspecified Is this a current diagnosis for this admission?: Yes Plan: Resolved. Now normotensive. Secondary to SEPSIS stemming from PNA vs. SIRS response to new immunotherapy vs polypharmacy Received IVF in ED and briefly on levophed gtt Hypertensive medications as above. (8) Diabetes Qualifiers: Diabetes mellitus type: type 2 Diabetes mellitus intermodal customer service insulin use: without intermodal customer service use Diabetes mellitus complication status: without complication Qualified Code(s): E11.9 - Type 2 diabetes mellitus without complications Is this a current diagnosis for this admission?: Yes Plan: Hold metformin while inpatient. Accu-Cheks before meals and at bedtime with Humalog for sliding scale coverage. Hypoglycemia protocol in place. (9) Hypothyroidism Is this a current diagnosis for this admission?: Yes Plan: TSH 4.15 Continue home dose levothyroxine 50 mcg daily. - Time Time Spent with patient: 15-24 minutes Medications reviewed and adjusted accordingly: Yes Anticipated discharge: Home - Inpatient Certification Based on my medical assessment, after consideration of the patient's comorbidities, presenting symptoms, or acuity I expect that the services needed warrant INPATIENT care.: Yes I certify that my determination is in accordance with my understanding of Medicare's requirements for reasonable and necessary INPATIENT services [42 CFR 412.3e].: Yes Medical Necessity: Need For Continuous Telemetry Monitoring, Risk of Complication if Not Cared For in Hospital
[2018-03-22] MEDS: ZOLPIDEM TARTRATE 5 MG TABLET PO PRN (21:51)
[2018-03-22] MEDS: TRAZODONE HCL 50 MG TABLET PO SCH (21:51)
[2018-03-23] MEDS: FONDAPARINUX SODIUM INJ 2.5 MG/0.5 ML DISP.SYRIN SUBCUT SCH (07:53)
[2018-03-23] MEDS: MORPHINE SULFATE SR 15 MG TABLET PO PRN ×2 (07:53→20:15)
[2018-03-23] MEDS: LEVOTHYROXINE SODIUM 0.05 MG TABLET PO SCH (07:53)
[2018-03-23] MEDS: INSULIN LISPRO 100 UNIT/ML 3 ML VIAL SUBCUT SCH ×4 (07:53→21:09)
[2018-03-23] MEDS: DULOXETINE HCL 30 MG CAPSULE.DR PO SCH ×2 (09:50→21:09)
[2018-03-23] MEDS: FUROSEMIDE 20 MG TABLET PO SCH (09:50)
[2018-03-23] MEDS: LEVETIRACETAM 500 MG TABLET PO SCH ×2 (09:50→21:09)
[2018-03-23] MEDS: CARVEDILOL 3.125 MG TABLET PO SCH ×2 (09:50→21:09)
[2018-03-23] MEDS: DEXAMETHASONE 4 MG TABLET PO SCH ×2 (09:51→17:01)
[2018-03-23] MEDS: NYSTATIN 500000 UNIT/5 ML UDCUP PO SCH ×4 (09:51→21:09)
[2018-03-23] MEDS: AMIODARONE HCL 200 MG TABLET PO SCH (09:51)
[2018-03-23] MEDS: ACETAMINOPHEN 325 MG TABLET PO PRN (16:54)
[2018-03-23] MEDS: ZOLPIDEM TARTRATE 5 MG TABLET PO PRN (21:09)
[2018-03-23] MEDS: TRAZODONE HCL 50 MG TABLET PO SCH (21:09)
--- NOTE | 2018-03-23 21:29 | PDOC PROGRESS REPORT ---
Subjective Progress Note for:: 03/23/18 Subjective:: The patient is a 62 y.o. F with metastatic melanoma and newly diagnosed brain mets. She was admitted 03/12/18 approximately 1 week after receiving a new immunotherapy treatment for acute hypoxic respiratory failure. The patient was seen this morning on rounds. She is resting comfortably in bed on supplemental oxygen. The patient states that her pain is well controlled with the PO morphine that was started yesterday. Patient is awaiting placement at SNF pending insurance approval. No changes to medical treatment today. Reason For Visit: ACUTE HYPOXIC RESPIRATORY FAILURE Physical Exam Vital Signs: Temp Pulse Resp BP Pulse Ox 97.9 F 70 16 127/69 H 96 03/23/18 19:45 03/23/18 19:45 03/23/18 19:45 03/23/18 19:45 03/23/18 19:45 Intake & Output 03/22/18 03/23/18 03/24/18 06:59 06:59 06:59 Intake Total 624 540 360 Output Total 1275 700 Balance -651 -160 360 Weight 91.2 kg 91.2 kg General appearance: PRESENT: morbidly obese Head exam: PRESENT: atraumatic Eye exam: PRESENT: conjunctiva pink, PERRLA Mouth exam: PRESENT: moist, tongue midline Teeth exam: PRESENT: poor dentation Neck exam: PRESENT: full ROM Respiratory exam: PRESENT: clear to auscultation nancy, symmetrical, unlabored Cardiovascular exam: PRESENT: RRR Pulses: PRESENT: normal radial pulses, normal dorsalis pedis pul Vascular exam: PRESENT: normal capillary refill GI/Abdominal exam: PRESENT: soft, tenderness Rectal exam: PRESENT: deferred Extremities exam: PRESENT: full ROM Musculoskeletal exam: PRESENT: ambulatory, full ROM Neurological exam: PRESENT: alert, awake, oriented to person, oriented to place, oriented to time, oriented to situation Skin exam: PRESENT: dry, intact Results Laboratory Results: 03/16/18 06:25 03/16/18 06:25 03/12/18 03/14/18 10:13 05:40 NT-Pro-B Natriuret Pep 2840 H 4080 H Impressions: Chest X-Ray 03/12/18 00:00 IMPRESSION: Left jugular central line tip superior vena cava. No pneumothorax. 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 Status: Imported from PACS Assessment & Plan - Diagnosis (1) Sepsis Qualifiers: Sepsis type: sepsis due to unspecified organism Qualified Code(s): A41.9 - Sepsis, unspecified organism Is this a current diagnosis for this admission?: Yes Plan: Resolved. Patient presented with sepsis, presumed to be due to pneumonia, present on arrival and evidenced by hypotension, hypoxia, tachypnea, leukocytosis, slightly elevated lactate, and acute kidney injury. Chest x-ray unimpressive; does demonstrate left lower lobe atelectasis and right upper lobe thickening. Blood cultures have no growth The patient was admitted to the ICU and received appropriate IV fluid resuscitation; downgraded to telemetry bed. Patient was transitioned from IV meropenem to p.o. Augmentin and Cipro. Comple alexis antibiotic course. (2) Acute respiratory failure with hypoxia Is this a current diagnosis for this admission?: Yes Plan: Resolved, now maintaining oxygen saturations on room air. PNA vs. SIRS response to new immunotherapy vs. new CHF. Should also consider polypharmacy. Patient's home medication list includes: Flexeril, Lyrica, Vicodin, Cymbalta, gabapentin, methadone, morphine ER and trazodone. CXR shows pleural thickening in RUL and LLL atelectasis BNP elevated to 4k; although does not appear fluid overloaded on exam Echocardiogram revealed LVEF 55-60% Cultures and antibiotics as above. Transition to p.o. dexamethasone per oncology. Holding Flexeril, Lyrica, Vicodin, methadone Remaining plan as above. 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 1cm nodule in R basal ganglia. No cerebral edema, mass effect, midline shift or herniation. Unchanged from 01/2018 Continue dexamethasone. Continue p.o. Keppra for seizure prophylaxis. PO morphine for pain control Continue holding methadone and Lyrica. Seizure precautions Now DNR. (4) Acute renal failure Qualifiers: Acute renal failure type: unspecified Qualified Code(s): N17.9 - Acute kidney failure, unspecified Is this a current diagnosis for this admission?: Yes Plan: Resolved. Related to hypotension secondary to sepsis/SIRS. (5) Acute encephalopathy Is this a current diagnosis for this admission?: Yes Plan: Resolved; now at baseline. Multifactoral - hypotension, hypoxia, acute renal failure, brain lesions, polypharmacy. CT Head results listed above, no need for further imaging (6) Hypertension Is this a current diagnosis for this admission?: Yes Plan: Resolved Continue home dose carvedilol 3.125 mg twice daily. Cotninue amiodarone. Holding lisinopril. Continue low-dose furosemide. (7) Hypotension Qualifiers: Hypotension type: unspecified hypotension type Qualified Code(s): I95.9 - Hypotension, unspecified Is this a current diagnosis for this admission?: Yes Plan: Resolved. Now normotensive. Secondary to SEPSIS stemming from PNA vs. SIRS response to new immunotherapy vs polypharmacy Received IVF in ED and briefly on levophed gtt Hypertensive medications as above. (8) Diabetes Qualifiers: Diabetes mellitus type: type 2 Diabetes mellitus supervisor intermediates insulin use: without supervisor intermediates use Diabetes mellitus complication status: without complication Qualified Code(s): E11.9 - Type 2 diabetes mellitus without complications Is this a current diagnosis for this admission?: Yes Plan: Hold metformin while inpatient. Accu-Cheks before meals and at bedtime with Humalog for sliding scale coverage. Hypoglycemia protocol in place. (9) Hypothyroidism Is this a current diagnosis for this admission?: Yes Plan: TSH 4.15 Continue home dose levothyroxine 50 mcg daily. - Time Time Spent with patient: 15-24 minutes Medications reviewed and adjusted accordingly: Yes Anticipated discharge: SNF Within: Other - pending insurance approval - Inpatient Certification Based on my medical assessment, after consideration of the patient's comorbidities, presenting symptoms, or acuity I expect that the services needed warrant INPATIENT care.: Yes I certify that my determination is in accordance with my understanding of Medicare's requirements for reasonable and necessary INPATIENT services [42 CFR 412.3e].: Yes Medical Necessity: Risk of Complication if Not Cared For in Hospital
[2018-03-24] MEDS: MORPHINE SULFATE SR 15 MG TABLET PO PRN ×2 (08:17→20:43)
[2018-03-24] MEDS: FONDAPARINUX SODIUM INJ 2.5 MG/0.5 ML DISP.SYRIN SUBCUT SCH (08:17)
[2018-03-24] MEDS: LEVOTHYROXINE SODIUM 0.05 MG TABLET PO SCH (08:18)
[2018-03-24] MEDS: INSULIN LISPRO 100 UNIT/ML 3 ML VIAL SUBCUT SCH ×4 (08:18→21:55)
[2018-03-24] MEDS: DULOXETINE HCL 30 MG CAPSULE.DR PO SCH ×2 (09:36→21:53)
[2018-03-24] MEDS: DEXAMETHASONE 4 MG TABLET PO SCH ×2 (09:36→17:46)
[2018-03-24] MEDS: CARVEDILOL 3.125 MG TABLET PO SCH ×2 (09:36→21:52)
[2018-03-24] MEDS: LEVETIRACETAM 500 MG TABLET PO SCH ×2 (09:36→21:54)
[2018-03-24] MEDS: NYSTATIN 500000 UNIT/5 ML UDCUP PO SCH ×4 (09:36→21:59)
[2018-03-24] MEDS: AMIODARONE HCL 200 MG TABLET PO SCH (09:36)
[2018-03-24] MEDS: FUROSEMIDE 20 MG TABLET PO SCH (09:37)
[2018-03-24] MEDS: ACETAMINOPHEN 325 MG TABLET PO PRN ×2 (16:35→20:41)
[2018-03-24] MEDS: ZOLPIDEM TARTRATE 5 MG TABLET PO PRN (20:43)
--- NOTE | 2018-03-24 21:34 | PDOC PROGRESS REPORT ---
Subjective Progress Note for:: 03/24/18 Subjective:: The patient is a 62 y.o. F with metastatic melanoma and newly diagnosed brain mets. She was admitted 03/12/18 approximately 1 week after receiving a new immunotherapy treatment for acute hypoxic respiratory failure. The patient was seen this morning on rounds. She is resting comfortably in bed on supplemental oxygen. The patient states that her pain is well controlled with the PO morphine. Patient is awaiting placement at SNF pending insurance approval. No changes to medical treatment today. There is no change to her medical treatment. Reason For Visit: ACUTE HYPOXIC RESPIRATORY FAILURE Physical Exam Vital Signs: Temp Pulse Resp BP Pulse Ox 98.2 F 71 16 111/59 L 94 03/24/18 19:27 03/24/18 19:27 03/24/18 19:27 03/24/18 19:27 03/24/18 19:27 Intake & Output 03/23/18 03/24/18 03/25/18 06:59 06:59 06:59 Intake Total 540 600 473 Output Total 700 Balance -160 600 473 Weight 91.2 kg 91.2 kg General appearance: PRESENT: obese Eye exam: PRESENT: conjunctiva pink, PERRLA Mouth exam: PRESENT: moist, tongue midline, other - dry, cracked lips - oral mucosa is pink and moist Neck exam: PRESENT: full ROM Respiratory exam: PRESENT: clear to auscultation nancy, symmetrical, unlabored - on nasal cannula Cardiovascular exam: PRESENT: RRR Pulses: PRESENT: normal radial pulses, normal dorsalis pedis pul Vascular exam: PRESENT: normal capillary refill GI/Abdominal exam: PRESENT: soft. ABSENT: distended, tenderness Rectal exam: PRESENT: deferred Extremities exam: PRESENT: full ROM. ABSENT: pedal edema Musculoskeletal exam: PRESENT: ambulatory, full ROM, normal inspection Neurological exam: PRESENT: alert, awake, oriented to person, oriented to place, oriented to time, oriented to situation Psychiatric exam: PRESENT: appropriate affect Skin exam: PRESENT: dry, intact Results Laboratory Results: 03/16/18 06:25 03/16/18 06:25 03/12/18 03/14/18 10:13 05:40 NT-Pro-B Natriuret Pep 2840 H 4080 H Impressions: Chest X-Ray 03/12/18 00:00 IMPRESSION: Left jugular central line tip superior vena cava. No pneumothorax. 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 Status: Imported from PACS Assessment & Plan - Diagnosis (1) Sepsis Qualifiers: Sepsis type: sepsis due to unspecified organism Qualified Code(s): A41.9 - Sepsis, unspecified organism Is this a current diagnosis for this admission?: Yes Plan: Resolved. Patient presented with sepsis, presumed to be due to pneumonia, present on arrival and evidenced by hypotension, hypoxia, tachypnea, leukocytosis, slightly elevated lactate, and acute kidney injury. Chest x-ray unimpressive; does demonstrate left lower lobe atelectasis and right upper lobe thickening. Blood cultures have no growth The patient was admitted to the ICU and received appropriate IV fluid resuscitation; downgraded to telemetry bed. Patient was transitioned from IV meropenem to p.o. Augmentin and Cipro. Completed antibiotic course. (2) Acute respiratory failure with hypoxia Is this a current diagnosis for this admission?: Yes Plan: Resolved, now maintaining oxygen saturations on room air. PNA vs. SIRS response to new immunotherapy vs. new CHF. Should also consider polypharmacy. Patient's home medication list includes: Flexeril, Lyrica, Vicodin, Cymbalta, gabapentin, methadone, morphine ER and trazodone. CXR shows pleural thickening in RUL and LLL atelectasis BNP elevated to 4k; although does not appear fluid overloaded on exam Echocardiogram revealed LVEF 55-60% Cultures and antibiotics as above. Transition to p.o. dexamethasone per oncology. Holding Flexeril, Lyrica, Vicodin, methadone Remaining plan as above. 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 1cm nodule in R basal ganglia. No cerebral edema, mass effect, midline shift or herniation. Unchanged from 01/2018 Continue dexamethasone. Continue p.o. Keppra for seizure prophylaxis. PO morphine for pain control Continue holding methadone and Lyrica. Seizure precautions Now DNR. (4) Acute renal failure Qualifiers: Acute renal failure type: unspecified Qualified Code(s): N17.9 - Acute kidney failure, unspecified Is this a current diagnosis for this admission?: Yes Plan: Resolved. Related to hypotension secondary to sepsis/SIRS. (5) Acute encephalopathy Is this a current diagnosis for this admission?: Yes Plan: Resolved; now at baseline. Multifactoral - hypotension, hypoxia, acute renal failure, brain lesions, polypharmacy. CT Head results listed above, no need for further imaging (6) Hypertension Is this a current diagnosis for this admission?: Yes Plan: Resolved Continue home dose carvedilol 3.125 mg twice daily. Cotninue amiodarone. Holding lisinopril. Continue low-dose furosemide. (7) Hypotension Qualifiers: Hypotension type: unspecified hypotension type Qualified Code(s): I95.9 - Hypotension, unspecified Is this a current diagnosis for this admission?: Yes Plan: Resolved. Now normotensive. Secondary to SEPSIS stemming from PNA vs. SIRS response to new immunotherapy vs polypharmacy Received IVF in ED and briefly on levophed gtt Hypertensive medications as above. (8) Diabetes Qualifiers: Diabetes mellitus type: type 2 Diabetes mellitus longshore equipment operator insulin use: without longshore equipment operator use Diabetes mellitus complication status: without complication Qualified Code(s): E11.9 - Type 2 diabetes mellitus without complications Is this a current diagnosis for this admission?: Yes Plan: Hold metformin while inpatient. Accu-Cheks before meals and at bedtime with Humalog for sliding scale coverage. Hypoglycemia protocol in place. (9) Hypothyroidism Is this a current diagnosis for this admission?: Yes Plan: TSH 4.15 Continue home dose levothyroxine 50 mcg daily. - Time Time Spent with patient: 15-24 minutes Medications reviewed and adjusted accordingly: Yes Anticipated discharge: Acute Rehab - Inpatient Certification Based on my medical assessment, after consideration of the patient's c omorbidities, presenting symptoms, or acuity I expect that the services needed warrant INPATIENT care.: Yes I certify that my determination is in accordance with my understanding of Medicare's requirements for reasonable and necessary INPATIENT services [42 CFR 412.3e].: Yes Medical Necessity: Risk of Complication if Not Cared For in Hospital
[2018-03-24] MEDS: TRAZODONE HCL 50 MG TABLET PO SCH (21:53)
[2018-03-25] MEDS: ACETAMINOPHEN 325 MG TABLET PO PRN ×3 (08:07→19:44)
[2018-03-25] MEDS: INSULIN LISPRO 100 UNIT/ML 3 ML VIAL SUBCUT SCH ×4 (08:08→22:08)
[2018-03-25] MEDS: LEVOTHYROXINE SODIUM 0.05 MG TABLET PO SCH (08:08)
[2018-03-25] MEDS: FONDAPARINUX SODIUM INJ 2.5 MG/0.5 ML DISP.SYRIN SUBCUT SCH (08:08)
[2018-03-25] MEDS: FUROSEMIDE 20 MG TABLET PO SCH (09:26)
[2018-03-25] MEDS: CARVEDILOL 3.125 MG TABLET PO SCH ×2 (09:26→22:16)
[2018-03-25] MEDS: AMIODARONE HCL 200 MG TABLET PO SCH (09:27)
[2018-03-25] MEDS: DULOXETINE HCL 30 MG CAPSULE.DR PO SCH ×2 (09:27→22:07)
[2018-03-25] MEDS: NYSTATIN 500000 UNIT/5 ML UDCUP PO SCH ×4 (09:27→22:18)
[2018-03-25] MEDS: MORPHINE SULFATE SR 15 MG TABLET PO PRN (09:27)
[2018-03-25] MEDS: DEXAMETHASONE 4 MG TABLET PO SCH ×2 (09:27→17:15)
[2018-03-25] MEDS: LEVETIRACETAM 500 MG TABLET PO SCH ×2 (09:27→22:08)
--- NOTE | 2018-03-25 20:34 | PDOC PROGRESS REPORT ---
Subjective Progress Note for:: 03/25/18 Subjective:: The patient is a 62 y.o. F with metastatic melanoma and newly diagnosed brain mets. She was admitted 03/12/18 approximately 1 week after receiving a new immunotherapy treatment for acute hypoxic respiratory failure. The patient was seen this morning on rounds. She is resting comfortably in bed on supplemental oxygen. The patient states that her pain is well controlled. Denies SOB. Patient is awaiting placement at SNF pending insurance approval. No changes to medical treatment today. There is no change to her medical treatment. Reason For Visit: ACUTE HYPOXIC RESPIRATORY FAILURE Physical Exam Vital Signs: Temp Pulse Resp BP Pulse Ox 97.5 F 62 15 112/74 92 03/25/18 15:36 03/25/18 15:36 03/25/18 15:36 03/25/18 15:36 03/25/18 15:36 Intake & Output 03/24/18 03/25/18 03/26/18 06:59 06:59 06:59 Intake Total 600 713 500 Balance 600 713 500 Weight 91.2 kg 91.2 kg General appearance: PRESENT: obese Eye exam: PRESENT: conjunctiva pink, PERRLA Mouth exam: PRESENT: moist, tongue midline Neck exam: PRESENT: full ROM Respiratory exam: PRESENT: clear to auscultation nancy, symmetrical, unlabored Cardiovascular exam: PRESENT: RRR Pulses: PRESENT: normal radial pulses Vascular exam: PRESENT: normal capillary refill GI/Abdominal exam: PRESENT: soft. ABSENT: distended Rectal exam: PRESENT: deferred Extremities exam: PRESENT: full ROM Musculoskeletal exam: PRESENT: ambulatory, full ROM Neurological exam: PRESENT: alert, awake, oriented to person, oriented to place, oriented to time, oriented to situation Psychiatric exam: PRESENT: appropriate affect Skin exam: PRESENT: dry, intact Results Laboratory Results: 03/16/18 06:25 03/16/18 06:25 03/12/18 03/14/18 10:13 05:40 NT-Pro-B Natriuret Pep 2840 H 4080 H Impressions: Chest X-Ray 03/12/18 00:00 IMPRESSION: Left jugular central line tip superior vena cava. No pneumothorax. 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 Status: Imported from PACS Assessment & Plan - Diagnosis (1) Sepsis Qualifiers: Sepsis type: sepsis due to unspecified organism Qualified Code(s): A41.9 - Sepsis, unspecified organism Is this a current diagnosis for this admission?: Yes Plan: Resolved. Patient presented with sepsis, presumed to be due to pneumonia, present on arrival and evidenced by hypotension, hypoxia, tachypnea, leukocytosis, slightly elevated lactate, and acute kidney injury. Chest x-ray unimpressive; does demonstrate left lower lobe atelectasis and right upper lobe thickening. Blood cultures have no growth The patient was admitted to the ICU and received appropriate IV fluid resuscitation; downgraded to telemetry bed. Patient was transitioned from IV meropenem to p.o. Augmentin and Cipro. Completed antibiotic course. (2) Acute respiratory failure with hypoxia Is this a current diagnosis for this admission?: Yes Plan: Resolved, now maintaining oxygen saturations on room air. PNA vs. SIRS response to new immunotherapy vs. new CHF. Should also consider polypharmacy. Patient's home medication list includes: Flexeril, Lyrica, Vicodin, Cymbalta, gabapentin, methadone, morphine ER and trazodone. CXR shows pleural thickening in RUL and LLL atelectasis BNP elevated to 4k; although does not appear fluid overloaded on exam Echocardiogram revealed LVEF 55-60% Cultures and antibiotics as above. Transition to p.o. dexamethasone per oncology. Holding Flexeril, Lyrica, Vicodin, methadone Remaining plan as above. 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 1cm nodule in R basal ganglia. No cerebral edema, mass effect, midline shift or herniation. Unchanged from 01/2018 Continue dexamethasone. Continue p.o. Keppra for seizure prophylaxis. PO morphine for pain control Continue holding methadone and Lyrica. Seizure precautions Now DNR. (4) Acute renal failure Qualifiers: Acute renal failure type: unspecified Qualified Code(s): N17.9 - Acute kidney failure, unspecified Is this a current diagnosis for this admission?: Yes Plan: Resolved. Related to hypotension secondary to sepsis/SIRS. (5) Acute encephalopathy Is this a current diagnosis for this admission?: Yes Plan: Resolved; now at baseline. Multifactoral - hypotension, hypoxia, acute renal failure, brain lesions, polypharmacy. CT Head results listed above, no need for further imaging (6) Hypertension Is this a current diagnosis for this admission?: Yes Plan: Resolved Continue home dose carvedilol 3.125 mg twice daily. Cotninue amiodarone. Holding lisinopril. Continue low-dose furosemide. (7) Hypotension Qualifiers: Hypotension type: unspecified hypotension type Qualified Code(s): I95.9 - Hypotension, unspecified Is this a current diagnosis for this admission?: Yes Plan: Resolved. Now normotensive. Secondary to SEPSIS stemming from PNA vs. SIRS response to new immunotherapy vs polypharmacy Received IVF in ED and briefly on levophed gtt Hypertensive medications as above. (8) Diabetes Qualifiers: Diabetes mellitus type: type 2 Diabetes mellitus retirement insulin use: without retirement use Diabetes mellitus complication status: without complication Qualified Code(s): E11.9 - Type 2 diabetes mellitus without complications Is this a current diagnosis for this admission?: Yes Plan: Hold metformin while inpatient. Accu-Cheks before meals and at bedtime with Humalog for sliding scale coverage. Hypoglycemia protocol in place. (9) Hypothyroidism Is this a current diagnosis for this admission?: Yes Plan: TSH 4.15 Continue home dose levothyroxine 50 mcg daily. - Time Time Spent with patient: 15-24 minutes Medications reviewed and adjusted accordingly: Yes Anticipated discharge: Home with Homehealth, SNF - Inpatient Certification Based on my medical assessment, after consideration of the patient's comorbidities, presenting symptoms, or acuity I expect that the services needed warrant INPATIENT care.: Yes I certify that my determination is in accordance with my understanding of Medicare's requirements for reasonable and necessary INPATIENT services [42 CFR 412.3e].: Yes Medical Necessity: Risk of Complication if Not Cared For in Hospital - Plan Summary Plan Summary: UNCLEAR IF PATIENT WILL QUALIFY FOR ACUTE REHAB OR SNF. IT IS POSSIBLE SHE MAY HAVE TO GO HOME WITH HOME HEALTH. THE PATIENT HAS REMAINED CALM FOR MANY DAYS, NOT SIGNS OF IMPULSIVENESS.
[2018-03-25] MEDS: TRAZODONE HCL 50 MG TABLET PO SCH (22:10)
[2018-03-26] MEDS: ZOLPIDEM TARTRATE 5 MG TABLET PO PRN (00:25)
[2018-03-26] MEDS: MORPHINE SULFATE SR 15 MG TABLET PO PRN (06:39)
[2018-03-26] MEDS: INSULIN LISPRO 100 UNIT/ML 3 ML VIAL SUBCUT SCH ×3 (08:16→16:38)
[2018-03-26] MEDS: FONDAPARINUX SODIUM INJ 2.5 MG/0.5 ML DISP.SYRIN SUBCUT SCH (08:17)
[2018-03-26] MEDS: LEVOTHYROXINE SODIUM 0.05 MG TABLET PO SCH (08:19)
[2018-03-26] MEDS: ACETAMINOPHEN 325 MG TABLET PO PRN (08:21)
--- NOTE | 2018-03-26 12:24 | PDOC PROGRESS REPORT ---
Subjective Progress Note for:: 03/26/18 Subjective:: Patient states that she rene wants to go home. Nurses report that there is a hold up with her insurance, and she may not be a candidate for SNF. They also report that she seems stable on her feet and she continues to try to get up and move around the room on her own. Staff is still concerns about her mental capacity to be left alone, due to safety, but otherwise, she has been very stable. Reason For Visit: ACUTE HYPOXIC RESPIRATORY FAILURE Physical Exam Vital Signs: Temp Pulse Resp BP Pulse Ox 98.1 F 70 20 112/67 95 03/26/18 11:19 03/26/18 11:19 03/26/18 11:19 03/26/18 11:19 03/26/18 11:19 Intake & Output 03/25/18 03/26/18 03/27/18 06:59 06:59 06:59 Intake Total 713 500 Balance 713 500 Weight 91.2 kg 91.9 kg General appearance: PRESENT: obese Head exam: PRESENT: normocephalic Respiratory exam: PRESENT: unlabored Neurological exam: PRESENT: alert, awake Psychiatric exam: PRESENT: appropriate affect Skin exam: PRESENT: normal color Results Laboratory Results: 03/16/18 06:25 03/16/18 06:25 03/12/18 03/14/18 10:13 05:40 NT-Pro-B Natriuret Pep 2840 H 4080 H Impressions: Chest X-Ray 03/12/18 00:00 IMPRESSION: Left jugular central line tip superior vena cava. No pneumothorax. 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 She appears to have responded clinically to the first treatment of immunotherapy. Her next dose is due in 3-4 days. (2) Acute encephalopathy Is this a current diagnosis for this admission?: Yes Plan: Much improved. (3) Hypotension Qualifiers: Hypotension type: unspecified hypotension type Qualified Code(s): I95.9 - H ypotension, unspecified Is this a current diagnosis for this admission?: Yes (4) Insomnia Is this a current diagnosis for this admission?: Yes - Plan Summary Plan Summary: Patient remains medically stable for discharge, awaiting placement to SNF, or decision to discharge home, if family believes they can provide a safe environment. Although she is physically capable of most ADLs, due to the brain mets, she may not be able to safely administer her own medications or live alone. I am hopeful that she will be able to continue her treatments for her melanoma.
[2018-03-26] MEDS: CARVEDILOL 3.125 MG TABLET PO SCH (13:17)
[2018-03-26] MEDS: LEVETIRACETAM 500 MG TABLET PO SCH (13:21)
[2018-03-26] MEDS: FUROSEMIDE 20 MG TABLET PO SCH (13:21)
[2018-03-26] MEDS: DULOXETINE HCL 30 MG CAPSULE.DR PO SCH (13:21)
[2018-03-26] MEDS: DEXAMETHASONE 4 MG TABLET PO SCH (13:23)
[2018-03-26] MEDS: AMIODARONE HCL 200 MG TABLET PO SCH (13:23)
[2018-03-26] MEDS: NYSTATIN 500000 UNIT/5 ML UDCUP PO SCH (13:23)
[2018-03-26 17:34] VITALS: BP 122/69
--- NOTE | 2018-04-06 09:31 | PDOC DISCHARGE SUMMARY ---
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 Is this a current diagnosis for this admission?: Yes (4) Acute renal failure Is this a current diagnosis for this admission?: Yes (5) Acute encephalopathy Is this a current diagnosis for this admission?: Yes (6) Hypertension Is this a current diagnosis for this admission?: Yes (7) Hypotension Is this a current diagnosis for this admission?: Yes (8) Diabetes Is this a current diagnosis for this admission?: Yes (9) Hypothyroidism Is this a current diagnosis for this admission?: Yes - Additional Information Resuscitation Status: Do Not Resuscitate Discharge Diet: As Tolerated Discharge Activity: Activity As Tolerated Prescriptions: Dexamethasone [Decadron 4 mg Tablet] 2 mg PO BID #30 tablet Levetiracetam [Keppra 500 mg Tablet] 500 mg PO Q12 #30 tablet Home Medications: Cyclobenzaprine HCl 10 mg PO TID PRN 12/02/13 Duloxetine HCl 60 mg PO DAILY 12/02/13 Folic Acid 1 mg PO DAILY 12/02/13 Furosemide [Lasix] 40 mg PO BID 12/02/13 Gabapentin 800 mg PO TID 12/02/13 Hydrocodone Bit/Acetaminophen [Hydrocodon-Acetaminophn 10-325] 1 each PO Q4H PRN 12/02/13 Levothyroxine Sodium 50 mcg PO QAM 12/02/13 Methadone HCl 5 mg PO QID 12/02/13 Pnv with Ca,No.72/Iron/FA [ Plus Multivitamin Tab] 1 each PO DAILY 12/02/13 Potassium Chloride 20 meq PO DAILY 12/02/13 Trazodone HCl [Desyrel] 100 mg PO QHS 12/02/13 Metformin HCl 500 mg PO TID #60 tablet 01/09/16 Amiodarone HCl [Cordarone 200 mg Tablet] 200 mg PO DAILY 03/12/18 Carvedilol [Coreg 3.125 mg Tablet] 3.125 mg PO Q12 03/12/18 Cyclobenzaprine HCl [Flexeril 10 mg Tablet] 10 mg PO Q8HP PRN 03/12/18 Furosemide [Lasix 40 mg Tablet] 40 mg PO BID 03/12/18 Lisinopril [Prinivil 5 mg Tablet] 2.5 mg PO DAILY 03/12/18 Magnesium Oxide [Mag-Ox 400 mg Tablet] 400 mg PO BID 03/12/18 Metformin HCl [Glucophage 500 mg Tablet] 1,000 mg PO BIDACBS 03/12/18 Morphine Sulfate [Morphine Sulfate ER] 30 mg PO Q12 03/12/18 Polyethylene Glycol 3350 [Miralax Powder 17 gm/Packet] 1 packet PO DAILY 03/12/18 Potassium Chloride [Klor-Con 10 Meq Capsule ER] 20 meq PO DAILY MDD FILLED 03/08 FOR 7 DAY SUPPLY 03/12/18 Pregabalin [Lyrica 100 mg Capsule] 100 mg PO Q8 03/12/18 Dexamethasone [Decadron 4 mg Tablet] 2 mg PO BID #30 tablet 03/26/18 Levetiracetam [Keppra 500 mg Tablet] 500 mg PO Q12 #30 tablet 03/26/18 History of Present Illness History of Present Illness: EZ OZUNA is a 62 year old female who presented to the emergency room with a 1 day history of increasing dyspnea. Her family members provided the history that she became increasingly short of breath and increasingly confused at home today following a new first time dose chemotherapeutic agent ad ministered by Dr. Gonsalez yesterday. The family noted additional signs of lethargy and somnolence accompanying her dyspnea and confusion. They indicate that she had a similar episode once in the recent past due to her congestive heart failure. They have not identified any aggravating or ameliorating factors for her dyspnea and have not tried any remedies or treatments at home. Because of the patient's general confusion and lethargy she is unable to provide meaningful input into her medical care at this time. In the emergency room patient was found to be hypotensive and mildly febrile as well as hypoxic. She was noted to have a normal lactic acid and a chest x-ray that was unremarkable. This suggested that the patient may have sepsis is most likely errant as she is most likely hypovolemic and therefore hypotensive with a resultant dyspnea and I further suspect that the fever may well be due to the recent chemotherapy agent. The patient is immunosuppressed with a long course of oral and parenteral steroids having been administered over the last month or so. She will be admitted for further evaluation and treatment with the primary goal to improve her regulatory status and hopefully thereby improve her oxygenation which should help to resolve her mental confusion. Her fever will also be treated symptomatically with acetaminophen and/or ibuprofen. She will receive suppleme ntal oxygen as required to maintain oxygenation in the 93% or greater range. Hospital Course Hospital Course: The patient is a 62 y.o. F with metastatic melanoma and newly diagnosed brain mets. She was admitted 03/12/18 approximately 1 week after receiving a new immunotherapy treatment for sepsis and acute hypoxic respiratory failure. Patient presented with sepsis, presumed to be due to pneumonia, present on arrival and evidenced by hypotension, hypoxia, tachypnea, leukocytosis, slightly elevated lactate, and acute kidney injury. PNA vs. SIRS response to new immunotherapy vs. new CHF. Initial Chest x-ray unimpressive, but did show left lower lobe atelectasis and right upper lobe thickening. The patient was admitted to the ICU and was initially placed on BIPAP. She was empirically treated with IV meropenem. BNP elevated to 4k; although did not appear fluid overloaded on exam. Echocardiogram revealed LVEF 55-60%. The patient's malignant melanoma was managed by Oncology. Head CT showed multiple subcentimeter nodules scattered throughout bilateral cerebral hemispheres. 1cm nodule in R basal ganglia. No cerebral edema, mass effect, midline shift or herniation. Unchanged from 01/2018. The patient was treated with IV dexamethasone for mass effect and keppra for seizure prophylaxis. As the patient's clinical picture improved, her IV meropenem was transitioned to Augmentin and Cipro. She completed her course of antibiotics for PNA. Keppra and dexamethasone were transitioned to PO. The patient's mental status improved and, in the days leading up to discharge, the patient was completely oriented. 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 After approximately 2 weeks in the hospital, the patient was deemed safe for discharge. She was sent home in the care of her sister with orders for home he alth services. Physical Exam Vital Signs: Temp Pulse Resp BP Pulse Ox 97.6 F 64 16 122/69 95 03/26/18 17:32 03/26/18 17:32 03/26/18 17:32 03/26/18 17:32 03/26/18 17:32 Results Laboratory Results: 03/16/18 06:25 03/16/18 06:25 03/12/18 03/14/18 10:13 05:40 NT-Pro-B Natriuret Pep 2840 H 4080 H Impressions: Chest X-Ray 03/12/18 00:00 IMPRESSION: Left jugular central line tip superior vena cava. No pneumothorax. 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 Qualifiers - * PATIENT BEING DISCHARGED WITH ANY OF THE FOLLOWING DIAGNOSIS: No Plan Discharge Plan: DISCHARGE HOME WITH HOME HEALTH Time Spent: Greater than 30 Minutes
--- NOTE | 2018-04-21 08:57 | Physician Advisory Note ---
Physician Advisor ProgressNote .: [facility], I have reviewed the medical record for this patient. Physician Advisor Statement: Asked by coding supervisor electron tube processing to review r.e. certain points in documentation. Reviewed case, called & spoke w/Dr. Tea Gonsalez for her input/impressions. Extremely complex picture, much to consider. Resp process: -This pt had no underlying lung dz or baseline need for O2. Prior CTs & CXRs & PET scan (02/20/18) showed no lung mets, no evidence of COPD or ILD. Pt came in w/"SOB & difficulty breathing" per ED nurse, who documented EMS found pt w/O2 sats in 80s on RA. -The CXRs done in this case did not show infiltrate consistent with PNA. There was "minor pleural thickening/scarring" in RUL/apex seen in both CXRs, which were also still seen on repeat CXR 04/14/18; therefore, that finding would appear less likely to be an acute/temporary issue during this adm (such as an indication of acute PNA). That only leaves mild cardiomegaly & "mild scarring or atelectasis" of Lt base/lingula mentioned during this adm that wasn't seen previously (CT's on 01/09/16, 06/02/16, & 09/20/17, and CXR 04/14/18), & this does not fully explain the severity of this pt's Acute Resp Failure. -Pt's sx included SOB, tachypnea, tachycardia, initial rhonchi/wheezing - which could be caused by PNA or by pneumonitis - and lung exams were already being documented as CTAB by 03/13, which is unusual for a case of PNA that is still requiring 5L O2 support. -DCS still states pt had "PNA vs SIRS response to new immunotx vs new CHF ...." [This leaves the question, for coding, of which of these underlying causes was the most likely, & which were ruled out - or at least less likely.] H&P does list "CHF" as a chronic dx, & pt's home meds included Coreg/ACEI/Lasix, & LVEF was 55-60%, but DCS does not state the specific type of CHF present this adm. Hypotension: -This pt came in severely hypotensive, & remained persistently & severely hypotensive (MAP 50s-60s) despite 3L IVF boluses administered by 02:15 the first night (4th L in by 06:30) , requiring Levophed gtt in ICU for about 11 hours (from 00:52 to 12Noon) to keep MAP>70. -The definition of shock = a state of organ hypoperfusion causing decreased cellular perfusion, which can lead to sequential cell , end-organ damage, multi-system organ failure, & . If pressors are required to keep a pt's systolic BP 90+ or MAP >65-70 despite adequate initial IVF (such as 2L), then by definition, shock is present. Signs/sx of shock include tachycardia, hypoxemia, lethargy/confusion/somnolence/obtundation, skin that is pale/cool/clammy/dusky, prolonged capillary refill time, oliguria, and DIC. Types of shock include septic shock, hypovolemic shock, & shock due to adverse effects of a drug or toxin. Sepsis ?: -Sepsis dx is documented as considered in H&P, but felt not to be present, with other processes stated to be more likely causes of the presenting hypotension/fever, etc. This info is repeated through the chart & included in DCS, and is not stated to be ruled out. -Starting w/ PN, sepsis was also listed as present, & as possible cause of the hypotension, & this also is stated in the DCS without indication that it was ruled out. -Therefore, it is unclear for coding whether attending, in final analysis, felt that sepsis was most likely present or not present (although in DCS she very nicely spells out the evidence for the dx, along with the evidence, quoted from H&P, for other factors causing these findings instead). Dr. Gonsalez's input by phone on 04/20/18: -The new immunotherapy given to patient the week before this admission was a combination of Opdivo & Yervoy. -Dr. Gonsalez states this combination could definitely have produced (1) an acute pneumonitis/severe Acute Respiratory Failure picture such as seen in this case, & (2) a severe hypotensive response "much like a severe septic shock", and (3) a general "immune reaction" including fevers, edema, leukocytosis & thrombocytosis such as was seen in this case. When asked whether she felt this patient had shock during this adm, or whether that dx was ruled out, she said she felt the pt did have shock this adm. -She also stated that the pt's brain mets and the acute processes going on with them s/p this immuno-tx also could have produced severe hypotension. -It was her impression that sepsis & PNA were also possible (& therefore, of course tx'd-for), though in retrospect were less likely the cause of this pt's presentation than an acute adverse reaction to the immunotherapy above was. -The intermittent muscle jerking noted she said was not typical for this immunotherapy. The patient did have underlying sz d/o, & had gone 24 hrs without her Keppra just prior to admission, so she suspected that breakthrough seizure activity may have been the cause of this finding. Attending, please document clarifications of the following, so this chart can be accurately coded. 1. In your opinion, was the pt's Acute Respiratory Failure MOST LIKELY due to: A. "acute pneumonitis due to Opdivo & Yervoy", or B. "PNA, suspect gram-__ type, evidenced by , & likely having neg CXRs because ", or C. "sepsis"/"septic shock", or D. "hypotension" (explain how hypotension e. another process (specify) 2. In your opinion, was the pt's severe hypotension that required pressor support MOST LIKELY due to: A. "drug-induced shock due to Opdivo & Yervoy; sepsis was considered [& tx'd-for] but less likely [or ruled out]", or B. ""septic shock due to PNA", or C. "sepsis due to PNA; shock was ruled out", or D. "adverse effect/SIRS due to Opdivo & Yervoy; shock & sepsis were considered/tx'd-for but ruled out/less likely", or E. "brain mets [causing neurogenic shock? without shock?]", or F. "hypovolemia" [or "hypovolemic shock"?], or G. another process (specify) 3. In your opinion, was pt's acute encephalopathy MOST LIKELY: A. "toxic encephalopathy due to Opdivo & Yervoy", or b. "Metabolic encephalopathy due to Ac Resp Failure [or sepsis, or brain mets, or ...?] C. another type (specify) 4. Was this pt's CHF, w/EF 55-60%: A. "Chronic CHF w/preserved EF", or B. "Acute on Chronic CHF w/preserved EF", or C. other (specify) Thanks for your help - and your beautiful documentation of the LEO w/Cr levels, + the supporting evidence for your dx.s! CK
== END 2018-03-26 18:17 | disposition home health service (06) | DRG 915 ==
LOC: EDBD → ER 20:41 → EH 03-12 00:26 → ICU 03-12 10:57 → 4W 03-15 18:28
PROVIDERS: ADMIT Emergency Medicine; ATTEND Emergency Medicine
PROC: 02HV33Z Insertion of Infusion Device into Superior Vena Cava, Percutaneous Approach (ICD-10-PCS; principal; 2018-03-12)
PROC: B548ZZA Ultrasonography of Superior Vena Cava, Guidance (ICD-10-PCS; 2018-03-12)
DX: T88.6XXA Anaphylactic reaction due to adverse effect of correct drug or medicament properly administered, initial encounter (principal); J96.01 Acute respiratory failure with hypoxia; N18.6 End stage renal disease; G93.41 Metabolic encephalopathy; C79.31 Secondary malignant neoplasm of brain; N17.9 Acute kidney failure, unspecified; I13.2 Hypertensive heart and chronic kidney disease with heart failure and with stage 5 chronic kidney disease, or end stage renal disease; T45.1X5A Adverse effect of antineoplastic and immunosuppressive drugs, initial encounter; C43.9 Malignant melanoma of skin, unspecified; E11.22 Type 2 diabetes mellitus with diabetic chronic kidney disease; I95.9 Hypotension, unspecified; G47.00 Insomnia, unspecified; E03.9 Hypothyroidism, unspecified; Z79.84 Long term (current) use of oral hypoglycemic drugs; Z79.899 Other long term (current) drug therapy; I50.9 Heart failure, unspecified; E86.0 Dehydration; Y92.009 Unspecified place in unspecified non-institutional (private) residence as the place of occurrence of the external cause
CPT/HCPCS: 36415; 70450; 71045; 80048; 80053; 80076; 82140; 82803; 82962; 83036; 83605; 83735; 83880; 84443; 85025; 85027; 85610; 87040; 90471; 90686; 93005; 93010; 93306; 94640; 94667; 94668; 94799; 96361; 96365; 99291; C1751; G0008; J1100; J1652; J1815; J1885; J1953; J2185; J2270; J2543; J3490; J7030; J7060; J7620; S0164

== ENCOUNTER 2018-04-14 08:09 | Inpatient (IN) | payer MEDICARE ==
[2018-04-14] MEDS ORDERED: LEVETIRACETAM 1000 MG/NACL-ISO 1,000 MG/100 ML RTUPB IV ONE (08:27)
[2018-04-14 09:11] LABS: HEMATOCRIT 40.3 % (36.0-47.0); HEMOGLOBIN 13.8 g/dL (12.0-15.5); INTERNATIONAL RATION (INR) 0.78; MEAN CORPUSCULAR HEMOGLOBIN 31.5 pg (27.0-33.4); MEAN CORPUSCULAR HGB CONC 34.3 g/dL (32.0-36.0); MEAN CORPUSCULAR VOLUME 92 fl (80-97); PLATELET COUNT 262 10^3/uL (150-450); PROTHROMBIN TIME 11.3 SEC (11.4-15.4); RED BLOOD COUNT 4.38 10^6/uL (3.72-5.28); RED CELL DISTRIBUTION WIDTH 16.3 % (11.5-14.0); WHITE BLOOD COUNT 12.1 10^3/uL (4.0-10.5)
[2018-04-14 09:15] LABS: ALANINE AMINOTRANSFERASE 31 U/L (9-52); ALBUMIN 3.7 g/dL (3.5-5.0); ALKALINE PHOSPHATASE 82 U/L (38-126); ANION GAP 13 (5-19); ASPARTATE AMINO TRANSFERASE 28 U/L (14-36); BILIRUBIN,DIRECT 0.5 mg/dL (0.0-0.4); BILIRUBIN,TOTAL 0.9 mg/dL (0.2-1.3); BLOOD UREA NITROGEN 97 mg/dL (7-20); CALCIUM 9.6 mg/dL (8.4-10.2); CARBON DIOXIDE 32 mmol/L (22-30); CHLORIDE 89 mmol/L (98-107); GLUCOSE 161 mg/dL (75-110); POTASSIUM 4.8 mmol/L (3.6-5.0); SODIUM 134.2 mmol/L (137-145); TOTAL PROTEIN 6.1 g/dL (6.3-8.2)
[2018-04-14 09:21] LABS: APPEARANCE,URINE SLIGHTLY-CLOUDY; BILIRUBIN,URINE SMALL (NEGATIVE); COLOR,URINE YELLOW; GLUCOSE, URINE NEGATIVE (NEGATIVE); KETONES,URINE NEGATIVE (NEGATIVE); LEUKOCYTE ESTERASE,URINE NEGATIVE (NEGATIVE); NITRITE,URINE NEGATIVE (NEGATIVE); PROTEIN,URINE NEGATIVE (NEGATIVE); URINE SPECIFIC GRAVITY 1.016; UROBILINOGEN,URINE NEGATIVE mg/dL (<2.0)
[2018-04-14 09:30] LABS: ABSOLUTE LYMPHOCYTES# (MANUAL) 0.8 10^3/uL (0.5-4.7); ABSOLUTE MONOCYTES # (MANUAL) 1.1 10^3/uL (0.1-1.4); ABSOLUTE NEUTROPHILS# (MANUAL) 10.2 10^3/uL (1.7-8.2); ANISOCYTOSIS 1+; BAND NEUTROPHILS % (MANUAL) 8 % (3-5); BASOPHILS % (MANUAL) 0 % (0-2); EOSINOPHILS % (MANUAL) 0 % (0-6); LYMPHOCYTES % (MANUAL) 7 % (13-45); METAMYELOCYTES % (MANUAL) 1 % (0); MONOCYTES % (MANUAL) 9 % (3-13); OVALOCYTES SLIGHT; PLATELET COMMENT ADEQUATE; POIKILOCYTOSIS SLIGHT; SEGMENTED NEUTROPHILS % (MAN) 75 % (42-78); TOTAL CELLS COUNTED 100
[2018-04-14] MEDS ORDERED: NORMAL SALINE 1000 ML 1,000 ML IV ONE ×3 (11:08→14:17)
[2018-04-14] MEDS ORDERED: IPRATROPIUM/ALBUTEROL 0.5-2.5 MG/3 ML AMPUL NEB ONE (11:11)
--- NOTE | 2018-04-14 11:50 | RADIOLOGY REPORT (SQ) ---
EXAM DESCRIPTION: CHEST SINGLE VIEW COMPLETED DATE/TIME: 04/14/2018 11:37 am REASON FOR STUDY: SOB COMPARISON: Chest film 03/11/2018, 03/12/2018 CT chest 05/22/2017 EXAM PARAMETERS: NUMBER OF VIEWS: One view. TECHNIQUE: Single frontal radiographic view of the chest acquired. RADIATION DOSE: NA LIMITATIONS: None. FINDINGS: LUNGS AND PLEURA: Stable right apical pleuroparenchymal scarring. No acute infiltrates. No pleural effusion. No pneumothorax. MEDIASTINUM AND HILAR STRUCTURES: No masses. Contour normal. HEART AND VASCULAR STRUCTURES: Heart normal in size. Normal vasculature. BONES: No acute findings. HARDWARE: None in the chest. OTHER: No other significant finding. IMPRESSION: NO ACUTE RADIOGRAPHIC FINDING IN THE CHEST. TECHNICAL DOCUMENTATION: JOB ID: [id number] [employer]- All Rights Reserved Reading location - IP/workstation name: [email or web address]
--- NOTE | 2018-04-14 14:12 | ER Document Report ---
Entered by TANYA EASTON SCRIBE 04/14/18 0824 Acting as scribe for:DARRELL SHAH MD ED General - General Stated Complaint: POSSIBLE SEIZURE Time Seen by Provider: 04/14/18 08:10 Primary Care Provider: MEREDITH BOTELLO MD [Primary Care Provider] - Follow up as needed Mode of Arrival: Medic Information source: Patient Notes: Patient is a 62 year old female with melanoma with brain mets, HTN, hypothyroidism, diabetes presents to the emergency department via EMS accompanied by step sister complaining of AMS. Step sister states the patient woke up this morning behaving differently and being less active. She states last night, the patient was talking, walking and communicating well. She states this morning, the patient would not speak or make direct eye contact when called. She states the patient intermittently behaves this way, further stating she is somet imes confused and does not communicate. EMS reports a possible seizure although step sister states she is unsure if the patient had a seizure or not. Patient was recently admitted to this hospital for pneumonia on 03/12/18 and discharged on 03/26/18. She was discharged with a 15 day supply of Keppra that was filled on 03/27/18. Step sister states the patient has been without Keppra for the last few days. TRAVEL OUTSIDE OF THE [place] IN LAST 30 DAYS: No - Related Data Allergies/Adverse Reactions: No Known Allergies Allergy (Unverified 03/14/18 10:22) Past Medical History - General Information source: Patient - Social History Smoking Status: Never Smoker Cigarette use (# per day): No Chew tobacco use (# tins/day): No Smoking Education Provided: No Frequency of alcohol use: None Family History: Malignancy, CAD, DM, Reviewed & Not Pertinent, Other - Past Medical History Cardiac Medical History: Reports: Hx Hypertension Pulmonary Medical History: Reports: Hx Bronchitis, Hx Pneumonia Endocrine Medical History: Reports: Hx Diabetes Mellitus Type 2, Hx Hypothyroidism Renal/ Medical History: Reports: Hx End Stage Renal Disease Malignancy Medical History: Reports: Hx Brain Cancer - Metastatic melanoma GI Medical History: Musculoskeletal Medical History: Reports Hx Arthritis - Knees, Reports Hx Muscle Weakness - rt. shoulder pain, Reports Hx Musculoskeletal Deformity, Reports Hx Musculoskeletal Trauma Skin Medical History: Reports Hx Cellulitis Psychiatric Medical History: Reports: Hx Depression Traumatic Medical History: Reports: Hx Fractures Infectious Medical History: Past Surgical History: Reports: Hx Orthopedic Surgery - bilateral knees, bilateral ankles, bilateral shoulders - Immunizations Immunizations up to date: Yes Hx Diphtheria, Pertussis, Tetanus Vaccination: Yes Hx Pneumococcal Vaccination: 03/18/13 Review of Systems - Review of Systems Constitutional: No symptoms reported EENT: No symptoms reported Cardiovascular: No symptoms reported Respiratory: No symptoms reported Gastrointestinal: No symptoms reported Genitourinary: No symptoms reported Female Genitourinary: No symptoms reported Musculoskeletal: No symptoms reported Skin: No symptoms reported Hematologic/Lymphatic: No symptoms reported Neurological/Psychological: See HPI, Confusion, Seizure -: Yes All other systems reviewed and negative Physical Exam - Vital signs Vitals: Resp Pulse Ox 20 95 04/14/18 08:14 04/14/18 08:14 - Notes Notes: GENERAL: Alert, awake. Does not speak. HEAD: Normocephalic, atraumatic. Patient is bald secondary to her oncology treatments. EYES: Pupils equal, round, and reactive to light. Extraocular movements intact. ENT: Oral mucosa moist, tongue midline. NECK: Full range of motion. Supple. Trachea midline. LUNGS: Diffuse mild wheezes with some upper airway obstructive sounds which may be related to position. Patient is obese, laying flat on her back with her neck flexed somewhat. This does not seem to cause her distress, as she is able to snore in that position without her oxygen saturation going down. HEART: Regular rate and rhythm. No murmurs, gallops, or rubs. ABDOMEN: Soft, non-tender. Non-distended. Bowel sounds present in all 4 quadrants. No guarding, rigidity, or rebound. EXTREMITIES: Moves all 4 extremities spontaneously. Right lower extremity is quite cool cool to touch below the knee, a little cyanotic appearing, with capillary refill >5 seconds. LLE is normal warmth to touch. There is a boot on left foot, relative states patient wears this for comfort. NEUROLOGICAL: Alert, awake. Does not seem to interact or recognize her relative. The relative states that this does occur frequently that sometimes she is comp letely alert and interactive and other times there is just a blank stare.. PSYCH: Does not interact at this time. SKIN: Dry, normal turgor. Course - Re-evaluation Re-evalutation: 04/14/18 08:[address] Asaad, patient's oncologist. She states she is aware of the patient's intermittent confusion but unaware of the patient's right lower extremity being cool to touch. 04/14/18 11:11 The patient's blood pressure initially was a little bit low at 109/73. It has continued to drift down to a systolic pressure in the 70s. Reviewing her lab work it appears that her BUN and creatinine are much higher than her baseline. She will be given a liter of normal saline see if it corrects her blood pressure. At this time I am still waiting for official report on the arterial Doppler, but the preliminary worksheet suggests there is no inflow circulatory problem. - Vital Signs Vital signs: Temp Pulse Resp BP Pulse Ox 97.8 F 26 H 107/66 93 04/14/18 08:17 04/14/18 14:03 04/14/18 13:46 04/14/18 14:03 - Laboratory Result Diagrams: 04/14/18 08:48 04/14/18 08:48 Laboratory results interpreted by me: 04/14/18 04/14/18 04/14/18 08:48 08:48 08:48 WBC 12.1 H RDW 16.3 H Band Neutrophils % 8 H Lymphocytes % (Manual) 7 L Metamyelocytes % 1 H Abs Neuts (Manual) 10.2 H PT 11.3 L Sodium 134.2 L Chloride 89 L Carbon Dioxide 32 H BUN 97 H Creatinine 2.64 H Est GFR ( Amer) 22 L Est GFR (Non-Af Amer) 18 L Glucose 161 H Magnesium 3.0 H Direct Bilirubin 0.5 H Total Protein 6.1 L Urine Blood Urine Bilirubin 04/14/18 08:59 WBC RDW Band Neutrophils % Lymphocytes % (Manual) Metamyelocytes % Abs Neuts (Manual) PT Sodium Chloride Carbon Dioxide BUN Creatinine Est GFR ( Amer) Est GFR (Non-Af Amer) Glucose Magnesium Direct Bilirubin Total Protein Urine Blood MODERATE H Urine Bilirubin SMALL H - Diagnostic Test Radiology reviewed: Image reviewed, Reports reviewed - Chest x-ray is unremarkable. CT scan of the head today compared to 03/12/2018 shows multiple new lesions in the brain, and significant enlargement of lesions that were seen 1 month ago. - EKG Interpretation by Me EKG shows normal: Sinus rhythm, [place], Intervals, QRS Complexes. abnormal: ST-T Waves - Nonspecific anterior lateral T abnormalities Rate: Normal - 75 Rhythm: NSR When compared to previous EKG there are: No significant change - Consults Dr. Sanches Time consulted: 14:02 Consulted provider: will come to ER - Admit to a regular medical floor bed. 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 Altered mental status Qualifiers: Altered mental status type: unspecified Qualified Code(s): R41.82 - Altered mental status, unspecified Hypotension Qualifiers: Hypotension type: unspecified hypotension type Qualified Code(s): I95.9 - Hypotension, unspecified Condition: Poor Disposition: ADMITTED INPATIENT Admitting Provider: Hospitalist Unit Admitted: Medical Floor Referrals: MEREDITH BOTELLO MD [Primary Care Provider] - Follow up as needed Scribe Attestation: 04/14/18 11:11 I personally performed the services described in the documentation, reviewed and edited the documentation which was dictated to the scribe in my presence, and it accurately records my words and actions. I personally performed the services described in the documentation, reviewed and edited the documentation which was dictated to the scribe in my presence, and it accurately records my words and actions.
--- NOTE | 2018-04-14 14:25 | RADIOLOGY REPORT (SQ) ---
EXAM DESCRIPTION: CT HEAD WITHOUT COMPLETED DATE/TIME: 04/14/2018 2:07 pm REASON FOR STUDY: Brain metastases, altered mental status COMPARISON: CT brain 03/12/2018 TECHNIQUE: Axial images acquired through the brain without intravenous contrast. Images reviewed wi th bone, brain and subdural windows. Additional sagittal and coronal reconstructions were generated. Images stored on PACS. All CT scanners at this facility use dose modulation, iterative reconstruction, and/or weight based d osing when appropriate to reduce radiation dose to as low as reasonably achievable (ALARA). [facility]: Dose Right [facility]: CareDose [facility]: Dose Right [facility]: Teradose 4D [facility]: Smart [employer] RADIATION DOSE: CT Rad equipment meets quality standard of care and radiation dose reduction techniq ues were employed. CTDIvol: 53.2 - 55.2 mGy. DLP: 1965 mGy-cm. mGy. LIMITATIONS: None. FINDINGS: VENTRICLES: Partial effacement of the with left frontal horn lateral ventricle related to a metastatic lesion left caudate, increased in size compared to 03/12/2018 CEREBRUM: There are multiple hyperdense melanoma metastatic lesions throughout the cerebral hemispher es. These have all increased in size compared to 03/12/2018. There is now significant vasogenic jony a surrounding these lesions. Index lesions are as follows: Right lateral basal ganglia 1.6 cm diameter axial image 17 (was 1.2 cm 03/12/2018) Left caudate 1.1 cm lesion axial image 20 (was 0.5 cm 03/12/2018). No CT evidence of acute intracranial hemorrhage. No midline shift. No CT findings worrisome for acu te large territory ischemic change. CEREBELLUM: No masses. No hemorrhage. No alteration of density. No evidence for acute infarction. EXTRAAXIAL SPACES: No fluid collections. No masses. ORBITS AND GLOBE: No intra- or extraconal masses. Normal contour of globe without masses. CALVARIUM: No fracture. PARANASAL SINUSES: Opacified left maxillary sinus, fluid in the ethmoid and sphenoid sinuses worrisom e for sinusitis SOFT TISSUES: No mass or hematoma. OTHER: No other significant finding. IMPRESSION: Increase in size and number of brain metastatic lesions with increasing vasogenic edema. Findings discussed with Dr. Akins in the emergency room, 1350 hours 04/14/2018 EVIDENCE OF ACUTE STROKE: NO. COMMENT: Quality ID # [id number]: Final reports with documentation of one or more dose reduction techniques (e.g., Automated exposure control, adjustment of the mA and/or kV according to patient size, use of iterative reconstruction technique) TECHNICAL DOCUMENTATION: JOB ID: [id number] [employer]- All Rights Reserved Reading location - IP/workstation name: [facility] CENTERFidelina
[2018-04-14] MEDS ORDERED: NORMAL SALINE 1000 ML 1,000 ML IV PRN (14:38)
[2018-04-14] MEDS ORDERED: HYDRALAZINE HCL INJ/PF 20 MG/1 ML SDV IV PRN (14:40)
[2018-04-14] MEDS: HALOPERIDOL LACTATE INJ 5 MG/1 ML VIAL IV PRN ×2 (14:58→22:18)
[2018-04-14] MEDS ORDERED: LORAZEPAM INJ 2 MG/1 ML VIAL ONE (15:17)
[2018-04-14] MEDS ORDERED: LORAZEPAM INJ 2 MG/1 ML VIAL IV ONE (15:19)
[2018-04-14] MEDS ORDERED: LORAZEPAM INJ 2 MG/1 ML VIAL IV PRN (15:21)
[2018-04-14 16:48] VITALS: BP 96/48
--- NOTE | 2018-04-14 17:03 | XCELERA REPORT ---
[address] [address] Lower Extremity Arterial Evaluation Name: EZ OZUNA Age: 62 yrs Gender: Female : 1955 Patient Status: Preadmit Patient Location: ER Study Date: 04/14/2018 09:17 AM Procedure: A color flow and duplex scan of the lower extremity arteries was performed on the right with velocity and waveform anaylsis. Reason For Study: cold right leg and foot, 5 sec cap refill Ordering Physician: DARRELL SHAH Performed By: Deyvi Victor Measurements and Calculations Right Left [address] FOREMAN PSV 112.4 cm/sec Prox PFA PSV -72.0 cm/sec Prox SFA PSV 77.6 cm/sec Mid SFA PSV -87.1 cm/sec Dist SFA PSV -75.5 cm/sec Prox Pop A PSV 54.5 cm/sec Dist LUTHER PSV 60.1 cm/sec Dist SHANK SANDER PSV 43.8 cm/sec Parker Pedis PSV 40.7 -23.6 cm/sec Right Side Arterial Evaluation Normal velocity and triphasic waveforms noted from the Common Femoral artery to the infrageniculate vessels . Ankle Brachial index not obtained. Left Side Arterial Evaluation Limited evaluation shows triphasic, low velocity int the Dorsalis Pedis. Interpretation Summary No hemodynamically significant lesions in the right lower extremity only, on duplex imaging, at rest. Very limited study on the left may show mild compromise. : DARRELL SHAH > David Beard
[2018-04-14] MEDS: DEXAMETHASONE 4 MG TABLET PO SCH ×2 (17:25→21:42)
[2018-04-14] MEDS: LEVETIRACETAM 500 MG TABLET PO SCH ×2 (17:25→21:42)
--- NOTE | 2018-04-14 18:44 | PDOC H&P ---
History of Present Illness Admission Date/PCP: 04/14/18 14:26 MEREDITH BOTELLO MD Patient complains of: more confused History of Present Illness: EZ OZUNA is a 62 year old female with a PMH of metastatic melanoma to the brain, HTN, hypothyroidism, diabetes mellitus who was brought in due to being more confused and less active than her baseline noticed by patient's sister. Patient reportedly is less communicative than her previous state. EMS reported possible seizure-like activity. In the ER, she was found to be in acute renal failure. Head CT shows increase in size and number of metastases. Recent discharge summary states patient was made DNR but she is not under hospice care yet. Atempted to call [facility] over the phone but did not get any response. Addendum: Finally able to get hold of [facility]. Discussed results and status of patient as she is getting more agitated in the ER. Discussed CT showing increase in number and size of brain mets. She verbalized she just wants her to be comfortable and is amenable to transition her to hospice. Discussed comfort care measures and she is agreeable to proceeding. Will make patient comfort measures. Past Medical History Cardiac Medical History: Reports: Hypertension Pulmonary Medical History: Reports: Bronchitis, Pneumonia Endocrine Medical History: Reports: Diabetes Mellitus Type 2, Hypothyroidism Denies: Diabetes Mellitus Type 1 Renal/ Medical History: Reports: End Stage Renal Disease Malignancy Medical History: Reports: Brain Cancer - Metastatic melanoma GI Medical History: Musculoskeltal Medical History: Reports: Arthritis - Knees Psychiatric Medical History: Reports: Depression Hematology: Denies: Anemia Past Surgical History Past Surgical History: Reports: Orthopedic Surgery - bilateral knees, bilateral ankles, bilateral shoulders Social History Smoking Status: Never Smoker Frequency of Alcohol Use: Heavy Hx Recreational Drug Use: No Drugs: None Hx Prescription Drug Abuse: No Family History Family History: Malignancy, CAD, DM, Reviewed & Not Pertinent, Other Parental Family History Reviewed: No - ams Children Family History Reviewed: No Sibling(s) Family History Reviewed.: No Medication/Allergy Home Medications: Duloxetine HCl 60 mg PO DAILY 12/02/13 Trazodone HCl [Desyrel] 100 mg PO QHS 12/02/13 Amiodarone HCl [Cordarone 200 mg Tablet] 200 mg PO DAILY 03/12/18 Carvedilol [Coreg 3.125 mg Tablet] 3.125 mg PO Q12 03/12/18 Cyclobenzaprine HCl [Flexeril 10 mg Tablet] 10 mg PO Q8HP PRN 03/12/18 Furosemide [Lasix 40 mg Tablet] 40 mg PO BID 03/12/18 Lisinopril [Prinivil 5 mg Tablet] 2.5 mg PO DAILY 03/12/18 Magnesium Oxide [Mag-Ox 400 mg Tablet] 400 mg PO BID 03/12/18 Metformin HCl [Glucophage 500 mg Tablet] 1,000 mg PO BIDACBS 03/12/18 Morphine Sulfate [Morphine Sulfate ER] 30 mg PO Q12 03/12/18 Polyethylene Glycol 3350 [Miralax Powder 17 gm/Packet] 1 packet PO DAILY 03/12/18 Pregabalin [Lyrica 100 mg Capsule] 100 mg PO Q8 03/12/18 Dexamethasone [Decadron 4 mg Tablet] 2 mg PO BID #30 tablet 03/26/18 Levetiracetam [Keppra 500 mg Tablet] 500 mg PO Q12 #30 tablet 03/26/18 Albuterol Sulfate [Proair Hfa Inhalation Aerosol 8.5 gm Mdi] 2 puff IH Q6HP PRN 04/14/18 Albuterol Sulfate [Ventolin 0.083% Neb 2.5 mg/3 ml Ampul] 1 vial NEB Q6HP PRN 04/14/18 Levothyroxine Sodium [Synthroid 0.025 mg Tablet] 25 mcg PO Q6AM 04/14/18 Morphine Sulfate [Morphine Ir 15 Mg Tablet] 15 mg PO Q4HP PRN 04/14/18 Allergies/Adverse Reactions: No Known Allergies Allergy (Unverified 03/14/18 10:22) Review of Systems ROS unobtainable: Due to mental status Physical Exam Vital Signs: Temp Pulse Resp BP Pulse Ox 97.8 F 18 107/66 93 04/14/18 08:17 04/14/18 14:25 04/14/18 13:46 04/14/18 14:03 Intake & Output 04/13/18 04/14/18 04/15/18 06:59 06:59 06:59 Intake Total 2100 Balance 2100 General appearance: PRESENT: no acute distress, well-developed, well-nourished Head exam: PRESENT: atraumatic, normocephalic Eye exam: PRESENT: conjunctiva pink, EOMI, PERRLA. ABSENT: scleral icterus Ear exam: PRESENT: normal external ear exam Mouth exam: PRESENT: moist, tongue midline Neck exam: ABSENT: carotid bruit, JVD, lymphadenopathy, thyromegaly Respiratory exam: PRESENT: clear to auscultation nancy. ABSENT: rales, rhonchi, wheezes Cardiovascular exam: PRESENT: RRR. ABSENT: diastolic murmur, rubs, systolic murmur Pulses: PRESENT: normal dorsalis pedis pul GI/Abdominal exam: PRESENT: normal bowel sounds, soft. ABSENT: distended, guarding, mass, organolmegaly, rebound, tenderness Rectal exam: PRESENT: deferred Neurological exam: PRESENT: awake, oriented to person. ABSENT: oriented to place, oriented to time, oriented to situation, motor sensory deficit Results Laboratory Results: 04/14/18 08:48 04/14/18 08:48 04/14/18 04/14/18 04/14/18 08:48 08:48 08:48 WBC 12.1 H RBC 4.38 Hgb 13.8 Hct 40.3 MCV 92 MCH 31.5 MCHC 34.3 RDW 16.3 H Plt Count 262 Seg Neutrophils % Not Reportable Lymphocytes % Not Reportable Monocytes % Not Reportable Eosinophils % Not Reportable Basophils % Not Reportable Absolute Neutrophils Not Reportable Absolute Lymphocytes Not Reportable Absolute Monocytes Not Reportable Absolute Eosinophils Not Reportable Absolute Basophils Not Reportable Sodium 134.2 L Potassium 4.8 Chloride 89 L Carbon Dioxide 32 H Anion Gap 13 BUN 97 H Creatinine 2.64 H Est GFR ( Amer) 22 L Est GFR (Non-Af Amer) 18 L Glucose 161 H Lactic Acid 1.7 Calcium 9.6 Magnesium 3.0 H Total Bilirubin 0.9 AST 28 ALT 31 Alkaline Phosphatase 82 Total Protein 6.1 L Albumin 3.7 Urine Color Urine Appearance Urine pH Ur Specific [place] Urine Protein Urine Glucose (UA) Urine Ketones Urine Blood Urine Nitrite Ur Leukocyte Esterase Urine WBC (Auto) Urine RBC (Auto) 04/14/18 08:59 WBC RBC Hgb Hct MCV MCH MCHC RDW Plt Count Seg Neutrophils % Lymphocytes % Monocytes % Eosinophils % Basophils % Absolute Neutrophils Absolute Lymphocytes Absolute Monocytes Absolute Eosinophils Absolute Basophils Sodium Potassium Chloride Carbon Dioxide Anion Gap BUN Creatinine Est GFR ( Amer) Est GFR (Non-Af Amer) Glucose Lactic Acid Calcium Magnesium Total Bilirubin AST ALT Alkaline Phosphatase Total Protein Albumin Urine Color YELLOW Urine Appearance SLIGHTLY-CLOUDY Urine pH 5.0 Ur Specific [place] 1.016 Urine Protein NEGATIVE Urine Glucose (UA) NEGATIVE Urine Ketones NEGATIVE Urine Blood MODERATE H Urine Nitrite NEGATIVE Ur Leukocyte Esterase NEGATIVE Urine WBC (Auto) 5 Urine RBC (Auto) 10 Impressions: Chest X-Ray 04/14/18 11:07 IMPRESSION: NO ACUTE RADIOGRAPHIC FINDING IN THE CHEST. Head CT 04/14/18 12:27 IMPRESSION: Increase in size and number of brain metastatic lesions with increasing vasogenic edema. Findings discussed with Dr. Akins in the emergency room, 1350 hours 04/14/2018 EVIDENCE OF ACUTE STROKE: NO. Assessment & Plan - Diagnosis (1) Acute encephalopathy Is this a current diagnosis for this admission?: Yes Plan: Likely secondary to worsening brain mets. Will transition to hospice and comfort measures. 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
[2018-04-14] MEDS ORDERED: MORPHINE SULFATE 10 MG/ML INJ IV PRN (18:45)
--- NOTE | 2018-04-14 22:07 | EKG REPORT ---
SEVERITY:- ABNORMAL ECG - SINUS RHYTHM NONSPECIFIC T ABNORMALITIES, ANT-LAT LEADS : Confirmed by: Tolu Dickey 14-Apr-2018 22:06:24
[2018-04-14] MEDS: LORAZEPAM INJ 2 MG/1 ML VIAL IV PRN (22:47)
[2018-04-15] MEDS ORDERED: FONDAPARINUX SODIUM INJ 2.5 MG/0.5 ML DISP.SYRIN SUBCUT SCH (08:00)
[2018-04-15] MEDS: DEXAMETHASONE 4 MG TABLET PO SCH ×3 (08:23→21:46)
[2018-04-15] MEDS: LORAZEPAM INJ 2 MG/1 ML VIAL IV PRN ×2 (08:23→18:40)
--- NOTE | 2018-04-15 08:32 | PDOC CONSULTATION ---
Consultation Consult Date: 04/15/18 Consult reason:: Hematology/Oncology consultation was requested for patient with known metastatic melanoma, brain mets, and increased seizure activity History of Present Illness Admission Date/PCP: 04/14/18 14:26 MEREDITH BOTELLO MD History of Present Illness: EZ OZUNA is a 62 year old female who has been followed by the undersigned for melanoma. She was found to have brain mets 01/2018 and was started on new treatment, immunotherapy with Yervoy and Opdivo. She had been st able and been independent at home until 2 days ago. Family states that they ran out of her Keppra and pharmacy could not get any for 24 hours. She began having increased confusion, combativeness, and some evidence of seizure activity. She was brought to the ED and repeat scans show progression of her brain mets. She was also found to have acute renal failure. Patient was stabilized and family has requested comfort measures and transition to Hospice care. This morning, patient is still very confused. She is not able to hold any conversation, or follow any commands. Her sister is at bedside. Past Medical History Cardiac Medical History: Reports: Hypertension Pulmonary Medical History: Reports: Bronchitis, Pneumonia Endocrine Medical History: Reports: Diabetes Mellitus Type 2, Hypothyroidism Denies: Diabetes Mellitus Type 1 Renal/ Medical History: Reports: End Stage Renal Disease Malignancy Medical History: Reports: Brain Cancer - Metastatic melanoma GI Medical History: Musculoskeltal Medical History: Reports: Arthritis - Knees Psychiatric Medical History: Reports: Depression Hematology: Denies: Anemia Past Surgical History Past Surgical History: Reports: Orthopedic Surgery - bilateral knees, bilateral ankles, bilateral shoulders Social History Smoking Status: Never Smoker Frequency of Alcohol Use: Heavy Hx Recreational Drug Use: No Drugs: None Hx Prescription Drug Abuse: No - Advance Directive Resuscitation Status: Do Not Resuscitate Family History Family History: Malignancy, CAD, DM, Reviewed & Not Pertinent, Other Family History: Aunt with breast cancer Parental Family History Reviewed: Yes - Both with DM Children Family History Reviewed: NA Sibling(s) Family History Reviewed.: Yes Medication/Allergy Home Medications: Duloxetine HCl 60 mg PO DAILY 12/02/13 Trazodone HCl [Desyrel] 100 mg PO QHS 12/02/13 Amiodarone HCl [Cordarone 200 mg Tablet] 200 mg PO DAILY 03/12/18 Carvedilol [Coreg 3.125 mg Tablet] 3.125 mg PO Q12 03/12/18 Cyclobenzaprine HCl [Flexeril 10 mg Tablet] 10 mg PO Q8HP PRN 03/12/18 Furosemide [Lasix 40 mg Tablet] 40 mg PO BID 03/12/18 Lisinopril [Prinivil 5 mg Tablet] 2.5 mg PO DAILY 03/12/18 Magnesium Oxide [Mag-Ox 400 mg Tablet] 400 mg PO BID 03/12/18 Metformin HCl [Glucophage 500 mg Tablet] 1,000 mg PO BIDACBS 03/12/18 Morphine Sulfate [Morphine Sulfate ER] 30 mg PO Q12 03/12/18 Polyethylene Glycol 3350 [Miralax Powder 17 gm/Packet] 1 packet PO DAILY 03/12/18 Pregabalin [Lyrica 100 mg Capsule] 100 mg PO Q8 03/12/18 Dexamethasone [Decadron 4 mg Tablet] 2 mg PO BID #30 tablet 03/26/18 Levetiracetam [Keppra 500 mg Tablet] 500 mg PO Q12 #30 tablet 03/26/18 Albuterol Sulfate [Proair Hfa Inhalation Aerosol 8.5 gm Mdi] 2 puff IH Q6HP PRN 04/14/18 Albuterol Sulfate [Ventolin 0.083% Neb 2.5 mg/3 ml Ampul] 1 vial NEB Q6HP PRN 04/14/18 Levothyroxine Sodium [Synthroid 0.025 mg Tablet] 25 mcg PO Q6AM 04/14/18 Morphine Sulfate [Morphine Ir 15 Mg Tablet] 15 mg PO Q4HP PRN 04/14/18 Allergies/Adverse Reactions: No Known Allergies Allergy (Unverified 03/14/18 10:22) Review of Systems ROS unobtainable: Due to mental status Physical Exam Vital Signs: Temp Pulse Resp BP Pulse Ox 98.2 F 73 18 96/48 L 92 04/14/18 16:31 04/14/18 16:31 04/14/18 16:31 04/14/18 16:31 04/14/18 16:31 Intake & Output 04/14/18 04/15/18 04/16/18 06:59 06:59 06:59 Intake Total 4100 Balance 4100 Weight 88 kg General appearance: PRESENT: obese Exam: 62 year old female. Head exam: PRESENT: atraumatic, normocephalic Eye exam: PRESENT: EOMI Mouth exam: PRESENT: dry mucosa, neck supple Neck exam: ABSENT: lymphadenopathy, tenderness Respiratory exam: PRESENT: clear to auscultation nancy, unlabored Cardiovascular exam: PRESENT: RRR GI/Abdominal exam: PRESENT: soft. ABSENT: organolmegaly, tenderness Extremities exam: ABSENT: pedal edema Neurological exam: PRESENT: awake. ABSENT: oriented to person, oriented to place, oriented to time, oriented to situation Psychiatric exam: PRESENT: agitated Focused psych exam: PRESENT: restlessness Skin exam: PRESENT: normal color Results Laboratory Results: 04/14/18 08:48 04/14/18 08:48 04/14/18 04/14/18 04/14/18 08:48 08:48 08:48 WBC 12.1 H RBC 4.38 Hgb 13.8 Hct 40.3 MCV 92 MCH 31.5 MCHC 34.3 RDW 16.3 H Plt Count 262 Seg Neutrophils % Not Reportable Lymphocytes % Not Reportable Monocytes % Not Reportable Eosinophils % Not Reportable Basophils % Not Reportable Absolute Neutrophils Not Reportable Absolute Lymphocytes Not Reportable Absolute Monocytes Not Reportable Absolute Eosinophils Not Reportable Absolute Basophils Not Reportable Sodium 134.2 L Potassium 4.8 Chloride 89 L Carbon Dioxide 32 H Anion Gap 13 BUN 97 H Creatinine 2.64 H Est GFR ( Amer) 22 L Est GFR (Non-Af Amer) 18 L Glucose 161 H Lactic Acid 1.7 Calcium 9.6 Magnesium 3.0 H Total Bilirubin 0.9 AST 28 ALT 31 Alkaline Phosphatase 82 Total Protein 6.1 L Albumin 3.7 Urine Color Urine Appearance Urine pH Ur Specific [place] Urine Protein Urine Glucose (UA) Urine Ketones Urine Blood Urine Nitrite Ur Leukocyte Esterase Urine WBC (Auto) Urine RBC (Auto) 04/14/18 08:59 WBC RBC Hgb Hct MCV MCH MCHC RDW Plt Count Seg Neutrophils % Lymphocytes % Monocytes % Eosinophils % Basophils % Absolute Neutrophils Absolute Lymphocytes Absolute Monocytes Absolute Eosinophils Absolute Basophils Sodium Potassium Chloride Carbon Dioxide Anion Gap BUN Creatinine Est GFR ( Amer) Est GFR (Non-Af Amer) Glucose Lactic Acid Calcium Magnesium Total Bilirubin AST ALT Alkaline Phosphatase Total Protein Albumin Urine Color YELLOW Urine Appearance SLIGHTLY-CLOUDY Urine pH 5.0 Ur Specific [place] 1.016 Urine Protein NEGATIVE Urine Glucose (UA) NEGATIVE Urine Ketones NEGATIVE Urine Blood MODERATE H Urine Nitrite NEGATIVE Ur Leukocyte Esterase NEGATIVE Urine WBC (Auto) 5 Urine RBC (Auto) 10 Impressions: Chest X-Ray 04/14/18 11:07 IMPRESSION: NO ACUTE RADIOGRAPHIC FINDING IN THE CHEST. Head CT 04/14/18 12:27 IMPRESSION: Increase in size and number of brain metastatic lesions with increasing vasogenic edema. Findings discussed with Dr. Akins in the emergency room, 1350 hours 04/14/2018 EVIDENCE OF ACUTE STROKE: NO. 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 (2) Seizure Is this a current diagnosis for this admission?: Yes Plan: Continue Keppra if possible. She is also on dexamethasone. This dose has been increased appropriately for admission. (3) Acute renal failure Qualifiers: Acute renal failure type: unspecified Qualified Code(s): N17.9 - Acute kidney failure, unspecified Is this a current diagnosis for this admission?: Yes Plan: Comfort measures only. - Plan Summary Plan Summary: I discussed with sister. She is in agreement with comfort measures only and transition to Hospice. However, There are no family members able to stay with patient 24 hours a day currently. Patient would be a good candidate for Hospice House during this time period. I believe she has only a few weeks life expectancy. Will NOT order IV fluids, Labs, etc. Will continue meds to prevent further seizures and for comfort.
[2018-04-15] MEDS ORDERED: MORPHINE SULFATE IR 15 MG TABLET PO PRN (10:57)
[2018-04-15] MEDS: LEVETIRACETAM 500 MG TABLET PO SCH ×2 (11:29→21:46)
--- NOTE | 2018-04-15 15:14 | PDOC PROGRESS REPORT ---
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 She brought from home with chief complaint of increased confusion and combativeness. Patient has been on immunotherapy. Her CT scan which was done yesterday reported as showing increase in size and number of metastatic lesions. At this point family and POA requested comfort cares only. Now patient awaiting hospice placement. Reason For Visit: ACUTE RENAL FAILURE, METASTATIC MELANOMA Physical Exam Vital Signs: Temp Pulse Resp BP Pulse Ox 98.2 F 73 18 96/48 L 92 04/14/18 16:31 04/14/18 16:31 04/14/18 16:31 04/14/18 16:31 04/14/18 16:31 Intake & Output 04/14/18 04/15/18 04/16/18 06:59 06:59 06:59 Intake Total 4100 Balance 4100 Weight 88 kg General appearance: PRESENT: other - Patient feels from steroid use Results Laboratory Results: 04/14/18 08:48 04/14/18 08:48 Impressions: Chest X-Ray 04/14/18 11:07 IMPRESSION: NO ACUTE RADIOGRAPHIC FINDING IN THE CHEST. Head CT 04/14/18 12:27 IMPRESSION: Increase in size and number of brain metastatic lesions with increasing vasogenic edema. Findings discussed with Dr. Akins in the emergency room, 1350 hours 04/14/2018 EVIDENCE OF ACUTE STROKE: NO. Assessment & Plan - Diagnosis (1) Stage IV melanoma, brain metastasis Is this a current diagnosis for this admission?: Yes Plan: Comfort Care. (2) Acute encephalopathy Is this a current diagnosis for this admission?: Yes Plan: Due to #1
[2018-04-15] MEDS: HALOPERIDOL LACTATE INJ 5 MG/1 ML VIAL IV PRN (20:31)
[2018-04-16] MEDS: LORAZEPAM INJ 2 MG/1 ML VIAL IV PRN ×3 (06:58→16:52)
--- NOTE | 2018-04-16 07:30 | PDOC PROGRESS REPORT ---
Subjective Progress Note for:: 04/16/18 Subjective:: Patient is only able to answer yes no. Unable to have any type of conversation. Nurses report that she was still quite agitated and active last night. Haldol was given and then she pulled out her IV. Ativan has helped to calm her. she now has a sitter. Reason For Visit: ACUTE RENAL FAILURE, METASTATIC MELANOMA Physical Exam Vital Signs: Temp Pulse Resp BP Pulse Ox 98.2 F 73 18 96/48 L 92 04/14/18 16:31 04/14/18 16:31 04/14/18 16:31 04/14/18 16:31 04/14/18 16:31 Intake & Output 04/15/18 04/16/18 04/17/18 06:59 06:59 06:59 Intake Total 4100 50 Balance 4100 50 Weight 88 kg General appearance: PRESENT: obese Head exam: PRESENT: normocephalic Respiratory exam: PRESENT: clear to auscultation nancy Cardiovascular exam: PRESENT: RRR GI/Abdominal exam: PRESENT: normal bowel sounds, soft Neurological exam: PRESENT: awake. ABSENT: oriented to person, oriented to place, oriented to time, oriented to situation Psychiatric exam: PRESENT: agitated Focused psych exam: PRESENT: restlessness Skin exam: PRESENT: normal color Results Laboratory Results: 04/14/18 08:48 04/14/18 08:48 Impressions: Chest X-Ray 04/14/18 11:07 IMPRESSION: NO ACUTE RADIOGRAPHIC FINDING IN THE CHEST. Head CT 04/14/18 12:27 IMPRESSION: Increase in size and number of brain metastatic lesions with increasing vasogenic edema. Findings discussed with Dr. Akins in the emergency room, 1350 hours 04/14/2018 EVIDENCE OF ACUTE STROKE: NO. 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 Patient has requested Palliative care only. She continues Keppra and dexamethasone. (2) Seizure Is this a current diagnosis for this admission?: Yes (3) Acute renal failure Qualifiers: Acute renal failure type: unspecified Qualified Code(s): N17.9 - Acute kidney failure, unspecified Is this a current diagnosis for this admission?: Yes - Plan Summary Plan Summary: I believe she is too much of a fall/safety risk to go home with Hospice. I believe she would be better for inpatient Hospice. Will try to arrange.
[2018-04-16] MEDS ORDERED: MORPHINE SULFATE 10 MG/ML INJ IV PRN (10:32)
--- NOTE | 2018-04-16 10:37 | PDOC PROGRESS REPORT ---
Subjective Progress Note for:: 04/16/18 Subjective:: Patient seen resting comfortably in bed. Sitter is at the bedside. Nursing reports she was quite agitated overnight she pulled out her IV sheet. She is attempted to do the same this morning. She is finally quiet. There presently is no family at the bedside. She has not been able to converse due to her mentation. Review of systems are on to be completed. Reason For Visit: ACUTE RENAL FAILURE, METASTATIC MELANOMA Physical Exam Vital Signs: Temp Pulse Resp BP Pulse Ox 98.2 F 73 18 96/48 L 92 04/14/18 16:31 04/14/18 16:31 04/14/18 16:31 04/14/18 16:31 04/14/18 16:31 Intake & Output 04/15/18 04/16/18 04/17/18 06:59 06:59 06:59 Intake Total 4100 50 Balance 4100 50 Weight 88 kg General appearance: PRESENT: no acute distress, well-developed, well-nourished Head exam: PRESENT: atraumatic, normocephalic Eye exam: PRESENT: conjunctiva pale, EOMI, PERRLA. ABSENT: scleral icterus Ear exam: PRESENT: normal external ear exam Mouth exam: PRESENT: moist, tongue midline Neck exam: ABSENT: carotid bruit, JVD, lymphadenopathy, thyromegaly Respiratory exam: PRESENT: decreased breath sounds, symmetrical, unlabored Cardiovascular exam: PRESENT: RRR. ABSENT: diastolic murmur, rubs, systolic murmur Pulses: PRESENT: normal dorsalis pedis pul Vascular exam: PRESENT: normal capillary refill GI/Abdominal exam: PRESENT: normal bowel sounds, soft. ABSENT: distended, guarding, mass, organolmegaly, rebound, tenderness Rectal exam: PRESENT: deferred Extremities exam: PRESENT: full ROM. ABSENT: calf tenderness, clubbing, pedal edema Musculoskeletal exam: PRESENT: full ROM Neurological exam: PRESENT: alert, altered, CN II-XII grossly intact Psychiatric exam: PRESENT: agitated, anxious Focused psych exam: PRESENT: psychomotor agitation, restlessness Skin exam: PRESENT: dry, intact, warm. ABSENT: cyanosis, rash Results Laboratory Results: 04/14/18 08:48 04/14/18 08:48 Impressions: Chest X-Ray 04/14/18 11:07 IMPRESSION: NO ACUTE RADIOGRAPHIC FINDING IN THE CHEST. Head CT 04/14/18 12:27 IMPRESSION: Increase in size and number of brain metastatic lesions with increasing vasogenic edema. Findings discussed with Dr. Akins in the emergency room, 1350 hours 04/14/2018 EVIDENCE OF ACUTE STROKE: NO. Assessment & Plan - Diagnosis (1) Comfort measures only status Is this a current diagnosis for this admission?: Yes Plan: Patient is on comfort measures only. She has age for melanoma with metastatic lesions in the brain. She remains agitated when awake. She is not going to be able go home with hospice. She is too much for her family to handle at the present time. Will discuss with hospice and need for inpatient center. 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 Treatment has been stopped. She is comfort measures only (4) Dehydration Is this a current diagnosis for this admission?: Yes Plan: No plans for hydration. She will be allowed oral if she is awake enough to take it. (5) Seizure Is this a current diagnosis for this admission?: Yes Plan: We will continue Keppra and Decadron for comfort - Time Time Spent with patient: 25-34 minutes Total Critical Time (Minutes): 20 Medications reviewed and adjusted accordingly: Yes Anticipated discharge: Hospice Within: when bed available - Inpatient Certification Based on my medical assessment, after consideration of the patient's comorbidities, presenting symptoms, or acuity I expect that the services needed warrant INPATIENT care.: Yes I certify that my determination is in accordance with my understanding of Medicare's requirements for reasonable and necessary INPATIENT services [42 CFR 412.3e].: Yes Medical Necessity: Need for Pain Control
[2018-04-16] MEDS: LEVETIRACETAM 500 MG TABLET PO SCH (11:06)
[2018-04-16] MEDS: DEXAMETHASONE 4 MG TABLET PO SCH (11:06)
--- NOTE | 2018-04-16 14:46 | PDOC DISCHARGE SUMMARY ---
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 Is this a current diagnosis for this admission?: Yes (4) Dehydration Is this a current diagnosis for this admission?: Yes (5) Seizure Is this a current diagnosis for this admission?: Yes - Additional Information Resuscitation Status: Comfort Measures Only Discharge Diet: As Tolerated Discharge Activity: Bedrest Home Medications: Duloxetine HCl 60 mg PO DAILY 12/02/13 Trazodone HCl [Desyrel] 100 mg PO QHS 12/02/13 Amiodarone HCl [Cordarone 200 mg Tablet] 200 mg PO DAILY 03/12/18 Carvedilol [Coreg 3.125 mg Tablet] 3.125 mg PO Q12 03/12/18 Cyclobenzaprine HCl [Flexeril 10 mg Tablet] 10 mg PO Q8HP PRN 03/12/18 Furosemide [Lasix 40 mg Tablet] 40 mg PO BID 03/12/18 Lisinopril [Prinivil 5 mg Tablet] 2.5 mg PO DAILY 03/12/18 Magnesium Oxide [Mag-Ox 400 mg Tablet] 400 mg PO BID 03/12/18 Metformin HCl [Glucophage 500 mg Tablet] 1,000 mg PO BIDACBS 03/12/18 Morphine Sulfate [Morphine Sulfate ER] 30 mg PO Q12 03/12/18 Polyethylene Glycol 3350 [Miralax Powder 17 gm/Packet] 1 packet PO DAILY 03/12/18 Pregabalin [Lyrica 100 mg Capsule] 100 mg PO Q8 03/12/18 Dexamethasone [Decadron 4 mg Tablet] 2 mg PO BID #30 tablet 03/26/18 Levetiracetam [Keppra 500 mg Tablet] 500 mg PO Q12 #30 tablet 03/26/18 Albuterol Sulfate [Proair Hfa Inhalation Aerosol 8.5 gm Mdi] 2 puff IH Q6HP PRN 04/14/18 Albuterol Sulfate [Ventolin 0.083% Neb 2.5 mg/3 ml Ampul] 1 vial NEB Q6HP PRN 04/14/18 Levothyroxine Sodium [Synthroid 0.025 mg Tablet] 25 mcg PO Q6AM 04/14/18 Morphine Sulfate [Morphine Ir 15 Mg Tablet] 15 mg PO Q4HP PRN 04/14/18 History of Present Illness Patient complains of: Increase in confusion History of Present Illness: EZ OZUNA is a 62 year old female with a PMH of metastatic melanoma to the brain, HTN, hypothyroidism, diabetes mellitus who was brought in due to being more confused and less active than her baseline noticed by patient's sister. Patient reportedly is less communicative than her previous state. EMS reported possible seizure-like activity. In the ER, she was found to be in acute renal failure. Head CT shows increase in size and number of metastases. Recent discharge summary states patient was made DNR but she is not under hospice care yet. Atempted to call [facility] over the phone but did not get any response. Finally able to get hold of [facility]. Discussed results and status of patient as she is getting more agitated in the ER. Discussed CT showing increase in number and size of brain mets. She verbalized she just wants her to be comfortable and is amenable to transition her to hospice. Discussed comfort care measures and she is agreeable to proceeding. Will make patient comfort measures. Patient was admitted to the medical floor on comfort measures only. Initially, her sister wanted to take her home with home hospice. Over the last 2 days here though she has had increasing agitation which required has required IV Ativan. Her symptoms of agitation, anxiety and pain are too much I think to be handled by home hospice at this time. Case management was consulted. They discussed inpatient hospice with patient's sister Uzma. She has agreed to inpatient hospice care. [facility] she will be discharged there this afternoon. Physical Exam Vital Signs: Temp Pulse Resp BP Pulse Ox 98.2 F 73 18 96/48 L 92 04/14/18 16:31 04/14/18 16:31 04/14/18 16:31 04/14/18 16:31 04/14/18 16:31 Intake & Output 04/15/18 04/16/18 04/17/18 06:59 06:59 06:59 Intake Total 4100 50 Balance 4100 50 Weight 88 kg General appearance: PRESENT: no acute distress, obese, well-developed, well- nourished Head exam: PRESENT: atraumatic, normocephalic Eye exam: PRESENT: conjunctiva pink, EOMI, PERRLA. ABSENT: scleral icterus Ear exam: PRESENT: normal external ear exam Mouth exam: PRESENT: dry mucosa, neck supple, tongue midline Neck exam: ABSENT: carotid bruit, JVD, lymphadenopathy, thyromegaly Respiratory exam: PRESENT: clear to auscultation nancy. ABSENT: rales, rhonchi, wheezes Cardiovascular exam: PRESENT: RRR. ABSENT: diastolic murmur, rubs, systolic murmur Pulses: PRESENT: normal dorsalis pedis pul Vascular exam: PRESENT: normal capillary refill GI/Abdominal exam: PRESENT: normal bowel sounds, soft. ABSENT: distended, guarding, mass, organolmegaly, rebound, tenderness Rectal exam: PRESENT: deferred Extremities exam: PRESENT: full ROM. ABSENT: calf tenderness, clubbing, pedal edema Musculoskeletal exam: PRESENT: full ROM Neurological exam: PRESENT: alert, altered, other - Occasionally can answer yes or no to questions Psychiatric exam: PRESENT: agitated, anxious Focused psych exam: PRESENT: delusional, restlessness Skin exam: PRESENT: dry, intact, warm. ABSENT: cyanosis, rash Results Laboratory Results: 04/14/18 08:48 04/14/18 08:48 Impressions: Chest X-Ray 04/14/18 11:07 IMPRESSION: NO ACUTE RADIOGRAPHIC FINDING IN THE CHEST. Head CT 04/14/18 12:27 IMPRESSION: Increase in size and number of brain metastatic lesions with i ncreasing vasogenic edema. Findings discussed with Dr. Akins in the emergency room, 1350 hours 04/14/2018 EVIDENCE OF ACUTE STROKE: NO. Qualifiers - * PATIENT BEING DISCHARGED WITH ANY OF THE FOLLOWING DIAGNOSIS: No Plan Discharge Plan: [facility] in [place]
== END 2018-04-16 17:30 | disposition hospice, inpatient (51) | DRG 54 ==
LOC: ER 08:09 → INTOOBSV 14:26 → EH 14:26 → 4N 16:09 → OBSVTOIN 04-15 14:53
PROVIDERS: ADMIT Internal Medicine; ATTEND Internal Medicine
DX: C79.31 Secondary malignant neoplasm of brain (principal); N18.6 End stage renal disease; N17.9 Acute kidney failure, unspecified; I12.0 Hypertensive chronic kidney disease with stage 5 chronic kidney disease or end stage renal disease; Z51.5 Encounter for palliative care; G13.1 Other systemic atrophy primarily affecting central nervous system in neoplastic disease; R56.9 Unspecified convulsions; E03.9 Hypothyroidism, unspecified; C43.9 Malignant melanoma of skin, unspecified; E11.22 Type 2 diabetes mellitus with diabetic chronic kidney disease; E86.0 Dehydration; I95.9 Hypotension, unspecified; Z79.84 Long term (current) use of oral hypoglycemic drugs; Z79.891 Long term (current) use of opiate analgesic; Z79.51 Long term (current) use of inhaled steroids; Z79.899 Other long term (current) drug therapy
CPT/HCPCS: 36415; 70450; 71045; 80053; 81001; 83605; 83735; 85025; 85610; 93005; 93010; 93926; 99291; J1630; J1953; J2060; J2270; J3490; J7030; J7620